=== PATIENT | female | born 1955 | race Caucasian/White ===

== ENCOUNTER 2019-06-27 06:43 | Outpatient (CLI) | payer MEDICARE, SELFPAY ==
--- NOTE | 2019-06-27 06:55 | USCV_ITS ---
Susie Villavicencio Age: 63 Gender: F : 1955 Exam Date: 06/27/2019 07:25 Ordering Phys: Maggi Garnett SENIOR RISK MANAGER Technologist: Miranda Paige Exam Location: [facility] – [place] Indication: MURMUR BP: / HR: 73 Rhythm: Sinus Technical Quality: Very poor MEASUREMENTS (Male / Female) Normal Values 2D ECHO LV Diastolic Diameter PLAX 4.8 cm 4.2 - 5.9 / 3.9 - 5.3 cm LV Systolic Diameter PLAX 2.7 cm LV Chamber Size 3.1 cm IVS Diastolic Thickness 1.5 cm 0.6 - 1.0 / 0.6 - 0.9 cm IVS Systolic Thickness 1.8 cm LVPW Diastolic Thickness 1.3 cm 0.6 - 1.0 / 0.6 - 0.9 cm LVPW Systolic Thickness 1.9 cm RV Chamber Size 2.2 cm LVOT Diameter 2.0 cm LV Ejection Fraction 2D Teich 74.2 % LA Diameter 4.5 cm LA Width 3.6 cm LA Height 4.9 cm RA Width 2.3 cm RA Height 4.2 cm M-MODE LV Diastolic Diameter MM 4.8 cm 4.2 - 5.9 / 3.9 - 5.3 cm LV Systolic Diameter MM 3.3 cm LV Ejection Fraction MM Teich 60.1 % IVS Diastolic Thickness MM 1.6 cm 0.6 - 1.0 / 0.6 - 0.9 cm IVS Systolic Thickness MM 1.1 cm LVPW Diastolic Thickness MM 1.3 cm 0.6 - 1.0 / 0.6 - 0.9 cm LVPW Systolic Thickness MM 1.4 cm RV Diastolic Diameter MM 2.6 cm Aortic Annulus Diameter 2.8 cm LA Ao Ratio MM 1.6 MV E Point Septal Separation 0.8 cm DOPPLER AV Peak Velocity 223.0 cm/s LVOT Peak Velocity 91.0 cm/s AV Area Cont Eq vti 1.0 cm squared AV Area Cont Eq pk 1.3 cm squared MV Area PHT 2.2 cm squared Mitral E to A Ratio 1.2 MV E' Velocity 6.0 cm/s Mitral E to MV E' Ratio 24.1 Mitral E to LV E' Lateral Ratio 23.2 Mitral E to LV E' Septal Ratio 25.5 TR Peak Velocity 194.3 cm/s TR Peak Gradient 15.1 mmHg TR Mean Velocity 164.1 cm/s TR Mean Gradient 11.0 mmHg TR Velocity Time Integral 48.5 cm TV Peak E Velocity 73.0 cm/s Right Atrial Pressure 3.0 mmHg Pulmonary Artery Systolic Pressu 18.1 mmHg PV Peak Velocity 80.0 cm/s FINDINGS Left Ventricle Left ventricular cavity not well visualized. Normal left ventricular size, systolic function and wall thickness, with no regional wall motion abnormalities. Normal diastolic function. Left ventricular ejection fraction is estimated at 65%. Right Ventricle Right ventricle not well visualized. Normal right ventricular size and systolic function. Right Atrium The right atrium is normal in size. Left Atrium Mildly increased left atrial size. Left atrium not well visualized. Mitral Valve Mitral valve not well visualized. Aortic Valve Aortic valve not well visualized. Tricuspid Valve Tricuspid valve not well visualized. Pulmonic Valve Pulmonic valve not well visualized. Pericardium Normal pericardium without effusion. Aorta Normal ascending aorta dimension. CONCLUSIONS Left ventricular cavity not well visualized. Normal left ventricular size, systolic function and wall thickness, with no regional wall motion abnormalities. Normal diastolic function. Left ventricular ejection fraction is estimated at 65%. Mildly increased left atrial size. Left atrium not well visualized. There are no prior echocardiogram studies to compare. Dr. Sharan Bailey MD (Electronically Signed) Final Date: 27 June 2019 10:26 S
--- NOTE | 2019-06-27 06:55 | US_ITS ---
WS: [id number] ABDOMINAL ULTRASOUND LIMITED REASON FOR VISIT: ABNORMAL RESULTS OF LIVER FUNCTION STUDIES TECHNIQUE: Grayscale and Doppler ultrasound examination of the abdomen. FINDINGS: Pancreas: Appears normal Abdominal aorta and IVC: Appears normal. Liver: Liver measures 17.1 cm in length. Steatosis changes throughout the liver. Normal hepatopedal c irculation Gallbladder: The gallbladder is not demonstrated. Common bile duct measured 0.49 cm. Right kidney: Right kidney measures 12.5 cm x 5.1 cm x 5.6 cm. Right kidney cortex measures 1.54 cm. No hydronephrosis no stones. US/US abdomen limited [id number] IMPRESSION: Fatty infiltration of the liver. The gallbladder is not demonstrated.
== END 2019-06-27 06:44 | disposition home or self-care (01) ==
LOC: US 06:46
PROVIDERS: Family Provider Family Medicine; Visit Provider Nurse Practitioner Family
DX: I51.7 Cardiomegaly (principal); K76.0 Fatty (change of) liver, not elsewhere classified; R01.1 Cardiac murmur, unspecified; R94.4 Abnormal results of kidney function studies
CPT/HCPCS: 76705; 93306

== ENCOUNTER 2019-11-30 13:33 | Outpatient (CLI) | payer MEDICARE, SELFPAY ==
--- NOTE | 2019-11-30 13:50 | XR_ITS ---
WS: [id number] EXAM: Chest: PA and lateral DATE OF EXAMINATION: 11/30/2019, 1359 hours COMPARISON: Chest x-ray from 04/06/2018. HISTORY: Patient is 64 years old with atraumatic chest pain chest wall pain.. FINDINGS: The heart size is slightly enlarged. Has increased in size in the interval. The mediastinal contours are normal. Pulmonary vascularity is congested. Not convinced of definite pulmonary edema however. No area of consolidation. No effusion, or pneumothorax. Bone density is normal in appearance. XR/XR chest 2V* [id number] IMPRESSION: Interval enlargement of the cardiac silhouette. Pulmonary vascular congestion without definite pulmonary edema. No consolidating infiltrate.
== END 2019-11-30 13:34 | disposition home or self-care (01) ==
LOC: RADWPI 13:38
PROVIDERS: PCP Nurse Practitioner Family; Visit Provider Nurse Practitioner Family
DX: R07.89 Other chest pain (principal); R09.89 Other specified symptoms and signs involving the circulatory and respiratory systems
CPT/HCPCS: 71046

== ENCOUNTER 2019-12-27 13:42 | Outpatient (CLI) | payer MEDICARE, SELFPAY ==
--- NOTE | 2019-12-27 14:00 | USCV_ITS ---
Susie Villavicencio Age: 64 Gender: F : 1955 Exam Date: 12/27/2019 14:17 Ordering Phys: Maggi GarnettP Technologist: Miranda Paige Exam Location: [facility] – [place] Indication: SOB BP: 150 / 77 HR: 75 Rhythm: Other Technical Quality: Technically difficult study MEASUREMENTS (Male / Female) Normal Values 2D ECHO LV Diastolic Diameter PLAX 4.5 cm 4.2 - 5.9 / 3.9 - 5.3 cm LV Systolic Diameter PLAX 3.0 cm LV Chamber Size 4.9 cm IVS Diastolic Thickness 1.4 cm 0.6 - 1.0 / 0.6 - 0.9 cm IVS Systolic Thickness 1.7 cm LVPW Diastolic Thickness 1.0 cm 0.6 - 1.0 / 0.6 - 0.9 cm LVPW Systolic Thickness 1.5 cm RV Chamber Size 3.9 cm LVOT Diameter 2.0 cm LV Ejection Fraction 2D Teich 62.2 % LA Diameter 4.1 cm LA Width 4.3 cm LA Height 4.4 cm RA Width 3.5 cm RA Height 3.9 cm Aorta at Sinotubular Diameter 2.5 cm M-MODE LV Diastolic Diameter MM 7.1 cm 4.2 - 5.9 / 3.9 - 5.3 cm LV Systolic Diameter MM 3.2 cm LV Ejection Fraction MM Teich 84.7 % IVS Diastolic Thickness MM 1.8 cm 0.6 - 1.0 / 0.6 - 0.9 cm IVS Systolic Thickness MM 1.7 cm LVPW Diastolic Thickness MM 1.3 cm 0.6 - 1.0 / 0.6 - 0.9 cm LVPW Systolic Thickness MM 1.4 cm Aortic Annulus Diameter 3.0 cm LA Ao Ratio MM 1.4 MV E Point Septal Separation 0.5 cm DOPPLER AV Peak Velocity 270.0 cm/s LVOT Peak Velocity 140.0 cm/s AV Area Cont Eq vti 1.6 cm squared AV Area Cont Eq pk 1.6 cm squared MV Area PHT 3.0 cm squared Mitral E to A Ratio 1.1 MV E' Velocity 10.0 cm/s Mitral E to MV E' Ratio 18.1 Mitral E to LV E' Lateral Ratio 16.0 Mitral E to LV E' Septal Ratio 21.1 TV Peak E Velocity 64.0 cm/s PV Peak Velocity 89.0 cm/s FINDINGS Left Ventricle Normal left ventricular size and systolic function, EF 55%. No gross wall motion normalities noted. Mild concentric left ankle hypertrophy.Grade III/IV diastolic dysfunction (restrictive filling pattern), severely elevated filling pressures. Right Ventricle The right ventricle is normal in size and function. Right Atrium The right atrium is normal in size. Left Atrium Mildly increased left atrial size. Mitral Valve Thickened mitral valve. Moderate mitral annular calcification. Aortic Valve Mild aortic valve stenosis, mean gradient 15.9 mmHg, RYAN 1.6 cm squared. Tricuspid Valve No gross abnormalities noted Pulmonic Valve Pulmonic valve not well visualized. Pericardium Normal pericardium without effusion. Aorta Normal ascending aorta dimension. CONCLUSIONS Normal left ventricular size and systolic function, EF 55%. No gross wall motion normalities noted. Mild concentric left ankle hypertrophy. Grade III/IV diastolic dysfunction (restrictive filling pattern), severely elevated filling pressures. Mildly increased left atrial size. Mild aortic valve stenosis, mean gradient 15.9 mmHg, RYAN 1.6 cm squared. Thickened mitral valve. Moderate mitral annular calcification. There is no pericardial effusion. There are no intracardiac masses. Comparison with the previous study is difficult because of the difference in the technical quality. Dr Saul Cai MD [facility] (Electronically Signed) Final Date: 27 December 2019 19:34 S
== END 2019-12-27 13:43 | disposition home or self-care (01) ==
PROVIDERS: PCP Nurse Practitioner Family; Visit Provider Nurse Practitioner Family
DX: R06.02 Shortness of breath (principal); I08.0 Rheumatic disorders of both mitral and aortic valves
CPT/HCPCS: 93306

== ENCOUNTER 2020-08-27 11:09 | Inpatient (IN) | payer MEDICARE, SELFPAY ==
[2020-08-27] VITALS (34 sets, daily range): BP systolic 87–139; BP diastolic 48–90; PULSE 49–145; RESP 11–32; TEMP 36.2–36.8; O2SAT 93–100
--- NOTE | 2020-08-27 11:28 | CT_ITS ---
WS: [id number] CT HEAD TECHNIQUE: Noncontrast CT of the head obtained from the skullbase to the vertex. CLINICAL INFORMATION: altered mental status COMPARISON: None. DLP: 1754.[address] scans at [facility] use at least one of these dose optimization techniques: automat ed exposure control; mA and/or kV adjustment per patient size (includes targeted exams where dose is matched to clinical indication); or iterative reconstruction. FINDINGS: No evidence of intracranial hemorrhage or mass effect. Ventricular system and basal cisterns are gates nt. Mild small vessel changes with moderate parenchymal volume loss. No extra-axial fluid collections . No evidence of mass or mass effect. Intracranial vascular calcification. Paranasal sinuses and mastoid air cells are well aerated. .Normal visualized soft tissues. CT/CT head wo con* [id number] IMPRESSION: 1. No evidence of intracranial hemorrhage or mass effect. 2. Mild small vessel changes. Moderate parenchymal volume loss. 3. No acute intracranial findings.
--- NOTE | 2020-08-27 11:28 | XRR_ITS ---
PROCEDURE INFORMATION: Exam: XR Chest Exam date and time: 08/27/2020 12:52 PM Age: 64 years old Clinical indication: Cough and dyspnea; Patient HX: PT was uncooperative; Additional info: Dyspnea/cough TECHNIQUE: Imaging protocol: XR of the chest. Views: 1 view. COMPARISON: CR XR chest 2V* [id number] 11/30/2019 1:57 PM FINDINGS: Lungs: Unremarkable. No consolidation. Pleural spaces: Unremarkable. No pleural effusion. No pneumothorax. Heart/Mediastinum: The cardiac silhouette is mildly enlarged but unchanged. Bones/joints: Unremarkable. XR/XR chest 1V portable [id number] IMPRESSION: No acute findings.
--- NOTE | 2020-08-27 11:31 | ED_ITS ---
HPI - Altered Mental Status General: Chief Complaint: Altered Mental Status Stated Complaint: CONFUSED/ BLOOD IN URINE Time Seen by Provider: 08/27/20 11:13 History of Present Illness: HPI narrative: 64-year-old female brought in by EMS with altered mental status. She lives with a friend evidently last known time she was known well was last evening. She is delirious now unable to really answer any questions she has a known history of diabetes mellitus. Her brother is in the room with her he said he seen her several days ago she was unable to get out of bed and was soiling herself in bed he thought she looked jaundiced at that time she has known known history of cirrhosis. No reported fever there is report of hematuria for the last several days. She pulled out her IV in route with EMS and has blood smeared on her hands and forearms. MD complaint: altered mental status and confusion Onset (ago): hour(s) Timing confirmed by: family member Severity: severe Consistency of symptoms: Getting Worse Associated symptoms: Reports delusions Review of Systems General: Reports: ROS unobtainable due to mental status [facility] ED PFSH: Medical History Grade III diastolic dysfunction Hyperlipidemia Hypertension Type 2 diabetes mellitus Social History Smoking and tobacco status: former smoker Alcohol intake: unknown Substance/Drug Use: unknown Caregiver/support person: Yes Lives independently: Yes Household members: friend(s) Housing: House Physical Exam Const: ORIENTATION/CONSCIOUSNESS: Yes awake HENMT: COMMON NORMALS: normocephalic and atraumatic HEAD & SCALP: normocephalic and atraumatic Neck/C-Spine: COMMON NORMALS: no JVD Resp: COMMON NORMALS: normal respiratory effort, No retractions, No use of accessory muscles and clear to auscultation bilaterally AUSCULTATION: clear to auscultation bilaterally Cardio: COMMON NORMALS: no JVD, regular rhythm and No murmurs present (Cardio) RATE: tachycardic RHYTHM: regular rhythm GI: COMMON NORMALS: Soft to palpation and No hepatosplenomegaly present AUSCULTATION: Yes normoactive bowel sounds PALPATION: Yes Soft to palpation, No Tenderness to palpation present (GI), No Guarding due to palpation present (GI) and Yes No hepatosplenomegaly present Extremity: COMMON NORMALS: normal to inspection, capillary refill normal and no calf tenderness GENERAL: Yes edema (Trace lower extremity edema) Psych: THOUGHT CONTENT: Yes delusions Skin: COMMON NORMALS: no rashes or lesions noted GENERAL SKIN EXAM: no rashes or lesions noted Course Vital Signs: Vital signs: Vital Signs Temperature 96.6 F L 08/30/20 04:00 Pulse Rate 66 08/30/20 06:00 Respiratory Rate 24 H 08/30/20 04:00 Blood Pressure 113/65 08/30/20 04:00 Pulse Oximetry 95 08/30/20 04:00 MDM - Altered Mental Status MDM Narrative: Medical decision making narrative: Patient septic with altered mental status. According to family members at the bedside patient had diarrhea for several days prior was found covered in feces suspect her metabolic alkalosis from hydration and loss from diarrhea. She is septic no definitive cause is found discussed with hospitalist she may need further evaluation including lumbar tap. Discussed antibiotics with hospitalist. Orders written. Lab Data: Labs: Lab Results 08/27/20 08/27/20 08/27/20 Range/Units 11:46 11:57 12:06 WBC 8.4 (4.0-10.0) 10^3/ uL RBC 3.58 L (4.1-5.3) 10^6/u L Hgb 12.2 (11.5-15.3) g/dL Hct 36.2 L (37.0-47.0) % MCV 101.1 H (81-99) fL MCH 34.1 H (28.0-34.0) pg MCHC 33.7 (30.0-36.0) g/dL RDW 17.5 H (12.1-15.1) % Plt Count 159 (130-400) 10^3/c mm MPV 11.8 H (7.4-10.4) fL Neut % (Auto) 67.9 % Lymph % (Auto) 18.2 % [place] % (Auto) 10.7 % Eos % (Auto) 2.0 % Baso % (Auto) 0.6 % Neut # (Auto) 5.73 (1.8-7.7) 10^3/u L Lymph # (Auto) 1.5 (0.8-4.8) 10^3/u L [place] # (Auto) 0.9 (0.2-0.9) 10^3/u L Eos # (Auto) 0.2 (0.0-0.8) 10^3/u L Baso # (Auto) 0.1 (0.0-0.1) 10^3/u L Nucleated RBC % (a uto) 0 % Nucleated RBCs # 0.0 /100WBC Specimen Type Arterial Sample Site Radial, left ABG pH 7.55 H (7.35-7.45) ABG pCO2 35.4 (35-45) mmHg ABG pO2 67.4 L (80.0-100.0) mmH g ABG HCO3 30.9 H (22-26) mmol/L ABG O2 Saturation 96.1 ABG Base Excess 8.2 H (-2.0-2.0) mmol/ L Caio Test Pos A-a O2 Gradient 4.9 L (5-10) mmHg Hematocrit 39.5 (37-47) % Hgb O2 Saturation 94.1 L (95-100) % Carboxyhemoglobin 1.9 (0.4-20.1) %THgb Methemoglobin 0.1 L (0.4-1.5) % Total Hemoglobin 12.9 (12-16) g/dL Sodium 133.0 (131-143) mmol/L Potassium 3.4 L (3.5-5.0) mmol/L Glucose 250.0 H (70-115) mg/dL Ionized Calcium 1.1 (1.1-1.4) mmol/L O2 Delivery Device Room air FiO2 21.0 % Pipe Inspector ID Ed Chloride (98-107) mmol/L Carbon Dioxide (22-29) mmol/L Anion Gap (5-19) BUN (8-23) mg/dL Creatinine (0.5-0.9) mg/dL GFR Calculation (90-130) mL/min POC Glucose 265 H (70-110) mg/dL Calculated Osmolal ity (285-295) mOsm/k g Lactic Acid (0.5-2.2) mmol/L Lactic Acid (Sepsi s) (0.5-2.2) mmol/L Calcium (8.5-10.5) mg/dL Magnesium (1.7-2.3) mg/dL Iron (37-145) ug/dL TIBC mcg/dl % Saturation (20-50) % Unsat Iron Binding (112-347) ug/dL Total Bilirubin (0.15-1.2) mg/dL AST (0-32) U/L ALT (0-33) U/L Alkaline Phosphata se (35-105) IU/L Ammonia (11-51) umol/L Creatine Kinase (26-192) U/L C-Reactive Protein (0.0-4.9) mg/L NT-Pro-B Natriuret Pep (0-125) pg/mL Total Protein (6.6-8.7) g/dL Albumin (3.5-5.2) g/dL Globulin (1.3-4.6) g/dL Lipase (13-60) U/L Procalcitonin (0-0.5) ng/mL TSH (0.27-4.20) uIU/ mL Urine Color (Yellow) Urine Appearance (CLEAR) Urine pH (5-7) Ur Specific Gravit y (1.005-1.030) Urine Protein (Negative) Urine Glucose (UA) (Normal) Urine Ketones (Negative) Urine Blood (Negative) Urine Nitrate (Negative) Urine Bilirubin (Negative) Urine Urobilinogen (Negative) mg/dL Ur Leukocyte Kinjal ase (Negative) Urine RBC (0-2) /hpf Urine WBC (0-5) /hpf Ur Squamous Epith Cells (0-5) /hpf Amorphous Sediment Urine Bacteria (NONE) /hpf Urine Mucus /hpf Ur Random Sodium mmol/L Ur Random Potassiu m mmol/L Ur Random Chloride mmol/L Urine Opiates Scre en (Negative) ng/mL Ur Barbiturates Sc reen (Negative) ng/mL Ur Phencyclidine S crn (Negative) ng/mL Ur Amphetamines Sc reen (Negative) ng/mL U Benzodiazepines Scrn (Negative) ng/mL Urine Cocaine Scre en (Negative) ng/mL U Marijuana (THC) Screen (Negative) ng/mL Ethyl Alcohol (0-10) mg/dL Serum Ketones (Negative) 08/27/20 08/27/20 08/27/20 Range/Units 12:32 12:32 12:32 WBC (4.0-10.0) 10^3/ uL RBC (4.1-5.3) 10^6/u L Hgb (11.5-15.3) g/dL Hct (37.0-47.0) % MCV (81-99) fL MCH (28.0-34.0) pg MCHC (30.0-36.0) g/dL RDW (12.1-15.1) % Plt Count (130-400) 10^3/c mm MPV (7.4-10.4) fL Neut % (Auto) % Lymph % (Auto) % [place] % (Auto) % Eos % (Auto) % Baso % (Auto) % Neut # (Auto) (1.8-7.7) 10^3/u L Lymph # (Auto) (0.8-4.8) 10^3/u L [place] # (Auto) (0.2-0.9) 10^3/u L Eos # (Auto) (0.0-0.8) 10^3/u L Baso # (Auto) (0.0-0.1) 10^3/u L Nucleated RBC % (a uto) % Nucleated RBCs # /100WBC Specimen Type Sample Site ABG pH (7.35-7.45) ABG pCO2 (35-45) mmHg ABG pO2 (80.0-100.0) mmH g ABG HCO3 (22-26) mmol/L ABG O2 Saturation ABG Base Excess (-2.0-2.0) mmol/ L Caio Test A-a O2 Gradient (5-10) mmHg Hematocrit (37-47) % Hgb O2 Saturation (95-100) % Carboxyhemoglobin (0.4-20.1) %THgb Methemoglobin (0.4-1.5) % Total Hemoglobin (12-16) g/dL Sodium (131-143) mmol/L Potassium (3.5-5.0) mmol/L Glucose (70-115) mg/dL Ionized Calcium (1.1-1.4) mmol/L O2 Delivery Device FiO2 % Pipe Inspector ID Chloride (98-107) mmol/L Carbon Dioxide (22-29) mmol/L Anion Gap (5-19) BUN (8-23) mg/dL Creatinine (0.5-0.9) mg/dL GFR Calculation (90-130) mL/min POC Glucose (70-110) mg/dL Calculated Osmolal ity (285-295) mOsm/k g Lactic Acid (0.5-2.2) mmol/L Lactic Acid (Sepsi s) (0.5-2.2) mmol/L Calcium (8.5-10.5) mg/dL Magnesium (1.7-2.3) mg/dL Iron (37-145) ug/dL TIBC mcg/dl % Saturation (20-50) % Unsat Iron Binding (112-347) ug/dL Total Bilirubin (0.15-1.2) mg/dL AST (0-32) U/L ALT (0-33) U/L Alkaline Phosphata se (35-105) IU/L Ammonia (11-51) umol/L Creatine Kinase (26-192) U/L C-Reactive Protein (0.0-4.9) mg/L NT-Pro-B Natriuret Pep (0-125) pg/mL Total Protein (6.6-8.7) g/dL Albumin (3.5-5.2) g/dL Globulin (1.3-4.6) g/dL Lipase (13-60) U/L Procalcitonin (0-0.5) ng/mL TSH (0.27-4.20) uIU/ mL Urine Color Dark yellow (Yellow) Urine Appearance Hazy A (CLEAR) Urine pH 5 (5-7) Ur Specific Gravit y 1.020 (1.005-1.030) Urine Protein Neg (Negative) Urine Glucose (UA) Trace H (Normal) Urine Ketones Negative (Negative) Urine Blood Neg (Negative) Urine Nitrate Negative (Negative) Urine Bilirubin 1+ H (Negative) Urine Urobilinogen 12 H (Negative) mg/dL Ur Leukocyte Kinjal ase Negative (Negative) Urine RBC 0-4 H (0-2) /hpf Urine WBC None (0-5) /hpf Ur Squamous Epith Cells 10-15 H (0-5) /hpf Amorphous Sediment Not Reportable Urine Bacteria 1+ H (NONE) /hpf Urine Mucus 3+ /hpf Ur Random Sodium 45 mmol/L Ur Random Potassiu m 26 mmol/L Ur Random Chloride 44 mmol/L Urine Opiates Scre en Negative (Negative) ng/mL Ur Barbiturates Sc reen Negative (Negative) ng/mL Ur Phencyclidine S crn Negative (Negative) ng/mL Ur Amphetamines Sc reen Negative (Negative) ng/mL U Benzodiazepines Scrn Negative (Negative) ng/mL Urine Cocaine Scre en Negative (Negative) ng/mL U Marijuana (THC) Screen Negative (Negative) ng/mL Ethyl Alcohol (0-10) mg/dL Serum Ketones (Negative) 08/27/20 08/27/20 08/27/20 Range/Units 12:40 12:40 12:40 WBC (4.0-10.0) 10^3/ uL RBC (4.1-5.3) 10^6/u L Hgb (11.5-15.3) g/dL Hct (37.0-47.0) % MCV (81-99) fL MCH (28.0-34.0) pg MCHC (30.0-36.0) g/dL RDW (12.1-15.1) % Plt Count (130-400) 10^3/c mm MPV (7.4-10.4) fL Neut % (Auto) % Lymph % (Auto) % [place] % (Auto) % Eos % (Auto) % Baso % (Auto) % Neut # (Auto) (1.8-7.7) 10^3/u L Lymph # (Auto) (0.8-4.8) 10^3/u L [place] # (Auto) (0.2-0.9) 10^3/u L Eos # (Auto) (0.0-0.8) 10^3/u L Baso # (Auto) (0.0-0.1) 10^3/u L Nucleated RBC % (a uto) % Nucleated RBCs # /100WBC Specimen Type Sample Site ABG pH (7.35-7.45) ABG pCO2 (35-45) mmHg ABG pO2 (80.0-100.0) mmH g ABG HCO3 (22-26) mmol/L ABG O2 Saturation ABG Base Excess (-2.0-2.0) mmol/ L Caio Test A-a O2 Gradient (5-10) mmHg Hematocrit (37-47) % Hgb O2 Saturation (95-100) % Carboxyhemoglobin (0.4-20.1) %THgb Methemoglobin (0.4-1.5) % Total Hemoglobin (12-16) g/dL Sodium 133 L (131-143) mmol/L Potassium 3.5 (3.5-5.0) mmol/L Glucose 243 H (70-115) mg/dL Ionized Calcium (1.1-1.4) mmol/L O2 Delivery Device FiO2 % Pipe Inspector ID Chloride 95 L (98-107) mmol/L Carbon Dioxide 29 (22-29) mmol/L Anion Gap 12.5 (5-19) BUN 7 L (8-23) mg/dL Creatinine 0.3 L (0.5-0.9) mg/dL GFR Calculation 224.7 H (90-130) mL/min POC Glucose (70-110) mg/dL Calculated Osmolal ity 282 L (285-295) mOsm/k g Lactic Acid 2.8 H (0.5-2.2) mmol/L Lactic Acid (Sepsi s) (0.5-2.2) mmol/L Calcium 8.0 L (8.5-10.5) mg/dL Magnesium 1.5 L (1.7-2.3) mg/dL Iron (37-145) ug/dL TIBC mcg/dl % Saturation (20-50) % Unsat Iron Binding (112-347) ug/dL Total Bilirubin 4.8 H (0.15-1.2) mg/dL AST 42 H (0-32) U/L ALT 22 (0-33) U/L Alkaline Phosphata se 98 (35-105) IU/L Ammonia (11-51) umol/L Creatine Kinase 89 (26-192) U/L C-Reactive Protein (0.0-4.9) mg/L NT-Pro-B Natriuret Pep (0-125) pg/mL Total Protein 7.0 (6.6-8.7) g/dL Albumin 2.3 L (3.5-5.2) g/dL Globulin 4.7 H (1.3-4.6) g/dL Lipase 23 (13-60) U/L Procalcitonin (0-0.5) ng/mL TSH (0.27-4.20) uIU/ mL Urine Color (Yellow) Urine Appearance (CLEAR) Urine pH (5-7) Ur Specific Gravit y (1.005-1.030) Urine Protein (Negative) Urine Glucose (UA) (Normal) Urine Ketones (Negative) Urine Blood (Negative) Urine Nitrate (Negative) Urine Bilirubin (Negative) Urine Urobilinogen (Negative) mg/dL Ur Leukocyte Kinjal ase (Negative) Urine RBC (0-2) /hpf Urine WBC (0-5) /hpf Ur Squamous Epith Cells (0-5) /hpf Amorphous Sediment Urine Bacteria (NONE) /hpf Urine Mucus /hpf Ur Random Sodium mmol/L Ur Random Potassiu m mmol/L Ur Random Chloride mmol/L Urine Opiates Scre en (Negative) ng/mL Ur Barbiturates Sc reen (Negative) ng/mL Ur Phencyclidine S crn (Negative) ng/mL Ur Amphetamines Sc reen (Negative) ng/mL U Benzodiazepines Scrn (Negative) ng/mL Urine Cocaine Scre en (Negative) ng/mL U Marijuana (THC) Screen (Negative) ng/mL Ethyl Alcohol < 10 (0-10) mg/dL Serum Ketones Negative (Negative) 08/27/20 08/27/20 08/27/20 Range/Units 12:40 12:40 12:40 WBC (4.0-10.0) 10^3/ uL RBC (4.1-5.3) 10^6/u L Hgb (11.5-15.3) g/dL Hct (37.0-47.0) % MCV (81-99) fL MCH (28.0-34.0) pg MCHC (30.0-36.0) g/dL RDW (12.1-15.1) % Plt Count (130-400) 10^3/c mm MPV (7.4-10.4) fL Neut % (Auto) % Lymph % (Auto) % [place] % (Auto) % Eos % (Auto) % Baso % (Auto) % Neut # (Auto) (1.8-7.7) 10^3/u L Lymph # (Auto) (0.8-4.8) 10^3/u L [place] # (Auto) (0.2-0.9) 10^3/u L Eos # (Auto) (0.0-0.8) 10^3/u L Baso # (Auto) (0.0-0.1) 10^3/u L Nucleated RBC % (a uto) % Nucleated RBCs # /100WBC Specimen Type Sample Site ABG pH (7.35-7.45) ABG pCO2 (35-45) mmHg ABG pO2 (80.0-100.0) mmH g ABG HCO3 (22-26) mmol/L ABG O2 Saturation ABG Base Excess (-2.0-2.0) mmol/ L Caio Test A-a O2 Gradient (5-10) mmHg Hematocrit (37-47) % Hgb O2 Saturation (95-100) % Carboxyhemoglobin (0.4-20.1) %THgb Methemoglobin (0.4-1.5) % Total Hemoglobin (12-16) g/dL Sodium (131-143) mmol/L Potassium (3.5-5.0) mmol/L Glucose (70-115) mg/dL Ionized Calcium (1.1-1.4) mmol/L O2 Delivery Device FiO2 % Pipe Inspector ID Chloride (98-107) mmol/L Carbon Dioxide (22-29) mmol/L Anion Gap (5-19) BUN (8-23) mg/dL Creatinine (0.5-0.9) mg/dL GFR Calculation (90-130) mL/min POC Glucose (70-110) mg/dL Calculated Osmolal ity (285-295) mOsm/k g Lactic Acid (0.5-2.2) mmol/L Lactic Acid (Sepsi s) (0.5-2.2) mmol/L Calcium (8.5-10.5) mg/dL Magnesium (1.7-2.3) mg/dL Iron 107 (37-145) ug/dL TIBC 123.50764 mcg/dl % Saturation 86.0 H (20-50) % Unsat Iron Binding < 17 L (112-347) ug/dL Total Bilirubin (0.15-1.2) mg/dL AST (0-32) U/L ALT (0-33) U/L Alkaline Phosphata se (35-105) IU/L Ammonia 38 (11-51) umol/L Creatine Kinase (26-192) U/L C-Reactive Protein 55.7 H (0.0-4.9) mg/L NT-Pro-B Natriuret Pep 516 H (0-125) pg/mL Total Protein (6.6-8.7) g/dL Albumin (3.5-5.2) g/dL Globulin (1.3-4.6) g/dL Lipase (13-60) U/L Procalcitonin 0.75 H (0-0.5) ng/mL TSH 2.21 (0.27-4.20) uIU/ mL Urine Color (Yellow) Urine Appearance (CLEAR) Urine pH (5-7) Ur Specific Gravit y (1.005-1.030) Urine Protein (Negative) Urine Glucose (UA) (Normal) Urine Ketones (Negative) Urine Blood (Negative) Urine Nitrate (Negative) Urine Bilirubin (Negative) Urine Urobilinogen (Negative) mg/dL Ur Leukocyte Kinjal ase (Negative) Urine RBC (0-2) /hpf Urine WBC (0-5) /hpf Ur Squamous Epith Cells (0-5) /hpf Amorphous Sediment Urine Bacteria (NONE) /hpf Urine Mucus /hpf Ur Random Sodium mmol/L Ur Random Potassiu m mmol/L Ur Random Chloride mmol/L Urine Opiates Scre en (Negative) ng/mL Ur Barbiturates Sc reen (Negative) ng/mL Ur Phencyclidine S crn (Negative) ng/mL Ur Amphetamines Sc reen (Negative) ng/mL U Benzodiazepines Scrn (Negative) ng/mL Urine Cocaine Scre en (Negative) ng/mL U Marijuana (THC) Screen (Negative) ng/mL Ethyl Alcohol (0-10) mg/dL Serum Ketones (Negative) 08/27/20 08/27/20 Range/Units 15:15 15:15 WBC (4.0-10.0) 10^3/ uL RBC (4.1-5.3) 10^6/u L Hgb (11.5-15.3) g/dL Hct (37.0-47.0) % MCV (81-99) fL MCH (28.0-34.0) pg MCHC (30.0-36.0) g/dL RDW (12.1-15.1) % Plt Count (130-400) 10^3/c mm MPV (7.4-10.4) fL Neut % (Auto) % Lymph % (Auto) % [place] % (Auto) % Eos % (Auto) % Baso % (Auto) % Neut # (Auto) (1.8-7.7) 10^3/u L Lymph # (Auto) (0.8-4.8) 10^3/u L [place] # (Auto) (0.2-0.9) 10^3/u L Eos # (Auto) (0.0-0.8) 10^3/u L Baso # (Auto) (0.0-0.1) 10^3/u L Nucleated RBC % (a uto) % Nucleated RBCs # /100WBC Specimen Type Sample Site ABG pH (7.35-7.45) ABG pCO2 (35-45) mmHg ABG pO2 (80.0-100.0) mmH g ABG HCO3 (22-26) mmol/L ABG O2 Saturation ABG Base Excess (-2.0-2.0) mmol/ L Caio Test A-a O2 Gradient (5-10) mmHg Hematocrit (37-47) % Hgb O2 Saturation (95-100) % Carboxyhemoglobin (0.4-20.1) %THgb Methemoglobin (0.4-1.5) % Total Hemoglobin (12-16) g/dL Sodium 132 L (131-143) mmol/L Potassium 4.5 (3.5-5.0) mmol/L Glucose 215 H (70-115) mg/dL Ionized Calcium (1.1-1.4) mmol/L O2 Delivery Device FiO2 % Pipe Inspector ID Chloride 95 L (98-107) mmol/L Carbon Dioxide 23 (22-29) mmol/L Anion Gap 18.5 (5-19) BUN 8 (8-23) mg/dL Creatinine 0.2 L (0.5-0.9) mg/dL GFR Calculation 358.7 H (90-130) mL/min POC Glucose (70-110) mg/dL Calculated Osmolal ity 279 L (285-295) mOsm/k g Lactic Acid (0.5-2.2) mmol/L Lactic Acid (Sepsi s) 6.2 H* (0.5-2.2) mmol/L Calcium 8.1 L (8.5-10.5) mg/dL Magnesium (1.7-2.3) mg/dL Iron (37-145) ug/dL TIBC mcg/dl % Saturation (20-50) % Unsat Iron Binding (112-347) ug/dL Total Bilirubin (0.15-1.2) mg/dL AST (0-32) U/L ALT (0-33) U/L Alkaline Phosphata se (35-105) IU/L Ammonia (11-51) umol/L Creatine Kinase (26-192) U/L C-Reactive Protein (0.0-4.9) mg/L NT-Pro-B Natriuret Pep (0-125) pg/mL Total Protein (6.6-8.7) g/dL Albumin (3.5-5.2) g/dL Globulin (1.3-4.6) g/dL Lipase (13-60) U/L Procalcitonin (0-0.5) ng/mL TSH (0.27-4.20) uIU/ mL Urine Color (Yellow) Urine Appearance (CLEAR) Urine pH (5-7) Ur Specific Gravit y (1.005-1.030) Urine Protein (Negative) Urine Glucose (UA) (Normal) Urine Ketones (Negative) Urine Blood (Negative) Urine Nitrate (Negative) Urine Bilirubin (Negative) Urine Urobilinogen (Negative) mg/dL Ur Leukocyte Kinjal ase (Negative) Urine RBC (0-2) /hpf Urine WBC (0-5) /hpf Ur Squamous Epith Cells (0-5) /hpf Amorphous Sediment Urine Bacteria (NONE) /hpf Urine Mucus /hpf Ur Random Sodium mmol/L Ur Random Potassiu m mmol/L Ur Random Chloride mmol/L Urine Opiates Scre en (Negative) ng/mL Ur Barbiturates Sc reen (Negative) ng/mL Ur Phencyclidine S crn (Negative) ng/mL Ur Amphetamines Sc reen (Negative) ng/mL U Benzodiazepines Scrn (Negative) ng/mL Urine Cocaine Scre en (Negative) ng/mL U Marijuana (THC) Screen (Negative) ng/mL Ethyl Alcohol (0-10) mg/dL Serum Ketones (Negative) Discharge Plan Discharge Patient Disposition: Admitted As Inpatient Admit Provider: Carlos Valiente Clinical Impression: Metabolic alkalosis, Type 2 diabetes mellitus, Altered mental status, Sepsis Condition: Stable Coding Level of Care Code ED Gear Shaver Set Up Operator for Chg Fwd Exam Comprehensive
[2020-08-27 11:55] LABS: ABG PCO2 35.4 mmHg (35-45); ABG PH Result 7.55 (7.35-7.45); Alveolar-Arterial Oxygen Gradi 4.9 mmHg (5-10); Arterial Blood Gas Hematocrit 39.5 % (37-47); Base Excess ABG 8.2 mmol/L (-2.0-2.0); Blood Gas Allen Test Pos; Blood Gas Sample Type Arterial; Carboxyhemoglobin 1.9 %THgb (0.4-20.1); HCO3 ABG 30.9 mmol/L (22-26); HGB O2 Sat 94.1 % (95-100); Ionized Calcium Level - ABG 1.1 mmol/L (1.1-1.4); Methemoglobin 0.1 % (0.4-1.5); Oxygen Saturation ABG 96.1; PO2 ABG 67.4 mmHg (80.0-100.0); Potassium Level - ABG 3.4 mmol/L (3.5-5.0); Total Hemoglobin 12.9 g/dL (12-16)
[2020-08-27 11:56] LABS: Blood Gas Operator Identificat ED; Blood Gas Sample Site Radial, left; Oxygen Device ROOM AIR
[2020-08-27 12:07] LABS: Glucose Point of Care 265 mg/dL (70-110)
[2020-08-27] MEDS: ondansetron 2 mg/ML SDV 2 mL 4 MG IVP (12:08)
[2020-08-27 12:47] LABS: Basophils # 0.1 10^3/uL (0.0-0.1); Basophils % 0.6 %; Eosinophils # 0.2 10^3/uL (0.0-0.8); Hematocrit 36.2 % (37.0-47.0); Hemoglobin 12.2 g/dL (11.5-15.3); Lymphocytes # 1.5 10^3/uL (0.8-4.8); Lymphocytes % 18.2 %; Mean Corpuscular HGB Conc 33.7 g/dL (30.0-36.0); Mean Corpuscular Hemoglobin 34.1 pg (28.0-34.0); Mean Corpuscular Volume 101.1 fL (81-99); Mean Platelet Volume 11.8 fL (7.4-10.4); Monocytes # 0.9 10^3/uL (0.2-0.9); Monocytes % 10.7 %; Neutrophils # 5.73 10^3/uL (1.8-7.7); Neutrophils % 67.9 %; Nucleated Red Blood Cells % 0 %; Platelet Count 159 10^3/cmm (130-400); Red Blood Count 3.58 10^6/uL (4.1-5.3); Red Cell Distribution Width 17.5 % (12.1-15.1); White Blood Count 8.4 10^3/uL (4.0-10.0)
[2020-08-27 13:05] LABS: Ammonia 38 umol/L (11-51)
[2020-08-27 13:09] LABS: Lactic Sepsis W/Reflex 2.8 mmol/L (0.5-2.2)
[2020-08-27 13:10] LABS: Alanine Aminotransferase 22 U/L (0-33); Albumin Level 2.3 g/dL (3.5-5.2); Alkaline Phosphatase 98 IU/L (35-105); Anion Gap 12.5 (5-19); Aspartate Amino Transferase 42 U/L (0-32); Blood Urea Nitrogen 7 mg/dL (8-23); Carbon Dioxide 29 mmol/L (22-29); Chloride 95 mmol/L (98-107); Creatine Phosphokinase 89 U/L (26-192); Globulin 4.7 g/dL (1.3-4.6); Glomerular Filtration Rate 224.7 mL/min (90-130); Glucose 243 mg/dL (65-115); Lipase 23 U/L (13-60); Magnesium 1.5 mg/dL (1.7-2.3); Osmolality Calculated 282 mOsm/kg (285-295); Potassium 3.5 mmol/L (3.5-5.1); Sodium 133 mmol/L (136-145); Total Bilirubin 4.8 mg/dL (0.15-1.2)
[2020-08-27 13:16] LABS: Ketone (Acetest) Serum Negative (Negative)
[2020-08-27 13:17] LABS: Amphetamines Screen Urine Negative (Negative); Barbiturates Screen Urine Negative (Negative); Benzodiazepines Screen Urine Negative (Negative); Bilirubin Urine 1+ (Negative); Blood Urine Neg (Negative); Cocaine Screen Urine Negative (Negative); Glucose Urine UA Trace (Normal); Ketones Urine Negative (Negative); Nitrate Urine Negative (Negative); Opiate Screen Urine Negative (Negative); PCP Screen Urine Negative (Negative); Protein Urine Neg (Negative); THC Screen Urine Negative (Negative); Urine Appearance Hazy (CLEAR); Urine Color Dark Yellow (Yellow); pH Urine 5 (5-7)
[2020-08-27 13:18] LABS: Add Urine Microscopic? YES; Leukocyte Esterase Urine Negative (Negative); Urobilinogen Urine 12 mg/dL (Negative)
[2020-08-27 13:20] LABS: Alcohol Level < 10 mg/dL (0-10)
[2020-08-27 13:24] LABS: Add Urine Culture? No; Bacteria Urine 1+ /hpf; Mucus Urine 3+ /hpf; RBC Urine 0-4 /hpf (0-2)
[2020-08-27] MEDS: LORazepam 2 mg/mL INJ 1 mL IVP ×2 (14:08→15:31)
--- NOTE | 2020-08-27 14:08 | CT_ITS ---
WS: [id number] CT ABDOMEN PELVIS TECHNIQUE: Contrast-enhanced CT of the abdomen and pelvis with coronal and sagittal reformatted image s. CLINICAL INFORMATION: abd pain DLP: 1414.[address] scans at [facility] use at least one of these dose optimization techniques: automat ed exposure control; mA and/or kV adjustment per patient size (includes targeted exams where dose is matched to clinical indication); or iterative reconstruction. FINDINGS: Slightly cirrhotic contour to the liver. Small amount of perihepatic ascites. Splenomegaly. Adrenal g lands are normal. Normal renal parenchymal enhancement. No hydronephrosis. Normal caliber abdominal a eddi. Mild aortic calcification. Fat-containing umbilical hernia. Diffuse body wall anasarca. Simeon catheter. Mild pelvic ascites. Sigmoid diverticulosis. No evidence of acute diverticulitis. No evidence of small or large bowel obstruction. Colon is decompressed. Mild inflammatory stranding and induration involving the right colon extending into the proximal transverse colon suspicious for infe ctious or inflammatory colitis. Diffuse endometrial thickening measuring 12 mm abnormal in a postmenopausal patient. Recommend follow -up with hysteroscopy to evaluate for neoplasia versus hyperplasia. Cardiomegaly. Lung bases are well aerated. CT/CT abdomen pelvis w con* [id number] IMPRESSION: 1. Right ascending colon colonic thickening with induration and inflammatory s tranding extending into the proximal transverse colon consistent with infectiou s or inflammatory colitis. 2. Cirrhotic liver with small amount of perihepatic ascites. Splenomegaly. 3. Diffuse endometrial thickening measuring 12 mm abnormal in a postmenopausal patient and suspicious for hyperplasia versus neoplasia. Recommend follow-up w ith hysteroscopy. 4. Simeon catheter. 5. Mild abdominal and pelvic ascites 6. Sigmoid diverticulosis. No evidence of acute diverticulitis. 7. Fat-containing umbilical hernia.
[2020-08-27] MEDS: haloperidol inj 5 mg/mL INJ 1 mL IVP ×2 (14:30→15:01)
[2020-08-27 14:31] LABS: Reflex Lactate Order REFLEX LACTIC ORDERD
[2020-08-27] MEDS: ziprasidone 20 mg/mL SDV 10 MG IM (15:06)
[2020-08-27] MEDS: diphenhydrAMINE 50 mg/mL SDV 1mL IVP (15:30)
[2020-08-27] MEDS: ziprasidone 20 mg/mL SDV (15:31)
[2020-08-27] MEDS: water for injection-sterile 10 ML (15:31)
[2020-08-27] MEDS: iodixanol 320 mg/mL 100mL Btl IV (15:46)
[2020-08-27 15:50] LABS: Blood Urea Nitrogen 8 mg/dL (8-23); Calcium 8.1 mg/dL (8.5-10.5); Carbon Dioxide 23 mmol/L (22-29); Chloride 95 mmol/L (98-107); Glomerular Filtration Rate 358.7 mL/min (90-130); Glucose 215 mg/dL (65-115); Osmolality Calculated 279 mOsm/kg (285-295); Sodium 132 mmol/L (136-145)
[2020-08-27 15:56] LABS: Lactic Acid level (Lactate) 6.2 mmol/L (0.5-2.2)
[2020-08-27 15:57] LABS: Anion Gap 18.5 (5-19); Potassium 4.5 mmol/L (3.5-5.1)
--- NOTE | 2020-08-27 16:00 | P.HP_ITS ---
Providers/Chief Complaint Admitting Physician: Carlos Valiente MD Primary Care Provider: JOSEFINA Fisher Chief Complaint: CONFUSED/ BLOOD IN URINE History of Present Illness Most detailed history reviewed from the chart or through the brother who is bedside. Susie Villavicencio is a 64 year old female with past medical history type 2 diabetes mellitus, hypertension, hyperlipidemia, grade 3 diastolic dysfunction lives at home with a friend. As per the brother patient was okay 2 days ago when he spoke with her on the phone though when he went to visit her in the evening he saw her laying in quadrant in bed covered with feces after which he called [facility]. Today because patient was confused and was acting agitated at home friends called the patient to the ER through EMS. The brother there was a concern for diarrhea and possible red-colored urine during the day but not really sure if she is having any bleeding in the bowel movements or through urine. In the ER patient was found to fairly agitated for which she required up to 10 mg of IV Ativan and multiple doses of Haldol. Patient's blood work showed hemoglobin 12.2, white count of 8.8, MCV of 101, ABG showing a pH of 7.55, PO2 of 67, CO2 35, chemistry showing sodium of 132, chloride of 95, creatinine of 0.2, anion gap of 18, lactic acid of 6.2, AST/ALT of 42/22, UA negative for nitrite or leukoesterase. Review of Systems General: Reports: ROS unobtainable due to medical condition Medications/Allergies Home Medications Medication Instructions Recorded Confirmed Last Taken Type albuterol sulfate 2 puff INHALATION Q6H PRN 08/27/20 08/27/20 Unknown History amlodipine 10 mg PO DAILY 08/27/20 08/27/20 Unknown History dulaglutide [Trulicity] 0.75 mg SUBCUT Q7D 08/27/20 08/27/20 Unknown History gabapentin 100 mg PO TID 08/27/20 08/27/20 Unknown History glipizide 5 mg PO DAILY 08/27/20 08/27/20 Unknown History hydrochlorothiazide 25 mg PO DAILY 08/27/20 08/27/20 Unknown History lovastatin 20 mg PO DAILY 08/27/20 08/27/20 Unknown History metformin 1,000 mg PO BID 08/27/20 08/27/20 Unknown History omeprazole 20 mg PO DAILY 08/27/20 08/27/20 Unknown History sertraline 100 mg PO DAILY 08/27/20 08/27/20 Unknown History tizanidine 4 mg PO TID PRN 08/27/20 08/27/20 Unknown History tramadol 50 mg PO BID PRN 08/27/20 08/27/20 Unknown History Allergies Allergy/AdvReac Type Severity Reaction Status Date / Time No Known Allergies Allergy Verified 08/27/20 11:52 PFSH Acute PFSH: Medical History (Updated 08/27/20 @ 16:19 by Carlos Valiente MD) Grade III diastolic dysfunction Hyperlipidemia Hypertension Type 2 diabetes mellitus Social History (Updated 08/27/20 @ 16:06 by Carlos Valiente MD) Smoking and tobacco status: former smoker Alcohol intake: unknown Substance/Drug Use: unknown Caregiver/support person: Yes Lives independently: Yes Household members: friend(s) Housing: House Vitals/I&O/Wt Last Vital Signs Temp 98.3 F 08/27/20 11:48 Pulse 115 H 08/27/20 11:53 Resp 18 08/27/20 11:53 BP 139/66 08/27/20 11:53 Pulse Ox 93 08/27/20 11:53 Physical Exam Narrative: EXAM NARRATIVE: General: Agitated, follows command on reorientation, alert but not oriented, morbidly obese HEENT: PERRLA, pupils bilaterally equal and reactive Chest: Normal vesicular breath sounds, no added sounds, equal good air entry bilaterally CVS: S1-S2 regular, no murmurs, tachycardia, no gallops, no rubs Abdomen: Soft, nontender, no organomegaly, bowel sounds present Neuro: No focal deficits, no facial deformity, AO x3, moving all 4 limbs appropriately Data : 08/28/20 01:19 08/28/20 01:19 A&P Assessment and plan (1) Altered mental status: Status: Acute (2) Diarrhea: Status: Acute (3) Metabolic alkalosis: Status: Acute (4) Elevated lactic acid level: Status: Acute (5) Grade III diastolic dysfunction: Status: Acute (6) Type 2 diabetes mellitus: Status: Acute (7) Hypertension: Status: Acute (8) Sepsis: Status: Acute Additional A&P Information Altered mental status of unknown cause: Can be secondary to polypharmacy. Patient has multiple bottles of medication in her room. Not sure how many medication she has been getting at home. She is supposed to be on sertraline 100 mg, tizanidine as needed, gabapentin 100 3 times daily. Sepsis ruled in as patient is tachycardic, altered, metabolic encephalopathy with elevated lactate. Start patient on vancomycin and Zosyn for now. Check blood cultures, urine culture, MRSA swab, procalcitonin, urine drug screen, alcohol level, acetaminophen level. Will DC antibiotics as per the culture results. Low probability of meningitis for now as patient is moving her neck without any difficulty and she has not been having any nausea or vomiting as per the history. If patient does not improve in the next 48 hours will plan for lumbar puncture once patient is less agitated. Check ESR, CRP, lactate, TSH, urine lites, stool studies, flu swab, urine Legionella, MRSA swab, proBNP, procalcitonin, TIBC, ferritin, acetaminophen level, salicylate level, ketone levels, methanol levels, ammonia level. Patient's urine negative for any sediments. CT abdomen pelvis with contrast to rule out GI source. Patient has been having diarrhea. Stool studies. Check for C. difficile. CT head with and without contrast. Low probability of stroke as patient is moving all her limbs appropriately and has no facial abnormality. Normal saline at 75 cc/h. Precedex for agitation. If needed can use Haldol 0.5 every 4 hours as needed. Will uptitrate medications as needed. We will try to avoid oversedation to avoid respiratory arrest. Simeon catheterization for urine monitoring. For now hold off on sertraline and tizanidine. Continuing gabapentin 100 mg 3 times daily for now. Metabolic alkalosis: Most likely secondary to diarrhea. Stool studies as above. Fluid resuscitation as above. We will continue to monitor. Patient does not have any respiratory acidosis for now. Lactic acidosis. Treatment as above. We will continue to monitor. Hypertension: Goal blood pressure less than 140/90 of Hg. For now continue to hold off on medications and will start as needed. Type 2 diabetes mellitus: Check HbA1c. Insulin sliding scale for now. N.p.o. for now. History of grade 3 diastolic dysfunction: No signs of CHF for now. Will monitor for fluid overload. Last echocardiogram done December 2019 shows an EF 55% with grade 3 diastolic dysfunction, mild aortic stenosis, moderate mitral annular calcification, mildly increased left atrial size. For now hold off on home oral medications. Admit to ICU. NPO. Full code as per brother at bedside. He states he and his sister will be making medical decisions if needed. Lovenox for DVT prophylaxis. We will change medications as per clinical picture going forward. Attestations Medical Necessity Statement*: Patient requires admission for more than 2 m idnights for altered mental status of unknown cause, metabolic alkalosis, lactic acidosis, agitation Critical Care Time: Critical Care Time (min): 80 Coding Level of Care Code Acute Gear Hobber Operator for [facility] Fwd Diagnoses Altered mental status R41.82 Diarrhea R19.7 Metabolic alkalosis E87.3 Elevated lactic acid level R79.89 Grade III diastolic dysfunction I51.9 Type 2 diabetes mellitus E11.9 Hypertension I10 Sepsis A41.9
[2020-08-27 16:41] LABS: C Reactive Protein 55.7 mg/L (0.0-4.9); Thyroid Stimulating Hormone 2.21 uIU/mL (0.27-4.20)
[2020-08-27 16:43] LABS: NT Pro B Type Natriuretic Pept 516 pg/mL (0-125); Procalcitonin 0.75 ng/mL (0-0.5)
[2020-08-27 16:54] LABS: Iron 107 ug/dL (37-145)
[2020-08-27] MEDS: dexmedetomidine 400 MCG in sodium chloride 0.9% (100 ml) 100 ML IV (17:55)
[2020-08-27 18:05] LABS: Glucose Point of Care 188 mg/dL (70-110)
[2020-08-27] MEDS: sodium chloride 0.9% 1,000 ML 999 ML IV (18:17)
[2020-08-27] MEDS: famotidine 20 mg/2 mL INJ IVP (18:17)
[2020-08-27] MEDS: enoxaparin 40 mg/0.4 mL Syringe SUBCUT (18:17)
[2020-08-27] MEDS: piperacillin-tazobactam 3.375 GM in sodium chloride 0.9% (plus) 50 ML IV (18:17)
[2020-08-27] MEDS: sodium chloride 0.9% 1,000 ML 100 ML IV (19:50)
[2020-08-27 20:08] LABS: Ketone (Acetest) Serum Negative (Negative)
[2020-08-27] MEDS: budesonide 0.5 mg/2 mL Neb INHALATION (20:19)
[2020-08-27] MEDS: ipratropium-albuterol 3 mL Neb INHALATION (20:19)
[2020-08-27 20:20] LABS: Lactic Sepsis W/Reflex 2.3 mmol/L (0.5-2.2)
[2020-08-27 20:24] LABS: Ferritin 619 ng/mL (15-150)
[2020-08-27] MEDS: magnesium sulfate premix 2 GM/50 ML PIGGYBACK IV (20:26)
[2020-08-27] MEDS: nystatin powder 15 gm Btl 1 APPLIC TOPICAL (20:26)
[2020-08-27 20:28] LABS: Acetaminophen < 5.0 ug/mL (10-30); Alcohol Level < 10 mg/dL (0-10); Salicylate < 0.3 mg/dL (3-10)
[2020-08-27 20:28] LABS: Potassium, Radom Urine 26 mmol/L; Urine Random Chloride 44 mmol/L; Urine Random Sodium 45 mmol/L
[2020-08-27 20:41] LABS: Unsaturated Iron Binding < 17 ug/dL (112-347)
[2020-08-27 21:25] LABS: Reflex Lactate Order REFLEX LACTIC ORDERD
[2020-08-27 21:26] LABS: Glucose Point of Care 192 mg/dL (70-110)
[2020-08-27 21:26] LABS: Glucose Point of Care 269 mg/dL (70-110)
[2020-08-27] MEDS: vancomycin 1,500 MG/300 ML PIGGYBACK 200 MG IV (21:32)
[2020-08-27 23:48] LABS: Influenza A by IFA Negative (Negative); Influenza B by IFA Negative (Negative)
[2020-08-28] VITALS (79 sets, daily range): BP systolic 76–147; BP diastolic 42–106; PULSE 46–85; RESP 11–35; TEMP 34.4–37.2; O2SAT 91–100
[2020-08-28] MEDS: piperacillin-tazobactam 3.375 GM in sodium chloride 0.9% (plus) 50 ML IV ×2 (00:03→10:27)
[2020-08-28 01:32] LABS: Basophils # 0.1 10^3/uL (0.0-0.1); Basophils % 0.8 %; Eosinophils # 0.1 10^3/uL (0.0-0.8); Eosinophils % 1.8 %; Hematocrit 32.4 % (37.0-47.0); Hemoglobin 10.5 g/dL (11.5-15.3); Lymphocytes # 1.6 10^3/uL (0.8-4.8); Lymphocytes % 25.7 %; Mean Corpuscular HGB Conc 32.4 g/dL (30.0-36.0); Mean Corpuscular Hemoglobin 34.5 pg (28.0-34.0); Mean Corpuscular Volume 106.6 fL (81-99); Mean Platelet Volume 10.6 fL (7.4-10.4); Monocytes # 0.5 10^3/uL (0.2-0.9); Monocytes % 8.1 %; Neutrophils # 3.87 10^3/uL (1.8-7.7); Neutrophils % 62.9 %; Nucleated Red Blood Cells % 0 %; Platelet Count 95 10^3/cmm (130-400); Red Blood Count 3.04 10^6/uL (4.1-5.3); Red Cell Distribution Width 17.6 % (12.1-15.1); White Blood Count 6.2 10^3/uL (4.0-10.0)
[2020-08-28 01:48] LABS: Alanine Aminotransferase 15 U/L (0-33); Albumin Level 1.6 g/dL (3.5-5.2); Alkaline Phosphatase 66 IU/L (35-105); Aspartate Amino Transferase 33 U/L (0-32); Blood Urea Nitrogen 9 mg/dL (8-23); Calcium 7.2 mg/dL (8.5-10.5); Carbon Dioxide 32 mmol/L (22-29); Chloride 101 mmol/L (98-107); Globulin 3.8 g/dL (1.3-4.6); Glomerular Filtration Rate 358.7 mL/min (90-130); Glucose 138 mg/dL (65-115); Osmolality Calculated 281 mOsm/kg (285-295); Sodium 135 mmol/L (136-145); Total Bilirubin 3.7 mg/dL (0.15-1.2); Total Protein 5.4 g/dL (6.6-8.7)
[2020-08-28 01:49] LABS: Creatine Phosphokinase 198 U/L (26-192); Ferritin 608 ng/mL (15-150); Lactic Acid level (Lactate) 1.2 mmol/L (0.5-2.2)
[2020-08-28 01:50] LABS: Anion Gap 5.8 (5-19); Potassium 3.8 mmol/L (3.5-5.1)
[2020-08-28 02:04] LABS: Phosphorus 3.8 mg/dL (2.5-4.5)
[2020-08-28 02:07] LABS: Estmated Average Glucose 146; Hemoglobin A1C 6.7 % (4.0-6.0)
[2020-08-28] MEDS: ipratropium-albuterol 3 mL Neb INHALATION ×4 (02:35→20:31)
[2020-08-28] MEDS: famotidine 20 mg/2 mL INJ IVP ×2 (03:29→16:04)
[2020-08-28] MEDS: sodium chloride 0.9% 1,000 ML 100 ML IV ×3 (03:29→23:42)
[2020-08-28 07:44] LABS: Glucose Point of Care 139 mg/dL (70-110)
[2020-08-28] MEDS: budesonide 0.5 mg/2 mL Neb INHALATION ×2 (08:34→20:30)
--- NOTE | 2020-08-28 09:06 | PM.PN ---
Subjective Subjective: Interval history: Patient seen multiple times during the day. On examination today morning she was a lot calmer than yesterday though completely incoherent. Moving around in bed not responding to commands. She has been on Precedex drip going up to 0.3 which had to be turned off overnight because of bradycardia but restarted today morning. During the day her meals were maintained over 60 but because urine output was dropping she was started on Levophed drip. She did not have any bowel movements and has remained afebrile. Patient's sister has been at bedside. She states she will be meeting with her production recovery operator later in the week today to see if she can get guardianship of the patient. Lumbar puncture was tried by Dr. Soto in the morning today which was failed because of body habitus. Lab work appreciated. Vitals/I&O/Wt Last Vital Signs Temp 97.5 F L 08/28/20 09:00 Pulse 66 08/28/20 09:00 Resp 26 H 08/28/20 09:00 BP 132/93 08/28/20 08:30 Pulse Ox 95 08/28/20 09:00 08/27/20 08/28/20 08/28/20 22:59 06:59 14:59 Intake Total 1145.577 / 1385.792 3445.85 / 2278.427 0 / 0 Output Total 525 / 525 Balance 1145.577 / 1145.577 607.85 / 1753.427 0 / 0 Weight last 48 hrs Weight 113.534 kg Weight 115.666 kg Physical Exam Narrative: EXAM NARRATIVE: General: Agitated, follows command on reorientation, alert but not oriented, morbidly obese HEENT: PERRLA, pupils bilaterally equal and reactive Chest: Normal vesicular breath sounds, no added sounds, equal good air entry bilaterally CVS: S1-S2 regular, no murmurs, tachycardia, no gallops, no rubs Abdomen: Soft, nontender, no organomegaly, bowel sounds present Neuro: No focal deficits, no facial deformity, AO x3, moving all 4 limbs appropriately Urinary Catheter Management^: Simeon: Cath Placed During This Visit: yes Reason for Continuing Indwelling Catheter: Accurate Measurement of Urinary Output in Critically Ill Patients Urinary Catheter Date of Insertion: 08/27/20 Urinary Catheter Time of Insertion: 16:04 Data : 08/28/20 01:19 08/28/20 01:19 Micro: Microbiology 08/27/20 23:18 Bacterial Antigens - Final Urine Kidney 08/27/20 01:19 Blood Culture - Preliminary Blood SPECIMEN COLLECTED 08/27/20 01:00 Blood Culture - Preliminary Blood SPECIMEN COLLECTED 08/27/20 23:18 Legionella Urinary Antigen - Final Urine Catheterized A&P Assessment and plan (1) Sepsis: Status: Acute (2) Altered mental status: Status: Acute (3) HIV (human immunodeficiency virus infection): Status: Acute (4) Diarrhea: Status: Acute (5) Metabolic alkalosis: Status: Acute (6) Elevated lactic acid level: Status: Acute (7) Bilirubinemia: Status: Acute (8) Liver cirrhosis: Status: Acute (9) Type 2 diabetes mellitus: Status: Acute (10) Grade III diastolic dysfunction: Status: Acute (11) Hypertension: Status: Acute Additional A&P Information Sepsis: Ruled in from tachycardia, and mental status, metabolic instability, elevated lactate, low blood pressures. Start patient on Levophed. Keep mining arterial pressure over 65. Altered mental status of unknown cause: Can be secondary to metabolic encephalopathy from sepsis versus polypharmacy versus acute HIV syndrome. Given the new diagnosis of HIV and severe colitis cannot rule out meningitis at this time. Failed lumbar puncture today. Fluoroscopy guided lumbar puncture tomorrow. For now start patient on ceftriaxone stop Zosyn for better POWER SHOVEL MECHANIC penetration. Continue vancomycin. Start patient on ampicillin 2 g every 4 hours, acyclovir 1 g every 8 hours. Monitor blood cultures, urine culture. Check procalcitonin, MRSA swab. Patient have deranged AST, bilirubin and low platelet count. Check HIV, hepatitis panel, tick panel. As patient's HIV is positive we will check for Cryptosporidium, cytomegalovirus, chlamydia/gonorrhea, toxoplasmosis, leptospirosis. Continue with normal saline at 75 cc/h. Albumin every 8 hourly. Keep saturation over 92%. Patient is DNR/DNI. Precedex as needed for agitation will monitor for bradycardia. Can use Haldol 0.5 every 4 hours. Continue with Simeon catheterization for strict input output charting. Stool studies awaited. HIV: CD4 count, genotype, infectious work-up for superadded opportunistic infections. Diarrhea: No bowel movement since admission. Stool studies awaited. For now continue to monitor. Hypertension: Goal blood pressure less than 140/90 emergency with mean over 65. Hold off on antihypertensives for now. Type 2 diabetes mellitus: Insulin sliding scale every 6 hours. N.p.o. for now. Lactic acidosis: Secondary to sepsis, colitis. Continue to monitor. Repeat lactate tomorrow morning. Grade 3 diastolic dysfunction: Monitor for fluid overload. Severely guarded prognosis. CODE STATUS: Discussed CODE STATUS with patient's twin sister who is at bedside Ms. Mehta. She states patient would never wanted to be on mechanical support or any heroic measures. CODE STATUS changed to DNR/DNI. Hold off on Lovenox for possible lumbar puncture tomorrow and low platelet counts today. NPO. Discussed with patient's sister at bedside regarding new diagnosis of HIV. All the questions were answered. Also discussed that given the new diagnosis of HIV, persistent altered mental status is difficult to state how the patient will do going forward. Did also mention that the chances of opportunistic infection including meningitis are very high for which she is being covered with multiple antimicrobials for now. Continue with ICU care. Attestations Medical Necessity Statement*: Patient requires further hospitalization for management of acute metabolic encephalopathy, sepsis, colitis, altered mental status, new diagnosis of HIV, lactic acidosis Critical Care Time: Critical Care Time (min): 80 Coding Level of Care Code Acute Hot Tar Roofer Helper for [facility] Fwd Diagnoses Sepsis A41.9 Altered mental status R41.82 HIV (human immunodeficiency virus infection) B20 Diarrhea R19.7 Metabolic alkalosis E87.3 Elevated lactic acid level R79.89 Bilirubinemia E80.6 Liver cirrhosis K74.60 Type 2 diabetes mellitus E11.9 Grade III diastolic dysfunction I51.9 Hypertension I10
[2020-08-28 09:47] LABS: Folate Level 7.2 ng/mL (4.8-37.3)
[2020-08-28 09:48] LABS: Procalcitonin 0.61 ng/mL (0-0.5); Vitamin B12 479 pg/mL (232-1245)
[2020-08-28] MEDS: lactulose oral liq 20 gm/30 mL UDC PO (10:33)
[2020-08-28] MEDS: nystatin powder 15 gm Btl 1 APPLIC TOPICAL ×2 (10:34→19:11)
[2020-08-28] MEDS: vancomycin 1,500 MG/300 ML PIGGYBACK 200 MG IV ×2 (10:35→21:09)
--- NOTE | 2020-08-28 10:36 | PC.CHAP ---
Pastoral Care Encounter/Spiritual Assessment Type of Contact [] Declined tape cutter visit [] Patient/Family/Request visit [] Outpatient visit [] Follow-up visit [] Physician referral [] Code/Alert [x Routine visit [] Staff referral [] Actively dying [] Patient sleeping [] Family support [] [] Out of room [] Palliative care [] [] Receiving care in room [] Pre-surgical visit [] Trauma [] Long length of stay [x ICU visit [] Other: Relational/Emotional Strength [] Patient feels connected with others/family/visitors/staff [] Distress [] Loneliness/isolation [] Abandonment Spirituality of Patient [] Person of [place] [] Attends Hoahaoism of their [place] [] Believes in Prayer [] Reads Bible or Protestant materials [] There are Spiritual issues to be addressed Electro Optical Engineer Interventions [x Prayer [] Active listening [] Non-anxious presence [] Spiritual/emotional support [] Crisis/trauma care [] Spiritual counseling [] Bereavement support [] Provided bereavement packet [] Provided Bible/devotional materials [] Provided toy/stuffed animal, coloring book to patient or family member [] Provided Communion [] Anointing/[place] [] Salvation [x] Completed spiritual assessment [] Other: Impact on Illness or Injury [] Angry [] Fearful [] Anxious [] Often cries [] Exhaustion [] Unable to work [] Unable to attend bahai [] Unable to walk/stand [] Unable to read [] Unable to drive [] Unable to eat/drink [] Unable to sleep [] Unable to be with family [] Patient intubated [] Other: Summary Time spent with patient
[2020-08-28] MEDS: lanolin oint 7 gm 1 APPLIC TOPICAL (11:09)
[2020-08-28 11:22] LABS: HIV 1 & 2 Antibody Non-Reactive (Non-Reactiv); HIV 1 & 2 Antigen Reactive (Non-Reactiv)
--- NOTE | 2020-08-28 14:13 | PC.NURSE ---
QT interval .044. Got up to 0.56 last night. No additional Haldol given since she was in ER. Precedex is running at 0.1, Resting comfortably
[2020-08-28 14:47] LABS: Hepatitis A Antibody IgM Non-Reactive (Nonreactive); Hepatitis B Core AB, Total Non-Reactive (Nonreactive); Hepatitis B Surface AB 26.9 (11.5-1000); Hepatitis B Surface Antigen Non-Reactive (Nonreactive); Hepatitis C Virus Antibody Non-Reactive (Nonreactive)
--- NOTE | 2020-08-28 15:00 | PM.CONSULT ---
Providers/Reason For Consult Consulting Physican/Specialty*: Анна Barnett MD, Infectious disease Reason for Consult*: newly diagnosed HIV Attending Physician: Carlos Valiente MD Primary Care Provider: JOSEFINA Fisher History of Present Illness History of Present Illness Susie Villavicencio is a 64 year old female with a past medical history as outlined below with a past medical history as outlined below who was brought to the ER yesterday with complaints of altered mental status.. Patient is currently obtunded and cannot participate in history taking. History is obtained by reviewing the primary's note For her half brother and twin sister who do not live with her, patient was in her usual state of health until 1 day prior to presentation. When he went into see her today he saw her laying in a pool of feces and was concerned about her living conditions after which he called [facility]. Patient was confused agitated and eventually EMS was called to bring her to the ER. Patient was extremely agitated upon presentation, she received Ativan and multiple doses of Haldol and eventually needed to be placed on a Precedex drip. She was not alert or oriented. Labs were notable for hemoglobin of 12.2, sodium 132, anion gap of 18, lactate of 6.2, mild transaminitis. Part of her work-up included HIV testing of which HIV antigen has resulted positive. I confirmed with the microbiology lab that this testing was performed twice with the same results. CT of her abdomen showed right descending colonic thickening with induration and inflammatory stranding suspicious for infectious versus inflammatory colitis. Cirrhotic liver with small amount of perihepatic ascites. This is a new diagnosis for the patient, Review of Systems General: Reports: ROS unobtainable due to mental status Meds/Allergies Home Medications and Allergies Home Medications Medication Instructions Recorded Confirmed Last Taken Type albuterol sulfate 2 puff INHALATION Q6H PRN 08/27/20 08/27/20 Unknown History amlodipine 10 mg PO DAILY 08/27/20 08/27/20 Unknown History dulaglutide [Trulicity] 0.75 mg SUBCUT Q7D 08/27/20 08/27/20 Unknown History gabapentin 100 mg PO TID 08/27/20 08/27/20 Unknown History glipizide 5 mg PO DAILY 08/27/20 08/27/20 Unknown History hydrochlorothiazide 25 mg PO DAILY 08/27/20 08/27/20 Unknown History lovastatin 20 mg PO DAILY 08/27/20 08/27/20 Unknown History metformin 1,000 mg PO BID 08/27/20 08/27/20 Unknown History omeprazole 20 mg PO DAILY 08/27/20 08/27/20 Unknown History sertraline 100 mg PO DAILY 08/27/20 08/27/20 Unknown History tizanidine 4 mg PO TID PRN 08/27/20 08/27/20 Unknown History tramadol 50 mg PO BID PRN 08/27/20 08/27/20 Unknown History Allergies Allergy/AdvReac Type Severity Reaction Status Date / Time No Known Allergies Allergy Verified 08/27/20 11:52 Current Medications Current Medications Generic Name Dose Route Start Last Admin Trade Name Freq PRN Reason Stop Dose Admin Albuterol/Ipratropium 3 ml 08/27/20 21:00 08/29/20 02:43 Ipratropium-Albuterol 3 Ml Neb INHALATION 3 ml Q6H.RESPIRATORY SKY Administration Budesonide 0.5 mg 08/27/20 20:00 08/28/20 20:30 Budesonide 0.5 Mg/2 Ml Neb INHALATION 0.5 mg BID.RESPIRATORY SYK Administration Enoxaparin Sodium 40 mg 08/27/20 19:00 08/27/20 18:17 Enoxaparin 40 Mg/0.4 Ml Syringe SUBCUT 40 mg Q24H SKY Administration Famotidine 20 mg 08/27/20 16:00 08/29/20 03:07 Famotidine 20 Mg/2 Ml Inj IVP 20 mg Q12H SKY Administration Gabapentin 100 mg 08/27/20 18:00 08/28/20 16:58 Gabapentin 100 Mg Capsule PO Not Given BID SKY Dexmedetomidine HCl 400 mcg/ 104 mls @ 0 mls/hr 08/27/20 16:00 08/29/20 07:52 Sodium Chloride IV 0.5 mcg/kg/hr .Q0M SKY 17.1 mls/hr Administration Protocol Per Protocol Sodium Chloride 1,000 mls @ 100 mls/hr 08/27/20 17:36 08/28/20 23:42 Sodium Chloride 0.9% IV 100 mls/hr .Q10H SKY Administration Vancomycin/PEG/NADA/Lysine/Water 1,500 mg in 300 mls @ 200 mls/hr 08/27/20 22:00 08/28/20 22:40 Vancocin IV Infused Q12H SKY Infusion Ceftriaxone Sodium 2,000 mg/ 50 mls @ 100 mls/hr 08/28/20 16:30 08/29/20 04:10 Sodium Chloride IV Infused Q12H SKY Infusion Protocol Ampicillin Sodium 2,000 mg/ 50 mls @ 100 mls/hr 08/28/20 17:00 08/29/20 05:06 Sodium Chloride IV Infused Q4H SKY Infusion Protocol Acyclovir 1,000 mg/ Sodium 120 mls @ 120 mls/hr 08/28/20 17:00 08/29/20 02:05 Chloride IV Infused Q8H SKY Infusion Norepinephrine Bitartrate 4 mg 254 mls @ 0 mls/hr 08/28/20 18:15 08/29/20 05:07 / Dextrose IV 2 mcg/min .Q0M SKY 7.6 mls/hr Titration Protocol Per Protocol Insulin Aspart 0 unit 08/28/20 09:15 08/29/20 03:03 Insulin Aspart 100 Unit/1 Ml SUBCUT 4 unit Q6H SKY Administration Protocol Lactulose 20 gm 08/28/20 09:00 08/29/20 03:00 Lactulose Oral Liq 20 Gm/30 Ml Udc PO Not Given Q6H SKY Lanolin 1 applic 08/28/20 10:36 08/28/20 11:09 Lanolin Oint 7 Gm TOPICAL 1 applic PRN PRN Administration DRYNESS Nystatin 1 applic 08/27/20 19:00 08/28/20 19:11 Nystatin Powder 15 Gm Btl TOPICAL 1 applic BID SKY Administration PFSH Acute PFSH: Medical History Grade III diastolic dysfunction Hyperlipidemia Hypertension Type 2 diabetes mellitus Social History Smoking and tobacco status: former smoker Alcohol intake: unknown Substance/Drug Use: unknown Caregiver/support person: Yes Lives independently: Yes Household members: friend(s) Housing: House Vitals/I&O/Wt Last Vital Signs Temp 94.5 F L 08/29/20 03:45 Pulse 73 08/29/20 06:00 Resp 25 H 08/29/20 04:30 BP 84/49 08/29/20 04:30 Pulse Ox 97 08/29/20 04:30 08/28/20 08/29/20 08/29/20 22:59 06:59 14:59 Intake Total 720.573 / 2170.573 1296.545 / 3467.118 54.435 / 54.435 Output Total 300 / 300 425 / 725 Balance 420.573 / 1870.573 871.545 / 2742.118 54.435 / 54.435 Weight last 48 hrs Weight 118.841 kg Weight 113.534 kg Weight 115.666 kg Physical Exam Narrative: EXAM NARRATIVE: GEN: Lethargic, somnolent, disoriented HEENT: NC/ AT, PERRLA CVS: S1S2 N, no added sounds RS: CTA B/L Abd: Soft, nt/nd , bs+ DIRECTOR OF OUTREACH: no focal motor deficits, moves all extremities in bed EXT: obese, no cyanosis, clubbing or edema Urinary Catheter Management^: Simeon: Cath Placed During This Visit: yes Reason for Continuing Indwelling Catheter: Accurate Measurement of Urinary Output in Critically Ill Patients Urinary Catheter Date of Insertion: 08/27/20 Urinary Catheter Time of Insertion: 16:04 Data Micro: Micro: Microbiology 08/27/20 01:19 Blood Culture - Pr eliminary Blood NEGATIVE TO YRIS E 08/27/20 01:00 Blood Culture - Pr eliminary Blood NEGATIVE TO YRIS E 08/27/20 19:30 MRSA Culture - Fin al Nose 08/27/20 23:18 Bacterial Antigens - Final Urine Kidney HIV 1 & 2 Ant Reactive H Non-Reactiv Reactive results need confirmatory testing to verify. TESTING REPEATED BY [facility] FOR CONFIRMATION. HIV 1 & 2 Antib Non-Reactive Non-Reactiv HEPAIGM Non-Reactive Nonreactive Hep B Jose Ag Non-Reactive Nonreactive HEPB Surf AB 26.9 11.5-1000 STATUS of IMMUINITY Inconsistent with Immunity 0.0 - 8.4 mIU/mL Consistent with Indeterminate Immunity 8.5 - 11.4 mIU/mL Consistent with Immunity >= 11.5 mIU/mL Hep BC Total Non-Reactive Nonreactive Hep C AB Non-Reactive Other Data: Attestation for Other Data: I personally reviewed and interpreted the following: Other data: Ct abdomen/pelvis IMPRESSION: 1. Right ascending colon colonic thickening with induration and inflammatory stranding extending into the proximal transverse colon consistent with infectious or inflammatory colitis. 2. Cirrhotic liver with small amount of perihepatic ascites. Splenomegaly. 3. Diffuse endometrial thickening measuring 12 mm abnormal in a postmenopausal patient and suspicious for hyperplasia versus neoplasia. Recommend follow-up with hysteroscopy. 4. Simeon catheter. 5. Mild abdominal and pelvic ascites 6. Sigmoid diverticulosis. No evidence of acute diverticulitis. 7. Fat-containing umbilical hernia. Ct head IMPRESSION: 1. No evidence of intracranial hemorrhage or mass effect. 2. Mild small vessel changes. Moderate parenchymal volume loss. 3. No acute intracranial findings. CXR IMPRESSION: No acute findings. A&P Assessment and plan (1) HIV (human immunodeficiency virus infection): newly diagnosed HIV infection Unable to get furthere history from patient or family at this time to establish possible timeline and exposure Currently with acute encephalopathy, need to exclude acute meningoencephalitis per discussion with micro lab, HIV AG+ however antibody testing negative , which may be indicative of acute HIV infection check HIV VL, Cd4 count, HIV genotype, toxoplasma serology, g6PD testig, HLA [id number] testing , Quantiferon screening , serum RPR, urine GC and Chlamydia testing. Status: Acute Qualifiers: HIV symptom status: symptomatic Qualified Code(s): B20 - Human immunodeficiency virus [HIV] disease (2) Liver cirrhosis: NEgative hepatitis serology check tick panel, leptospirosis serology, reportedly patient's home was found to have severe mice infestation Status: Acute Qualifiers: Hepatic cirrhosis type: unspecified hepatic cirrhosis Ascites presence: without ascites Qualified Code(s): K74.60 - Unspecified cirrhosis of liver (3) Colitis: check eneteric parasite PCR panell, C diff antigen, serum CMV PCR (hepatitis,colitis,encephalitis) Status: Acute (4) Altered mental status: Agree with lumbar puncture , measure CSF opeening pressure May be related to acute HIV encephalopathy WHile awiting LP, start empiric meningitis coverage with CTX 2g iv q12h, vancomycin, ampicillin 2 g iv q4h and Acycclovir 100mg/kg q8h iv ; hold off on steroids for now CSF analysis, cell count, protein and glucose , gram stain and cx Serum and CSF crytptococcal antigens HSV DNA from CSF viral encephalitis panel, toxoplasma PCR, CMV DNA from CSF, VDRL on CSF , lyme antibodies on CSF , AFB smear and cx awaiting blood culture Status: Acute Qualifiers: Altered mental status type: delirium Qualified Code(s): R41.0 - Disorientation, unspecified Consult Attestations Medical Necessity Statement: AMS in patient with HIV,need to evaluate for opportunistic meningoencephalitis Critical Care Time: The high probability of a clinically significant, sudden or life threatening deterioration of the patient's [nervous, immune] system(s) required my full and direct attention, intervention and personal management. The critical care time is as shown. This time is in addition to time spent performing any reported procedures but includes the following: [x] Data and vital sign review and interpretation [x] Patient assessment, examination and intervention [x] Documentation [x] Medication orders and management Critical Care Time (min): 45 Coding Level of Care Code Acute [place] Machine Operator for [facility] Fwd Diagnoses HIV (human immunodeficiency virus infection) B20 HIV symptom status: symptomatic Liver cirrhosis K74.60 Hepatic cirrhosis type: unspecified hepatic cirrhosis Ascites presence: without ascites Colitis K52.9 Altered mental status R41.0 Altered mental status type: delirium
--- NOTE | 2020-08-28 15:51 | PC.NURSE ---
Tavo from [facility] called and states that he received a call from [facility]. He would like to come in and speak with family or pt. Currently there is no family here and pt is not alert enough to answer questions. He states that he will call back in a day or two.
[2020-08-28 17:15] LABS: Glucose Point of Care 184 mg/dL (70-110)
[2020-08-28] MEDS: acyclovir 1,000 MG in sodium chloride 0.9% (100 ml) 100 ML 120 MG IV (17:16)
[2020-08-28] MEDS: cefTRIAXone 2,000 MG in sodium chloride 0.9% (plus) 50 ML 100 MG IV (17:16)
[2020-08-28] MEDS: ampicillin 2,000 MG in sodium chloride 0.9% (plus) 50 ML 100 MG IV ×2 (19:07→21:11)
[2020-08-28] MEDS: dexmedetomidine 400 MCG in sodium chloride 0.9% (100 ml) 100 ML 6.8 MCG IV (19:36)
[2020-08-28 20:45] LABS: Glucose Point of Care 179 mg/dL (70-110)
[2020-08-28 23:26] LABS: INR 1.58 (0.8-1.2); Partial Thromboplastin Time 40.1 SECONDS (23.9-36.7)
[2020-08-28 23:27] LABS: Fibrinogen 204 mg/dL (174-498)
[2020-08-28 23:30] LABS: D Dimer 3.57 ug/mIFEU (0-0.59)
[2020-08-29] VITALS (62 sets, daily range): BP systolic 84–153; BP diastolic 49–100; PULSE 53–77; RESP 14–33; TEMP 34.4–36.7; O2SAT 93–100
[2020-08-29] MEDS: dexmedetomidine 400 MCG in sodium chloride 0.9% (100 ml) 100 ML 23.9 MCG IV (00:17)
[2020-08-29] MEDS: ampicillin 2,000 MG in sodium chloride 0.9% (plus) 50 ML 100 MG IV ×2 (01:04→04:33)
[2020-08-29] MEDS: acyclovir 1,000 MG in sodium chloride 0.9% (100 ml) 100 ML 120 MG IV (01:04)
[2020-08-29] MEDS: ipratropium-albuterol 3 mL Neb INHALATION ×4 (02:43→20:17)
[2020-08-29] MEDS: dexmedetomidine 400 MCG in sodium chloride 0.9% (100 ml) 100 ML 34.2 MCG IV (02:59)
[2020-08-29 03:05] LABS: Glucose Point of Care 189 mg/dL (70-110)
[2020-08-29] MEDS: famotidine 20 mg/2 mL INJ IVP ×2 (03:07→16:55)
[2020-08-29] MEDS: cefTRIAXone 2,000 MG in sodium chloride 0.9% (plus) 50 ML 100 MG IV ×2 (03:37→16:55)
[2020-08-29] MEDS: dexmedetomidine 400 MCG in sodium chloride 0.9% (100 ml) 100 ML 17.1 MCG IV ×5 (04:41→18:13)
--- NOTE | 2020-08-29 05:43 | PC.NURSE ---
Shift Summary Patient was very lethargic/sedated early on in the shift, around midnight patient started waking up, steadily had to increase her precidex to keep her from pulling out her lines and clothes, was not successful, patient managed to pull out one of her ivs and I was not able to replace it even with ultrasound, plan is for patient to get a picc line today. Patient is also supposed to go to radiology department for a Lumbar puncture since they were unable to do it at bedside. Patient had soft pressures so started her on levo, was able to wean her off the levo when she was awake but now she is back on it again. Patient has been very confused, agitated, and restless when she is awake, hallucinates and has no comprehension as to what is going on. Patient has a Simeon catheter and is getting iv fluids.
[2020-08-29 08:15] LABS: Glucose Point of Care 222 mg/dL (70-110)
[2020-08-29] MEDS: budesonide 0.5 mg/2 mL Neb INHALATION ×2 (08:37→20:17)
[2020-08-29] MEDS: lactulose oral liq 20 gm/30 mL UDC PO (08:44)
[2020-08-29] MEDS: gabapentin 100 mg Capsule PO (08:44)
--- NOTE | 2020-08-29 08:58 | PC.CHAP ---
Pastoral Care Encounter/Spiritual Assessment Type of Contact [] Declined bulk cooler installer visit [] Patient/Family/Request visit [] Outpatient visit [] Follow-up visit [] Physician referral [] Code/Alert [x] Routine visit [] Staff referral [] Actively dying [] Patient sleeping [] Family support [] [] Out of room [] Palliative care [] [] Receiving care in room [] Pre-surgical visit [] Trauma [] Long length of stay [x] ICU visit [] Other: Relational/Emotional Strength [] Patient feels connected with others/family/visitors/staff [] Distress [] Loneliness/isolation [] Abandonment Spirituality of Patient [] Person of [place] [] Attends Mu-Ism of their [place] [] Believes in Prayer [] Reads Bible or Episcopal materials [] There are Spiritual issues to be addressed Wire Stitcher Machine Interventions [x] Prayer [] Active listening [] Non-anxious presence [] Spiritual/emotional support [] Crisis/trauma care [] Spiritual counseling [] Bereavement support [] Provided bereavement packet [] Provided Bible/devotional materials [] Provided toy/stuffed animal, coloring book to patient or family member [] Provided Communion [] Anointing/[place] [] Salvation [x] Completed spiritual assessment [] Other: Impact on Illness or Injury [] Angry [] Fearful [] Anxious [] Often cries [] Exhaustion [] Unable to work [] Unable to attend holiness [] Unable to walk/stand [] Unable to read [] Unable to drive [] Unable to eat/drink [] Unable to sleep [] Unable to be with family [] Patient intubated [] Other: Summary Time spent with patient
[2020-08-29] MEDS: nystatin powder 15 gm Btl 1 APPLIC TOPICAL ×2 (09:08→18:24)
[2020-08-29 09:41] LABS: Basophils # 0.1 10^3/uL (0.0-0.1); Basophils % 0.7 %; Eosinophils # 0.2 10^3/uL (0.0-0.8); Eosinophils % 1.4 %; Hematocrit 35.1 % (37.0-47.0); Hemoglobin 11.6 g/dL (11.5-15.3); Lymphocytes # 1.5 10^3/uL (0.8-4.8); Lymphocytes % 14.3 %; Mean Corpuscular Hemoglobin 34.8 pg (28.0-34.0); Mean Corpuscular Volume 105.4 fL (81-99); Mean Platelet Volume 10.1 fL (7.4-10.4); Monocytes # 0.8 10^3/uL (0.2-0.9); Monocytes % 7.2 %; Neutrophils # 7.99 10^3/uL (1.8-7.7); Neutrophils % 75.9 %; Nucleated Red Blood Cells % 0 %; Platelet Count 136 10^3/cmm (130-400); Red Blood Count 3.33 10^6/uL (4.1-5.3); Red Cell Distribution Width 17.2 % (12.1-15.1); White Blood Count 10.5 10^3/uL (4.0-10.0)
[2020-08-29] MEDS: sodium chloride 0.9% 1,000 ML 100 ML IV ×2 (09:50→22:18)
[2020-08-29 10:02] LABS: Alanine Aminotransferase 15 U/L (0-33); Albumin Level 2.8 g/dL (3.5-5.2); Alkaline Phosphatase 55 IU/L (35-105); Aspartate Amino Transferase 29 U/L (0-32); Blood Urea Nitrogen 13 mg/dL (8-23); Calcium 7.6 mg/dL (8.5-10.5); Carbon Dioxide 25 mmol/L (22-29); Chloride 104 mmol/L (98-107); Globulin 3.2 g/dL (1.3-4.6); Glomerular Filtration Rate 358.7 mL/min (90-130); Glucose 210 mg/dL (65-115); Osmolality Calculated 290 mOsm/kg (285-295); Sodium 137 mmol/L (136-145)
[2020-08-29 10:08] LABS: Procalcitonin 0.47 ng/mL (0-0.5)
[2020-08-29 10:16] LABS: Vancomycin Trough 17.2 ug/mL (10-15)
[2020-08-29 10:17] LABS: Lactate (Lactic Acid level) 1.7 mmol/L (0.5-2.2)
[2020-08-29] MEDS: vancomycin 1,500 MG/300 ML PIGGYBACK 200 MG IV ×2 (11:44→21:41)
--- NOTE | 2020-08-29 11:58 | PM.PN ---
Subjective Subjective: Interval history: Patient seen multiple times during the day today. Has started on Levophed at 2 overnight. Has remained hemodynamically stable. Mean arterial pressures more than 70. Levophed was weaned off. She has remained on Precedex. Once turned off Precedex she became agitated again. Patient had lumbar puncture done today. Has remained afebrile. On 1 L nasal cannula supplementation saturating 97%. Sister at bedside. Vitals/I&O/Wt Last Vital Signs Temp 94.5 F L 08/29/20 03:45 Pulse 71 08/29/20 09:00 Resp 29 H 08/29/20 09:00 BP 103/64 08/29/20 09:00 Pulse Ox 94 08/29/20 09:00 08/28/20 08/29/20 08/29/20 22:59 06:59 14:59 Intake Total 720.573 / 2170.573 1296.545 / 3467.118 1217.135 / 1217.135 Output Total 300 / 300 425 / 725 200 / 200 Balance 420.573 / 1870.573 871.545 / 2742.118 1017.135 / 1017.135 Weight last 48 hrs Weight 118.841 kg Weight 113.534 kg Weight 115.666 kg Physical Exam Narrative: EXAM NARRATIVE: General: Sedated, arousable, incoherent on waking up. On stopping Precedex confused and agitated HEENT: PERRLA, pupils bilaterally equal and reactive Chest: Normal vesicular breath sounds, no added sounds, equal good air entry bilaterally CVS: S1-S2 regular, no murmurs, tachycardia, no gallops, no rubs Abdomen: Soft, nontender, no organomegaly, bowel sounds present Neuro: No focal deficits, no facial deformity, Urinary Catheter Management^: Simeon: Cath Placed During This Visit: yes Reason for Continuing Indwelling Catheter: Accurate Measurement of Urinary Output in Critically Ill Patients Urinary Catheter Date of Insertion: 08/27/20 Urinary Catheter Time of Insertion: 16:04 Data : 08/29/20 09:16 08/29/20 09:16 Micro: Microbiology 08/27/20 01:19 Blood Culture - Preliminary Blood NEGATIVE TO DATE 08/27/20 01:00 Blood Culture - Preliminary Blood NEGATIVE TO DATE 08/27/20 19:30 MRSA Culture - Final Nose 08/27/20 23:18 Bacterial Antigens - Final Urine Kidney Microbiology 08/29/20 09:16 Blood Cryptococcal Antigen - Final 08/28/20 16:00 Urine Random Chlamydia trachomatis (JESSICA) - Final 08/28/20 16:00 Urine Random Neisseria gonorrhoeae (JESSICA) - Final 08/29/20 11:00 Cerebrospinal Fluid Gram Stain - Final 08/29/20 11:00 Cerebrospinal Fluid Bacterial Antigens - Final 08/29/20 11:00 Cerebrospinal Fluid Cryptococcal Antigen - Final 08/27/20 01:19 Blood Blood Culture - Preliminary NEGATIVE TO DATE 08/27/20 01:00 Blood Blood Culture - Preliminary NEGATIVE TO DATE 08/27/20 19:30 Nose MRSA Culture - Final 08/27/20 23:18 Urine Kidney Bacterial Antigens - Final 08/27/20 23:18 Urine Catheterized Legionella Urinary Antigen - Final A&P Assessment and plan (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 Wean off Levophed keeping mean arterial pressure over 65. Altered mental status of unknown cause: Secondary to cryptococcal meningitis. Cryptococcal antigen in blood and CSF positive. Consistent with disseminated cryptococcal infection: Stop ampicillin and acyclovir. For now continue with vancomycin and ceftriaxone. Start patient on AmBisome 2 to 4 mg/kg body weight, fluconazole 800 mg IV. Appreciate ID recommendations. CSF studies appreciated. Other CSF and serum studies pending. We will continue to follow. Continue with normal saline at 75 cc/h. Albumin every 8 hourly. Keep saturation over 92%. Patient is DNR/DNI. Precedex as needed for agitation will monitor for bradycardia. Can use Haldol 0.5 every 4 hours. Continue with Simeon catheterization for strict input output charting. Stool studies awaited. HIV: Given disseminated cryptococcal antigen cannot rule out full-blown AIDS. Will await PCR before starting treatment. CD4 count, genotype, infectious work-up for superadded opportunistic infections. Diarrhea: No bowel movement since admission. Stool studies awaited. For now continue to monitor. Hypertension: Goal blood pressure less than 140/90 emergency with mean over 65. Hold off on antihypertensives for now. Type 2 diabetes mellitus: Insulin sliding scale every 6 hours. N.p.o. for now. Lactic acidosis: Secondary to sepsis, colitis. Continue to monitor. Repeat lactate tomorrow morning. Grade 3 diastolic dysfunction: Monitor for fluid overload. Severely guarded prognosis. CODE STATUS: Discussed CODE STATUS with patient's twin sister who is at bedside Ms. Mehta. She states patient would never wanted to be on mechanical support or any heroic measures. CODE STATUS changed to DNR/DNI. Hold off on Lovenox for possible lumbar puncture tomorrow and low platelet counts today. NPO. Discussed with patient's sister at bedside regarding new diagnosis of HIV. All the questions were answered. Also discussed that given the new diagnosis of HIV, new diagnosis of cryptococcal meningitis patient is severely sick. Also discussed the high mortality rate with cryptococcal infection. Also discussed that patient would need AmBisome and will confirm with pharmacy regarding further doses. We also discussed that if you are not able to get AmBisome for patient we might have to get patient transferred to higher center. Patient sister is agreeable to same and verbalized understanding. All the questions were answered. Continue with ICU care. Attestations Medical Necessity Statement*: Requires further hospitalization for management of altered mental status because of disseminated cryptococcal infection in setting of HIV positive. 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
[2020-08-29 12:03] LABS: CSF Mononuclear # 0.477 10^3/uL (50-90); Mononuclear WBC CSF % 40 % (50-90); Polynuclear Cells ,CSF # 0.716 10^3/uL (0-10); Polynuclear WBC CSF % 60 % (0-10); Red Blood Cell CSF 0 10^3/uL (0-0); White Blood Cell CSF 1193 /uL (0-5)
[2020-08-29 12:14] LABS: Appearance CSF CLEAR (CLEAR); Color CSF XANTHOCROMIC (COLORLESS)
[2020-08-29 12:16] LABS: Glucose CSF 10 mg/dL (40-70)
--- NOTE | 2020-08-29 13:42 | XR_ITS ---
WS: [id number] Portable AP upright chest, 08/29/2020 Clinical Data: PICC Comparison: Portable chest, 08/27/2020. Findings: The right PICC line enters the subclavian vein and ends in the superior vena cava. No pneum othorax is seen. The patient has developed bilateral pulmonary opacities which may represent pneumoni a, pulmonary vascular congestion or atelectasis. The heart is enlarged. There are monitor leads on th e chest wall. XR/XR chest 1V portable [id number] Impression: 1. Satisfactory position of right PICC line. 2. Development of bilateral pulmonary opacities.
[2020-08-29 13:45] LABS: Total Protein CSF > 700 mg/dL (15-45)
--- NOTE | 2020-08-29 15:38 | FL_ITS ---
WS: [id number] LUMBAR PUNCTURE CLINICAL INFORMATION: AMS, HIV positive COMPARISON: None. TECHNIQUE: Informed consent: The procedure and its potential risk and complications were discussed with the lexie ent. Verbal and written consent was obtained. Timeout: A timeout was performed to confirm correct patient, procedure, and site. Patient was prepped and draped in the usual sterile fashion. Lidocaine 1% was used for local anesthes ia. Utilizing fluoroscopic guidance, a 5 inch 22-gauge spinal needle was advanced into the subarachno id space at L4-5 via left oblique sublaminar approach. Free flow of cloudy yellow CSF was obtained. 1 0 cc of CSF was collected and sent the lab for further analysis. FLUOROSCOPIC TIME: 0.3 minutes. FL/FL guided lumbarpunc dx* [id number] IMPRESSION: 1. Fluoroscopically guided lumbar puncture. No immediate complications 2. 10 cc of CLOUDY YELLOW CSF was obtained.
--- NOTE | 2020-08-29 18:23 | P.PN_ITS ---
Subjective Subjective: Interval history: Underwent fluoroscopic LP today, CSF and serum cryptococcal antigens returned positive today. CSF gram stain with budding yeast. CSF glu 10, protein >700, OP from LP N/A. no significant change in mental status today Medications: Reviewed: Yes Vitals/I&O/Wt Last Vital Signs Temp 97.4 F L 08/29/20 16:00 Pulse 62 08/29/20 17:00 Resp 23 H 08/29/20 17:00 BP 112/75 08/29/20 17:00 Pulse Ox 98 08/29/20 17:00 08/29/20 08/29/20 08/29/20 06:59 14:59 22:59 Intake Total 1296.545 / 3467.118 1578.948 / 1578.948 414.285 / 1993.233 Output Total 425 / 725 500 / 500 350 / 850 Balance 871.545 / 2742.118 1078.948 / 1078.948 64.285 / 1143.233 Weight last 48 hrs Weight 118.841 kg Weight 113.534 kg Physical Exam Narrative: EXAM NARRATIVE: GEN: disoriented, lethargic, no gross change management facilitator yesterday's exam CVS: S1S2 N RS: CTA B/L Abd: Soft, nt/nd , bs+ MACHINE TECHNICIAN: no focal motor neuro deficits Urinary Catheter Management^: Simeon: Cath Placed During This Visit: yes Reason for Continuing Indwelling Catheter: Accurate Measurement of Urinary Output in Critically Ill Patients Urinary Catheter Date of Insertion: 08/27/20 Urinary Catheter Time of Insertion: 16:04 Data : 08/29/20 09:16 08/29/20 09:16 Micro: Microbiology 08/29/20 09:16 Cryptococcal Antigen - positive Blood 08/28/20 16:00 Chlamydia trachomatis (JESSICA) - negative Urine Random Neisseria gonorrhoeae (JESSICA) - negative 08/29/20 11:00 Gram Stain - budding yeast Cerebrospinal Fluid 08/29/20 11:00 Bacterial Antigens - negative Cerebrospinal Fluid 08/29/20 11:00 Cryptococcal Antigen - positive Cerebrospinal Fluid 08/27/20 01:19 Blood Culture - Preliminary Blood NEGATIVE TO DATE 08/27/20 01:00 Blood Culture - Preliminary Blood NEGATIVE TO DATE Attestation for Other Data: I personally reviewed and interpreted the following: Other data: CSF analysis CSF Jv CLEAR CLEAR CSF Col XANTHOCROMIC COLORLESS CSF WBC 1193 H 0-5 /uL CSF RBC 0 0-0 10^3/uL CSF [place] WBC % 40 L 50-90 % CSF Poly WBC % 60 H 0-10 % CSF Glu 10 L 40-70 mg/dL CSF TP > 700 H 15-45 mg/d L CSF [place] # 0.477 L 50-90 10^3/uL CSF Poly # 0.716 0-10 10^3/uL Pertinent HIV labs : HIV AG + 08/28 HIV AB: NR 08/28 HIV VL: pending HIV genotype: pending CD4 count: PEnding toxoplasma serology : pending HLA B 5701: pending Quantiferon : pending RPR: negative GC/Chlamydia urine: negative 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 Status: Acute (2) HIV (human immunodeficiency virus infection): Newly diagnosed HIV AG testing +, AB negative on card test, however this is less likely to be acute HIV given presence of an AIDS defining illness Additional history obtained from patients; sister: lifetime one to two partners, no known partner with HIV, not sexually active for many years per her knowledge. 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 No h/o blood transfusion. Patient is never , no children. Currently lives with a female friend who recently moved in to take care of patient and her young child. Patient had been reporting generalized weakness, diarrhea, feeling unwell for about 1-2 months, no recent weight losss, no fever, no cough, no headache or visual disturbances. 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 No hydrocephaluss or mass lesions noted on CT currently. Start patient an ambisome 4mg/kg iv q24h + fluconazole 800mg iv qd (Flucytosine N/A) for induction therapy for at least the next two weeks which will be followed by consolidation and maintainenece. rpt LP at 2 weeks, sooner if signs of intracranial HTN monitor kidney function and qtc interval closely while on above regimen d/c ceftraixone, vancomycin, ampicillin and acyclovir Status: Acute (5) Colitis: currently no diarrhea Status: Acute (6) Liver cirrhosis: hepatitis screen negative Status: Acute Qualifiers: Hepatic cirrhosis type: unspecified hepatic cirrhosis Ascites presence: without ascites Qualified Code(s): K74.60 - Unspecified cirrhosis of liver Attestations Medical Necessity Statement*: disseminated cryptococcal infection, needs iv antifungal treatment, close neurological monitoring Critical Care Time: The high probability of a clinically significant, sudden or life threatening deterioration of the patient's [neurologicall l,immune,infected] system(s) required my full and direct attention, intervention and personal management. The critical care time is as shown. 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
[2020-08-29 18:42] LABS: Glucose Point of Care 241 mg/dL (70-110)
[2020-08-29] MEDS: lactulose oral liq 20 gm/30 mL UDC PR (21:41)
[2020-08-29 21:50] LABS: Glucose Point of Care 210 mg/dL (70-110)
[2020-08-30] VITALS (57 sets, daily range): BP systolic 81–121; BP diastolic 43–73; PULSE 59–73; RESP 16–36; TEMP 35.5–36.8; O2SAT 91–100
[2020-08-30] MEDS: ipratropium-albuterol 3 mL Neb INHALATION ×4 (02:55→20:28)
[2020-08-30 02:56] LABS: Glucose Point of Care 215 mg/dL (70-110)
[2020-08-30] MEDS: lactulose oral liq 20 gm/30 mL UDC PR ×2 (02:58→08:12)
--- NOTE | 2020-08-30 03:45 | PC.NURSE ---
During bath, pt more awake. Nurse assessing orientation. Pt was able to verbalize her [birth year] was in [birth year] . Pt has spoke very little this evening and is starting to moan and yell out more. The little speech she does say is confused .
[2020-08-30] MEDS: famotidine 20 mg/2 mL INJ IVP ×2 (03:53→15:39)
[2020-08-30] MEDS: dexmedetomidine 400 MCG in sodium chloride 0.9% (100 ml) 100 ML 10.3 MCG IV (03:53)
[2020-08-30 04:59] LABS: Basophils % 0.7 %; Eosinophils # 0.1 10^3/uL (0.0-0.8); Eosinophils % 0.9 %; Hematocrit 32.1 % (37.0-47.0); Hemoglobin 10.3 g/dL (11.5-15.3); Lymphocytes # 0.6 10^3/uL (0.8-4.8); Lymphocytes % 10.2 %; Mean Corpuscular HGB Conc 32.1 g/dL (30.0-36.0); Mean Corpuscular Hemoglobin 34.8 pg (28.0-34.0); Mean Corpuscular Volume 108.4 fL (81-99); Mean Platelet Volume 10.5 fL (7.4-10.4); Monocytes # 0.5 10^3/uL (0.2-0.9); Monocytes % 9.3 %; Neutrophils # 4.46 10^3/uL (1.8-7.7); Neutrophils % 78.4 %; Nucleated Red Blood Cells % 0 %; Platelet Count 92 10^3/cmm (130-400); Red Blood Count 2.96 10^6/uL (4.1-5.3); Red Cell Distribution Width 17.6 % (12.1-15.1); White Blood Count 5.7 10^3/uL (4.0-10.0)
[2020-08-30 06:16] LABS: Glucose Point of Care 184 mg/dL (70-110)
[2020-08-30 06:28] LABS: Alanine Aminotransferase 13 U/L (0-33); Albumin Level 2.1 g/dL (3.5-5.2); Alkaline Phosphatase 51 IU/L (35-105); Blood Urea Nitrogen 16 mg/dL (8-23); Calcium 6.8 mg/dL (8.5-10.5); Carbon Dioxide 22 mmol/L (22-29); Chloride 111 mmol/L (98-107); Globulin 2.9 g/dL (1.3-4.6); Glomerular Filtration Rate 161.2 mL/min (90-130); Glucose 181 mg/dL (65-115); Osmolality Calculated 298 mOsm/kg (285-295); Sodium 141 mmol/L (136-145); Total Bilirubin 2.3 mg/dL (0.15-1.2)
[2020-08-30 06:29] LABS: Anion Gap 12.4 (5-19); Aspartate Amino Transferase 30 U/L (0-32); Potassium 4.4 mmol/L (3.5-5.1)
--- NOTE | 2020-08-30 08:00 | PC.SOCIAL ---
*IMM NOT GIVEN* Patient not expected to discharge in the next 48 hrs. Burglar Alarm Operator did not give IMM update.
[2020-08-30 08:02] LABS: Glucose Point of Care 175 mg/dL (70-110)
[2020-08-30] MEDS: nystatin powder 15 gm Btl 1 APPLIC TOPICAL ×2 (08:12→17:27)
[2020-08-30] MEDS: gabapentin 100 mg Capsule PO (08:12)
[2020-08-30] MEDS: sodium chloride 0.9% 1,000 ML 100 ML IV ×2 (08:21→18:36)
[2020-08-30] MEDS: budesonide 0.5 mg/2 mL Neb INHALATION ×2 (08:24→20:28)
--- NOTE | 2020-08-30 08:52 | PM.PN ---
Subjective Subjective: Interval history: No acute events overnight. Patient was weaned off from Precedex early in the morning. Patient is mostly drowsy and sleepy during examination but wakes up in between 2 has some coherent talks as reported by the RN and sister at bedside. As per the RN patient was able to tell him her name today. Patient has been off pressors for more than 24 hours now. Hypothermic overnight for which she required Karen hugger. Patient has remained hemodynamically stable and afebrile overnight. Lab work and hemodynamics appreciated. Medications: Reviewed: Yes Vitals/I&O/Wt Last Vital Signs Temp 97.3 F L 08/30/20 08:00 Pulse 69 08/30/20 08:40 Resp 24 H 08/30/20 08:30 BP 114/66 08/30/20 08:30 Pulse Ox 99 08/30/20 08:30 08/29/20 08/30/20 08/30/20 22:59 06:59 14:59 Intake Total 1841.380 / 3420.328 376.905 / 3797.233 1046.178 / 1046.178 Output Total 350 / 850 425 / 1275 Balance 1491.380 / 2570.328 -48.095 / 2522.233 1046.178 / 1046.178 Weight last 48 hrs Weight 120.973 kg Weight 118.841 kg Physical Exam Narrative: EXAM NARRATIVE: General: Sedated, arousable, incoherent on waking up. On stopping Precedex confused and agitated HEENT: PERRLA, pupils bilaterally equal and reactive Chest: Normal vesicular breath sounds, no added sounds, equal good air entry bilaterally CVS: S1-S2 regular, no murmurs, tachycardia, no gallops, no rubs Abdomen: Soft, nontender, no organomegaly, bowel sounds present Neuro: No focal deficits, no facial deformity, Urinary Catheter Management^: Simeon: Cath Placed During This Visit: yes Reason for Continuing Indwelling Catheter: Accurate Measurement of Urinary Output in Critically Ill Patients Urinary Catheter Date of Insertion: 08/27/20 Urinary Catheter Time of Insertion: 16:04 Data : 08/30/20 04:15 08/30/20 05:55 Micro: Microbiology 08/29/20 09:16 Cryptococcal Antigen - Final Blood 08/28/20 16:00 Chlamydia trachomatis (JESSICA) - Final Urine Random Neisseria gonorrhoeae (JESSICA) - Final 08/29/20 11:00 Gram Stain - Final Cerebrospinal Fluid 08/29/20 11:00 Bacterial Antigens - Final Cerebrospinal Fluid 08/29/20 11:00 Cryptococcal Antigen - Final Cerebrospinal Fluid Laboratory Results WBC 5.7 10^3/uL (4.0-10.0) 08/30/20 04:15 RBC 2.96 10^6/uL (4.1-5.3) L 08/30/20 04:15 Hgb 10.3 g/dL (11.5-15.3) L 08/30/20 04:15 Hct 32.1 % (37.0-47.0) L 08/30/20 04:15 MCV 108.4 fL (81-99) H 08/30/20 04:15 MCH 34.8 pg (28.0-34.0) H 08/30/20 04:15 MCHC 32.1 g/dL (30.0-36.0) 08/30/20 04:15 RDW 17.6 % (12.1-15.1) H 08/30/20 04:15 Plt Count 92 10^3/cmm (130-400) L 08/30/20 04:15 MPV 10.5 fL (7.4-10.4) H 08/30/20 04:15 Neut % (Auto) 78.4 % 08/30/20 04:15 Lymph % (Auto) 10.2 % 08/30/20 04:15 [place] % (Auto) 9.3 % 08/30/20 04:15 Eos % (Auto) 0.9 % 08/30/20 04:15 Baso % (Auto) 0.7 % 08/30/20 04:15 Neut # (Auto) 4.46 10^3/uL (1.8-7.7) 08/30/20 04:15 Lymph # (Auto) 0.6 10^3/uL (0.8-4.8) L 08/30/20 04:15 [place] # (Auto) 0.5 10^3/uL (0.2-0.9) 08/30/20 04:15 Eos # (Auto) 0.1 10^3/uL (0.0-0.8) 08/30/20 04:15 Baso # (Auto) 0.0 10^3/uL (0.0-0.1) 08/30/20 04:15 Nucleated RBC % (auto) 0 % 08/30/20 04:15 Nucleated RBCs # 0.0 /100WBC 08/30/20 04:15 PT 19.20 SECONDS (12.1-14.9) H 08/28/20 22:25 INR 1.58 (0.8-1.2) H 08/28/20 22:25 APTT 40.1 SECONDS (23.9-36.7) H 08/28/20 22:25 Fibrinogen 204 mg/dL (174-498) 08/28/20 22:25 Fibrin Degrad Products Pos, 10-40 ug/mL (NEG) H 08/28/20 22:25 D-Dimer 3.57 ug/mIFEU (0-0.59) H 08/28/20 22:25 Specimen Type Arterial 08/27/20 11:46 Sample Site Radial, left 08/27/20 11:46 ABG pH 7.55 (7.35-7.45) H 08/27/20 11:46 ABG pCO2 35.4 mmHg (35-45) 08/27/20 11:46 ABG pO2 67.4 mmHg (80.0-100.0) L 08/27/20 11:46 ABG HCO3 30.9 mmol/L (22-26) H 08/27/20 11:46 ABG O2 Saturation 96.1 08/27/20 11:46 ABG Base Excess 8.2 mmol/L (-2.0-2.0) H 08/27/20 11:46 Caio Test Pos 08/27/20 11:46 A-a O2 Gradient 4.9 mmHg (5-10) L 08/27/20 11:46 Hematocrit 39.5 % (37-47) 08/27/20 11:46 Hgb O2 Saturation 94.1 % (95-100) L 08/27/20 11:46 Carboxyhemoglobin 1.9 %THgb (0.4-20.1) 08/27/20 11:46 Methemoglobin 0.1 % (0.4-1.5) L 08/27/20 11:46 Total Hemoglobin 12.9 g/dL (12-16) 08/27/20 11:46 Sodium 133.0 mmol/L (131-143) 08/27/20 11:46 Potassium 3.4 mmol/L (3.5-5.0) L 08/27/20 11:46 Glucose 250.0 mg/dL (70-115) H 08/27/20 11:46 Ionized Calcium 1.1 mmol/L (1.1-1.4) 08/27/20 11:46 O2 Delivery Device Room air 08/27/20 11:46 FiO2 21.0 % 08/27/20 11:46 [employer] Impregnating Range Tender ID Ed 08/27/20 11:46 Sodium 141 mmol/L (136-145) 08/30/20 05:55 Potassium 4.4 mmol/L (3.5-5.1) 08/30/20 05:55 Chloride 111 mmol/L (98-107) H 08/30/20 05:55 Carbon Dioxide 22 mmol/L (22-29) 08/30/20 05:55 Anion Gap 12.4 (5-19) 08/30/20 05:55 BUN 16 mg/dL (8-23) 08/30/20 05:55 Creatinine 0.4 mg/dL (0.5-0.9) L 08/30/20 05:55 GFR Calculation 161.2 mL/min (90-130) H 08/30/20 05:55 Glucose 181 mg/dL (65-115) H 08/30/20 05:55 POC Glucose 159 mg/dL (70-110) H 08/30/20 14:28 Estimat Average Glucose 146 08/28/20 01:19 Hemoglobin A1c 6.7 % (4.0-6.0) H 08/28/20 01:19 Calculated Osmolality 298 mOsm/kg (285-295) H 08/30/20 05:55 Lactic Acid 2.3 mmol/L (0.5-2.2) H 08/27/20 19:02 Lactic Acid (Sepsis) 1.2 mmol/L (0.5-2.2) 08/28/20 01:19 Lactate 1.7 mmol/L (0.5-2.2) 08/29/20 09:16 Calcium 6.8 mg/dL (8.5-10.5) L 08/30/20 05:55 Phosphorus 3.8 mg/dL (2.5-4.5) 08/28/20 01:19 Magnesium 2.0 mg/dL (1.7-2.3) 08/28/20 01:19 Iron 107 ug/dL (37-145) 08/27/20 12:40 TIBC 123.04773 mcg/dl 08/27/20 12:40 % Saturation 86.0 % (20-50) H 08/27/20 12:40 Unsat Iron Binding < 17 ug/dL (112-347) L 08/27/20 12:40 Ferritin 608 ng/mL (15-150) H 08/28/20 01:19 Total Bilirubin 2.3 mg/dL (0.15-1.2) H 08/30/20 05:55 Direct Bilirubin 1.40 mg/dL (0.00-0.30) H 08/28/20 01:19 Indirect Bilirubin Cancelled 08/28/20 01:19 AST 30 U/L (0-32) 08/30/20 05:55 ALT 13 U/L (0-33) 08/30/20 05:55 Alkaline Phosphatase 51 IU/L (35-105) 08/30/20 05:55 Ammonia 38 umol/L (11-51) 08/27/20 12:40 Creatine Kinase 198 U/L (26-192) H 08/28/20 01:19 C-Reactive Protein 55.7 mg/L (0.0-4.9) H 08/27/20 12:40 NT-Pro-B Natriuret Pep 516 pg/mL (0-125) H 08/27/20 12:40 Total Protein 5.0 g/dL (6.6-8.7) L 08/30/20 05:55 Albumin 2.1 g/dL (3.5-5.2) L 08/30/20 05:55 Globulin 2.9 g/dL (1.3-4.6) 08/30/20 05:55 Lipase 23 U/L (13-60) 08/27/20 12:40 Vitamin B12 479 pg/mL (232-1245) 08/28/20 01:19 Folate 7.2 ng/mL (4.8-37.3) 08/28/20 01:19 Procalcitonin 0.47 ng/mL (0-0.5) 08/29/20 09:16 TSH 2.21 uIU/mL (0.27-4.20) 08/27/20 12:40 Urine Color Dark yellow (Yellow) 08/27/20 12:32 Urine Appearance Hazy (CLEAR) A 08/27/20 12:32 Urine pH 5 (5-7) 08/27/20 12:32 Ur Specific [place] 1.020 (1.005-1.030) 08/27/20 12:32 Urine Protein Neg (Negative) 08/27/20 12:32 Urine Glucose (UA) Trace (Normal) H 08/27/20 12:32 Urine Ketones Negative (Negative) 08/27/20 12:32 Urine Blood Neg (Negative) 08/27/20 12:32 Urine Nitrate Negative (Negative) 08/27/20 12:32 Urine Bilirubin 1+ (Negative) H 08/27/20 12:32 Urine Urobilinogen 12 mg/dL (Negative) H 08/27/20 12:32 Ur Leukocyte Esterase Negative (Negative) 08/27/20 12:32 Urine RBC 0-4 /hpf (0-2) H 08/27/20 12:32 Urine WBC None /hpf (0-5) 08/27/20 12:32 Ur Squamous Epith Cells 10-15 /hpf (0-5) H 08/27/20 12:32 Amorphous Sediment Not Reportable 08/27/20 12:32 Urine Bacteria 1+ /hpf (NONE) H 08/27/20 12:32 Urine Mucus 3+ /hpf 08/27/20 12:32 Ur Random Sodium 45 mmol/L 08/27/20 12:32 Ur Random Potassium 26 mmol/L 08/27/20 12:32 Ur Random Chloride 44 mmol/L 08/27/20 12:32 CSF Appearance Clear (CLEAR) 08/29/20 11:00 CSF Color Xanthocromic (COLORLESS) 08/29/20 11:00 CSF WBC 1193 /uL (0-5) H 08/29/20 11:00 CSF RBC 0 10^3/uL (0-0) 08/29/20 11:00 CSF Mononuclear # Auto 0.477 10^3/uL (50-90) L 08/29/20 11:00 CSF Mononuclear WBCs % 40 % (50-90) L 08/29/20 11:00 CSF Polynuclear WBCs # 0.716 10^3/uL (0-10) 08/29/20 11:00 CSF Polynuclear WBCs % 60 % (0-10) H 08/29/20 11:00 CSF Glucose 10 mg/dL (40-70) L 08/29/20 11:00 CSF Total Protein > 700 mg/dL (15-45) H 08/29/20 11:00 Vancomycin Trough 17.2 ug/mL (10-15) H 08/29/20 09:16 Salicylates < 0.3 mg/dL (3-10) L 08/27/20 19:02 Urine Opiates Screen Negative ng/mL (Negative) 08/27/20 12:32 Acetaminophen < 5.0 ug/mL (10-30) L 08/27/20 19:02 Ur Barbiturates Screen Negative ng/mL (Negative) 08/27/20 12:32 Ur Phencyclidine Scrn Negative ng/mL (Negative) 08/27/20 12:32 Ur Amphetamines Screen Negative ng/mL (Negative) 08/27/20 12:32 U Benzodiazepines Scrn Negative ng/mL (Negative) 08/27/20 12:32 Urine Cocaine Screen Negative ng/mL (Negative) 08/27/20 12:32 U Marijuana (THC) Screen Negative ng/mL (Negative) 08/27/20 12:32 Ethyl Alcohol < 10 mg/dL (0-10) 08/27/20 19:02 Serum Ketones Negative (Negative) 08/27/20 19:02 RPR Cancelled 08/29/20 10:59 Lyme Ab (Western Blot) <0.90 index 08/28/20 01:19 Hepatitis A IgM Ab Non-reactive (Nonreactive) 08/28/20 01:19 Hep Bs Antigen Non-reactive (Nonreactive) 08/28/20 01:19 Hep Bs Antibody 26.9 (11.5-1000) 08/28/20 01:19 Hep B Core Total Ab Non-reactive (Nonreactive) 08/28/20 01:19 Hepatitis C Antibody Non-reactive (Nonreactive) 08/28/20 01:19 HIV-1 RNA copies/mL <1.30 not detected (NOT DETECTED) 08/29/20 09:16 HIV-1 RNA (PCR) log10 <20 not detected copies/mL (NOT DETECTED) 08/29/20 09:16 HIV 1&2 Ab & HIV 1 Ag Reactive (Non-Reactiv) H 08/28/20 01:19 HIV 1&2 Antibody Non-reactive (Non-Reactiv) 08/28/20 01:19 Influenza Type A Ag Negative (Negative) 08/27/20 23:18 Influenza Type B Ag Negative (Negative) 08/27/20 23:18 TB (QFT) Gold In Tube Cancelled 08/30/20 04:00 TB Test (QFT) Nil Cancelled 08/30/20 04:00 TB Test (QFT) Mitogen Cancelled 08/30/20 04:00 TB Test Mitogen - Nil Cancelled 08/30/20 04:00 TB Test TB - Nil Cancelled 08/30/20 04:00 Misc Test Reference Cancelled 08/29/20 09:[address] 08/27/20 11:28 IMPRESSION: 1. No evidence of intracranial hemorrhage or mass effect. 2. Mild small vessel changes. Moderate parenchymal volume loss. 3. No acute intracranial findings. Abdomen/Pelvis CT 08/27/20 14:08 IMPRESSION: 1. Right ascending colon colonic thickening with induration and inflammatory stranding extending into the proximal transverse colon consistent with infectious or inflammatory colitis. 2. Cirrhotic liver with small amount of perihepatic ascites. Splenomegaly. 3. Diffuse endometrial thickening measuring 12 mm abnormal in a postmenopausal patient and suspicious for hyperplasia versus neoplasia. Recommend follow-up with hysteroscopy. 4. Simeon catheter. 5. Mild abdominal and pelvic ascites 6. Sigmoid diverticulosis. No evidence of acute diverticulitis. 7. Fat-containing umbilical hernia. Chest X-Ray 08/29/20 13:42 Impression: 1. Satisfactory position of right PICC line. 2. Development of bilateral pulmonary opacities. Lumbar Puncture Fluoroscopy 08/29/20 15:38 IMPRESSION: 1. Fluoroscopically guided lumbar puncture. No immediate complications 2. 10 cc of CLOUDY YELLOW CSF was obtained. 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 Status: Acute (2) HIV (human immunodeficiency virus infection): Pertinent HIV labs : HIV AG + 08/28 HIV AB: NR 08/28 HIV VL: pending HIV genotype: pending CD4 count: PEnding toxoplasma serology : pending HLA B 5701: pending Quantiferon : pending RPR: negative GC/Chlamydia urine: negative Will defer starting ART for at least the next 8-10 weeks to minimize risk of IRIS and clinical worsening Based on CD4 count, will likely need bactrim and azithromycin ppx Status: Acute Qualifiers: HIV symptom status: symptomatic Qualified Code(s): B20 - Human immunodeficiency virus [HIV] disease (3) 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 Wean off Levophed keeping mean arterial pressure over 65. Altered mental status of unknown cause: Secondary to cryptococcal meningitis. Cryptococcal antigen in blood and CSF positive. Consistent with disseminated cryptococcal infection: Continue with AmBisome and fluconazole at current dose. Patient has received vancomycin and ceftriaxone for 4 days. Chances of bacterial infection very low. We will stop antibiotics as per ID recommendations. CSF studies appreciated. Other CSF and serum studies pending. We will continue to follow. Continue with normal saline at 75 cc/h. Albumin every 8 hourly. Patient's hemodynamics better. IV Lasix 20 mg stat. Continue to monitor intake and output strictly. Keep saturation over 92%. Patient is DNR/DNI. Precedex as needed for agitation. Continue with Simeon catheterization for strict input output charting. Stool studie appreciated. HIV: HIV antigen positive but PCR negative. ? False positive antigen. Given disseminated cryptococcus patient is definitely immunosuppressed. CD4 count, genotype, infectious work-up still pending. For further evaluation we will follow ID recommendations. Hypertension: Goal blood pressure less than 140/90 emergency with mean over 65. Hold off on antihypertensives for now. Type 2 diabetes mellitus: Insulin sliding scale every 6 hours. N.p.o. for now. Lactic acidosis: Secondary to sepsis, colitis. Continue to monitor. Repeat lactate tomorrow morning. Grade 3 diastolic dysfunction: Monitor for fluid overload. Severely guarded prognosis. CODE STATUS: Discussed CODE STATUS with patient's twin sister who is at bedside Ms. Mehta. She states patient would never wanted to be on mechanical support or any heroic measures. CODE STATUS changed to DNR/DNI. We will start patient on heparin 5000 q. 8. Patient platelet count still low but more than 40,000. We will continue to monitor for bleeding. NPO. If patient continues to remain unresponsive most likely will do an NG tube and start on NG tube feeds within next 24 hours. Discussed with patient's sister at bedside regarding new developments with negative HIV PCR. We did discuss that given the disseminated cryptococcus patient is definitely immunocompromised but at this stage is not really sure if patient has HIV or not though given the immunocompromise status we will treat her as HIV. We also stated that patient requires further testing which will be sent out including HIV RNA type II. Patient sister is understandable. We also discussed even if she is HIV negative patient is critically sick because of Venkata cryptococcus and a severely guarded prognosis for now. We also discussed that for now we have AmBisome till the weekend and we are trying to arrange for more medications but if not possible then we will have to transfer patient to a higher center. Patient sister verbalized understanding. Continue with ICU care. Attestations Medical Necessity Statement*: Requires further hospitalization for management of sepsis, altered mental status, disseminated cryptococcus. 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
[2020-08-30] MEDS: vancomycin 1,500 MG/300 ML PIGGYBACK 200 MG IV (09:07)
[2020-08-30] MEDS: FUROsemide 10 mg/mL SDV 2mL 20 MG IVP (09:07)
[2020-08-30 13:08] LABS: Lyme AB Screen <0.90 index
[2020-08-30 13:38] LABS: HIV RNA (CPY/ML) <1.30 NOT DETECTED (NOT DETECTED); HIV RNA LOG <20 NOT DETECTED copies/mL (NOT DETECTED)
[2020-08-30 14:32] LABS: Glucose Point of Care 159 mg/dL (70-110)
[2020-08-30] MEDS: cefTRIAXone 2,000 MG in sodium chloride 0.9% (plus) 50 ML 100 MG IV (16:34)
[2020-08-30] MEDS: heparin 5,000 unit/mL INJ 1 mL 5000 UNIT SUBCUT (19:25)
--- NOTE | 2020-08-30 19:45 | PM.PN ---
Subjective Subjective: Interval history: Infectious disease progress note. Patient continues to be confused, lethargic. However per sister, she called her by the correct name today. Said I love you. When her half brother was at bedside earlier she commented to the sister get the boys out of the room . Medications: Reviewed: Yes Vitals/I&O/Wt Last Vital Signs Temp 97.3 F L 08/30/20 12:08 Pulse 71 08/30/20 18:31 Resp 32 H 08/30/20 18:31 BP 111/64 08/30/20 18:31 Pulse Ox 97 08/30/20 18:00 08/30/20 08/30/20 08/30/20 06:59 14:59 22:59 Intake Total 376.905 / 3797.233 1446.178 / 5882.146 9058.753 / 3295.931 Output Total 425 / 1275 400 / 400 Balance -48.095 / 2522.233 1446.178 / 6178.477 1905.753 / 2895.931 Weight last 48 hrs Weight 120.973 kg Weight 118.841 kg Physical Exam Narrative: EXAM NARRATIVE: GEN: disoriented, lethargic, speaks few legible words today CVS: S1S2 N RS: CTA B/L Abd: Soft, nt/nd , bs+ MISSILE CONTROL PILOT: no focal motor neuro deficits PICC line inserted 08/29 Urinary Catheter Management^: Simeon: Cath Placed During This Visit: yes Reason for Continuing Indwelling Catheter: Accurate Measurement of Urinary Output in Critically Ill Patients Urinary Catheter Date of Insertion: 08/27/20 Urinary Catheter Time of Insertion: 16:04 Data : 08/30/20 04:15 08/30/20 05:55 Micro: Microbiology 08/29/20 11:00 Mycobacterial Smear - Preliminary Cerebrospinal Fluid 08/30/20 11:57 Stool Lactoferrin - Final Stool Enteric Pathogens (PCR) - Final Parasite Antigen Panel - Final Occult Blood (FIT) - Final 08/30/20 11:57 C.difficile Toxin B Gene (PCR) - Final Stool 08/29/20 09:16 Cryptococcal Antigen - Final Blood 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 HIV antigen testing was repeated and once again resulted with a positive antigen test and negative Ab. This test appear quite discordant. A positive antigen test with negative antibody testing would be more indicative of acute HIV infection. However the presence of disseminated cryptococcus infection is against the diagnosis of acute HIV and more likely commercial representative of AIDS/late stages. Patient has no other underlying immunocompromising condition. Moreover, HIV-1 RNA additionally would expected to be positive even in an acute HIV infection even if at low numbers. Possible explanation for this discordant test results could be: 1. False positive Alere HIV test. Will send out repeat on instrumented platform. 2.Acute HIV 3.False negative PCR test... will obtain repeat testing on different assay and/or test for pro viral DNA. 4. 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 No hydrocephaluss or mass lesions noted on CT currently. Started patient an ambisome 4mg/kg iv q24h + fluconazole 800mg iv qd (Flucytosine N/A) for induction therapy for at least the next two weeks which will be followed by consolidation and maintainenece. rpt LP at 2 weeks, sooner if signs of intracranial HTN monitor kidney function and qtc interval closely while on above regimen d/c ceftraixone, vancomycin as findings c/w cryptococcal meningitis Status: Acute (5) Colitis: currently no diarrhea Status: Acute (6) Liver cirrhosis: hepatitis screen negative Status: Acute Qualifiers: Hepatic cirrhosis type: unspecified hepatic cirrhosis Ascites presence: without ascites Qualified Code(s): K74.60 - Unspecified cirrhosis of liver Attestations Medical Necessity Statement*: disseminated cryptococcal disease, needs iv antifungal treatment , await CSF sterilization Critical Care Time: The high probability of a clinically significant, sudden or life threatening deterioration of the patient's [neuro,immune ] system(s) required my full and direct attention, intervention and personal management. The critical care time is as shown. 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
[2020-08-30 20:46] LABS: Glucose Point of Care 150 mg/dL (70-110)
[2020-08-31] VITALS (52 sets, daily range): BP systolic 86–152; BP diastolic 42–96; PULSE 64–97; RESP 16–45; TEMP 36.1–36.6; O2SAT 79–96
[2020-08-31] MEDS: ipratropium-albuterol 3 mL Neb INHALATION ×4 (02:15→20:10)
[2020-08-31] MEDS: famotidine 20 mg/2 mL INJ IVP ×2 (03:43→16:40)
[2020-08-31 03:45] LABS: Glucose Point of Care 133 mg/dL (70-110)
[2020-08-31 05:50] LABS: Basophils % 0.7 %; Eosinophils # 0.1 10^3/uL (0.0-0.8); Eosinophils % 1.6 %; Hemoglobin 9.4 g/dL (11.5-15.3); Lymphocytes % 18.8 %; Mean Corpuscular HGB Conc 32.4 g/dL (30.0-36.0); Mean Corpuscular Hemoglobin 35.1 pg (28.0-34.0); Mean Corpuscular Volume 108.2 fL (81-99); Mean Platelet Volume 10.5 fL (7.4-10.4); Monocytes # 0.6 10^3/uL (0.2-0.9); Monocytes % 10.8 %; Neutrophils # 3.72 10^3/uL (1.8-7.7); Neutrophils % 67.2 %; Nucleated Red Blood Cells % 0 %; Platelet Count 103 10^3/cmm (130-400); Red Blood Count 2.68 10^6/uL (4.1-5.3); Red Cell Distribution Width 18.9 % (12.1-15.1); White Blood Count 5.5 10^3/uL (4.0-10.0)
[2020-08-31] MEDS: sodium chloride 0.9% 1,000 ML 100 ML IV (06:53)
[2020-08-31 06:56] LABS: Alanine Aminotransferase 16 U/L (0-33); Albumin Level 2.9 g/dL (3.5-5.2); Alkaline Phosphatase 44 IU/L (35-105); Blood Urea Nitrogen 23 mg/dL (8-23); Calcium 7.9 mg/dL (8.5-10.5); Carbon Dioxide 20 mmol/L (22-29); Chloride 108 mmol/L (98-107); Globulin 2.6 g/dL (1.3-4.6); Glomerular Filtration Rate 63.2 mL/min (90-130); Glucose 153 mg/dL (65-115); Osmolality Calculated 301 mOsm/kg (285-295); Sodium 142 mmol/L (136-145); Total Bilirubin 2.3 mg/dL (0.15-1.2); Total Protein 5.5 g/dL (6.6-8.7)
[2020-08-31 06:57] LABS: Aspartate Amino Transferase 38 U/L (0-32)
[2020-08-31 06:58] LABS: Anion Gap 18.6 (5-19); Potassium 4.6 mmol/L (3.5-5.1)
[2020-08-31] MEDS: budesonide 0.5 mg/2 mL Neb INHALATION ×2 (07:50→20:10)
[2020-08-31 08:16] LABS: Glucose Point of Care 144 mg/dL (70-110)
[2020-08-31] MEDS: heparin 5,000 unit/mL INJ 1 mL 5000 UNIT SUBCUT ×2 (08:39→16:40)
[2020-08-31] MEDS: nystatin powder 15 gm Btl 1 APPLIC TOPICAL ×2 (08:39→17:34)
--- NOTE | 2020-08-31 12:29 | ECG_ITS ---
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 Measurements Intervals [place] Rate: 96 P: 74 GA: 177 QRS: 73 QRSD: 94 T: 68 QT: 383 QTc: 485 Interpretive Statements SINUS RHYTHM NONSPECIFIC T-WAVE ABNORMALITY Compared to ECG 08/05/2017 07:32:50 T-wave abnormality now present Electronically Signed On 08-31-2020 16:49:57 CDT by Kilo Little M.D. [id number]
--- NOTE | 2020-08-31 13:15 | PM.PN ---
Subjective Subjective: Interval history: No acute events overnight. Patient is a lot more awake today on examination she was able to tell me the date and her name. Both she not really sure why she is in the hospital. On asking if she is hungry she states she does not think so and thinks she ate food yesterday. Denies any nausea or vomiting. Has remained hemodynamically stable and afebrile overnight. Did have episodes of hypothermia once of bear hugger. Documented urine output in last 24 hours 900 cc. Medications: Reviewed: Yes Vitals/I&O/Wt Last Vital Signs Temp 97 F L 08/31/20 08:00 Pulse 84 08/31/20 12:00 Resp 35 H 08/31/20 12:00 BP 107/63 08/31/20 12:00 Pulse Ox 92 08/31/20 12:00 08/30/20 08/31/20 08/31/20 22:59 06:59 14:59 Intake Total 1849.753 / 3295.931 1100 / 4395.931 500 / 500 Output Total 500 / 500 150 / 650 250 / 250 Balance 1349.753 / 2795.931 950 / 3745.931 250 / 250 Weight last 48 hrs Weight 121.971 kg Weight 120.973 kg Physical Exam Narrative: EXAM NARRATIVE: General: Awake, alert to self and date. Moving all 4 limbs., Parched oral cavity HEENT: PERRLA, pupils bilaterally equal and reactive Chest: Normal vesicular breath sounds, no added sounds, equal good air entry bilaterally CVS: S1-S2 regular, no murmurs, tachycardia, no gallops, no rubs Abdomen: Soft, nontender, no organomegaly, bowel sounds present Neuro: No focal deficits, no facial deformity, Urinary Catheter Management^: Simeon: Cath Placed During This Visit: yes Reason for Continuing Indwelling Catheter: Accurate Measurement of Urinary Output in Critically Ill Patients Urinary Catheter Date of Insertion: 08/27/20 Urinary Catheter Time of Insertion: 16:04 Data : 08/31/20 05:15 08/31/20 05:15 Micro: Microbiology 08/27/20 01:19 Blood Culture - Preliminary Blood 08/29/20 11:00 Mycobacterial Smear - Preliminary Cerebrospinal Fluid 08/30/20 11:57 Stool Lactoferrin - Final Stool Enteric Pathogens (PCR) - Final Parasite Antigen Panel - Final Occult Blood (FIT) - Final 08/30/20 11:57 C.difficile Toxin B Gene (PCR) - Final Stool Microbiology 08/27/20 01:19 Blood Blood Culture - Preliminary 08/29/20 11:00 Cerebrospinal Fluid Mycobacterial Smear - Preliminary 08/30/20 11:57 Stool Stool Lactoferrin - Final 08/30/20 11:57 Stool Enteric Pathogens (PCR) - Final 08/30/20 11:57 Stool Parasite Antigen Panel - Final 08/30/20 11:57 Stool Occult Blood (FIT) - Final 08/30/20 11:57 Stool C.difficile Toxin B Gene (PCR) - Final 08/29/20 09:16 Blood Cryptococcal Antigen - Final?positive 08/28/20 16:00 Urine Random Chlamydia trachomatis (JESSICA) - Final 08/28/20 16:00 Urine Random Neisseria gonorrhoeae (JESSICA) - Final 08/29/20 11:00 Cerebrospinal Fluid Gram Stain - Final 08/29/20 11:00 Cerebrospinal Fluid Bacterial Antigens - Final 08/29/20 11:00 Cerebrospinal Fluid Cryptococcal Antigen - Final?positive. 08/27/20 01:00 Blood Blood Culture - Preliminary NEGATIVE TO DATE 08/27/20 19:30 Nose MRSA Culture - Final 08/27/20 23:18 Urine Kidney Bacterial Antigens - Final 08/27/20 23:18 Urine Catheterized Legionella Urinary Antigen - Final 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 HIV antigen testing was repeated and once again on 08/30 resulted with a positive antigen test and negative Ab. This test appear quite discordant. A positive antigen test with negative antibody testing would be more indicative of acute HIV infection. However the presence of disseminated cryptococcus infection is against the diagnosis of acute HIV and more likely promotional representative of AIDS/late stages. Patient has no other underlying immunocompromising condition. Moreover, HIV-1 RNA additionally would expected to be positive even in an acute HIV infection even if at low numbers. Possible explanation for this discordant test results could be: 1. False positive Alere HIV test. Will send out repeat on instrumented platform. 2.Acute HIV 3.False negative PCR test... will obtain repeat testing on different assay and/or test for pro viral DNA. 4. 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 Will defer starting ART until HIV infection can be proven conclusively Status: Acute Qualifiers: HIV symptom status: symptomatic Qualified Code(s): B20 - Human immunodeficiency virus [HIV] disease (3) Disseminated cryptococcosis: + blood cryptococcal antigen at 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 Wean off Levophed keeping mean arterial pressure over 65. Altered mental status of unknown cause: A lot more alert. Secondary to cryptococcal meningitis. Cryptococcal antigen in blood and CSF positive. Consistent with disseminated cryptococcal infection: Continue with AmBisome and fluconazole at current dose. Day 3 of treatment today. Check EKG. Overnight of 1 out of 4 bottles positive for gram-positive rods. Most likely contaminant. Repeat blood cultures sent. For now continue patient on vancomycin. Ceftriaxone discontinued yesterday. Appreciate ID recommendations. CSF studies appreciated. Other CSF and serum studies pending. We will continue to follow. Stop IV fluids. Albumin every 8 hourly. Patient's hemodynamics better. Lasix 40 mg once. Echocardiogram done in December 2019 shows an EF 55% with grade 3 diastolic dysfunction, mild aortic valve stenosis. Continue to monitor intake and output strictly. Keep saturation over 92%. Patient is DNR/DNI. Precedex as needed for agitation. Continue with Simeon catheterization for strict input output charting. Stool studies appreciated. Speech and swallow eval today to advance diet. If not able to will do NG tube feeds. HIV: HIV antigen positive but PCR negative. ? False positive antigen. Given disseminated cryptococcus patient is definitely immunosuppressed. CD4 count, genotype, infectious work-up still pending. For further evaluation we will follow ID recommendations. Hypertension: Goal blood pressure less than 140/90 mmHg with mean over 65. Hold off on antihypertensives for now. Type 2 diabetes mellitus: Once able to eat we will put sliding scale before meals and at bedtime. Grade 3 diastolic dysfunction: Monitor for fluid overload. Severely guarded prognosis. CODE STATUS: Discussed CODE STATUS with patient's twin sister who is at bedside Ms. Mehta. She states patient would never wanted to be on mechanical support or any heroic measures. CODE STATUS changed to DNR/DNI. We will start patient on heparin 5000 q. 8. Patient platelet count still low but more than 40,000. We will continue to monitor for bleeding. NPO. If patient continues to remain unresponsive most likely will do an NG tube and start on NG tube feeds within next 24 hours. Discussed with patient's sister at bedside regarding new developments with negative HIV PCR. We did discuss that given the disseminated cryptococcus patient is definitely immunocompromised but at this stage is not really sure if patient has HIV or not though given the immunocompromise status we will treat her as HIV. We also stated that patient requires further testing which will be sent out including HIV RNA type II. Patient sister is understandable. We also discussed even if she is HIV negative patient is critically sick because of Venkata cryptococcus and a severely guarded prognosis for now. We also discussed that for now we have AmBisome till the weekend and we are trying to arrange for more medications but if not possible then we will have to transfer patient to a higher center. Patient sister verbalized understanding. Continue with ICU care. 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
[2020-08-31] MEDS: FUROsemide 10 mg/mL SDV 4mL 40 MG IVP (14:02)
[2020-08-31 14:48] LABS: Reticulocyte % 4.1 % (0.5-2.0)
[2020-08-31 14:50] LABS: Glucose Point of Care 164 mg/dL (70-110)
--- NOTE | 2020-08-31 15:27 | PM.PN ---
Subjective Subjective: Interval history: Infectious disease progress note: Mental status is improving today. Patient correctly tells me her name, that she is 66 years old, earlier today she recognized her sister at bedside, correctly tells me that she has a twin sister whose name is Janine. Still disoriented to place and time. Her conversations do remain confused. Blood culture 04/15 reported as positive for GPR Medications: Reviewed: Yes Vitals/I&O/Wt Last Vital Signs Temp 97 F L 08/31/20 08:00 Pulse 87 08/31/20 14:09 Resp 16 08/31/20 14:06 BP 121/71 08/31/20 13:30 Pulse Ox 94 08/31/20 14:06 08/31/20 08/31/20 08/31/20 06:59 14:59 22:59 Intake Total 1100 / 4395.931 1205 / 1205 Output Total 150 / 650 600 / 600 Balance 950 / 3745.931 605 / 605 Weight last 48 hrs Weight 121.971 kg Weight 120.973 kg Physical Exam Narrative: EXAM NARRATIVE: GEN: significantly more awake compared to previous exams, converses in few short sentences however bulk of conversation is irrelevant. Correctly tells me her name and her sister's name. 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, follows simple commands Urinary Catheter Management^: Simeon: Cath Placed During This Visit: yes Reason for Continuing Indwelling Catheter: Accurate Measurement of Urinary Output in Critically Ill Patients Urinary Catheter Date of Insertion: 08/27/20 Urinary Catheter Time of Insertion: 16:04 Data : 08/31/20 05:15 08/31/20 05:15 Micro: Microbiology 08/31/20 14:53 Blood Culture - pending Blood 08/31/20 14:47 Blood Culture - pending Blood 08/27/20 01:19 Blood Culture - Preliminary Blood Gram positive toro /08/29/20 11:00 Gram Stain - Final Cerebrospinal Fluid CSF Culture - Preliminary Yeast, budding yeast on gram stain 08/29/20 11:00 Mycobacterial Smear - smear negative, culture pending Cerebrospinal Fluid bacterial ag panel: negative strep, Hib, meningitidis ag. Crytptococcal Ag: positive 08/30/20 11:57 Stool Lactoferrin - Final Stool Enteric Pathogens (PCR) -negative Parasite Antigen Panel - negative Occult Blood (FIT) - positive 08/30/20 11:57 C.difficile Toxin B Gene (PCR) - negative Stool Pertinent HIV labs : HIV AG + 08/28, + 08/30 HIV AB: NR 08/28, NR 08/30 HIV1 RNA VL: not detected HIV genotype: pending CD4 count: Pending toxoplasma serology : pending HLA B 5701: pending Quantiferon : pending RPR: negative GC/Chlamydia urine: negative A&P Assessment and plan (1) AIDS (acquired immune deficiency syndrome): THIS IS A PRESUMPTIVE DIAGNOSIS CURRENTLY. CONFIRMATORY TESTING IS STILL UNDERWAY HIV + antigen screening with disseminated cryptocococcosis as AIDS defining illness Status: Acute (2) HIV (human immunodeficiency virus infection): Newly diagnosed , this is currently a POSSIBLE diagnosis HIV AG testing +, AB negative on 4th gen combo Ag/AB test, however this is less likely to be acute HIV given presence of an AIDS defining illness. Above testing was repeated x 3 on the Alere Determine ag/ab combo test with same results. Surprisingly patient's HIV 1 RNA PCR returned negative. These test results appear quite discordant. A positive antigen test with negative antibody testing would be more indicative of acute HIV infection. However the presence of disseminated cryptococcus infection is against the diagnosis of acute HIV and more likely pharmacy services representative of AIDS/late stages, in which case would expect Ab and PCR test to be positive. Patient has no other underlying immunocompromising condition. HBa1c is 6.7 c/w well controlled DM. HIV-1 RNA additionally would expected to be positive even in an acute HIV infection even if at low numbers. If the patient is truly HIV negative, then in the absence of HIV or other immunocompromise, it would be unusual to have disseminated cryptococcal disease Possible explanation for this discordant test results could be: 1. False positive Alere HIV test. Will send out repeat on instrumented platform. 2.Acute HIV 3.False negative PCR test... will obtain repeat testing on different assay and/or test for pro viral DNA. 4. 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 Left message to discuss the above test results with [employer] director, further testing will be ordered based on available testing platforms and discussion with lab Will defer starting ART until HIV infection can be proven conclusively. If confirmed HIV positive, will defer starting ART until at least 2 months to minimize risk of IRIS. 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 No hydrocephaluss or mass lesions noted on CT currently. Started patient an ambisome 4mg/kg iv q24h + fluconazole 800mg iv qd (Flucytosine N/A) for induction therapy for at least 2 weeks on 08/29. this will be followed by consolidation and maintainenece. Rpt LP at 2 weeks, sooner if signs of intracranial HTN Monitor kidney function and qtc interval closely while on above regimen Status: Acute (5) Colitis: currently no diarrhea Status: Acute (6) Liver cirrhosis: hepatitis screen negative Status: Acute Qualifiers: Hepatic cirrhosis type: unspecified hepatic cirrhosis Ascites presence: without ascites Qualified Code(s): K74.60 - Unspecified cirrhosis of liver Attestations Medical Necessity Statement*: needs ongoing iv antifungal treatment for cryptococcal meningitis Coding Level of Care Code Acute Brand Advocate for [facility] Fwd Diagnoses AIDS (acquired immune deficiency syndrome) B20 HIV (human immunodeficiency virus infection) B20 HIV symptom status: symptomatic 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
[2020-08-31] MEDS: ferrous gluconate 324 mg Tablet PO (17:34)
[2020-08-31 18:53] LABS: VDRL on CSF NON-REACTIVE
--- NOTE | 2020-08-31 19:15 | PC.NURSE ---
Emesis During rounds and turning pt began belching and retching. Pt sat up in bed, nurse at bedside. Suction available. O2 at time of event was 86% on room, otherwise no sign of aspiration. 4mg zofran given IVP. HOB remains at 45degrees.
[2020-08-31] MEDS: ondansetron 2 mg/ML SDV 2 mL 4 MG IVP (19:25)
[2020-08-31 20:02] LABS: CMV DNA By PCR <200 IU/mL; CMV DNA, QN PCR <2.30 Log IU/mL; SOURCE WHOLE BLOOD
[2020-08-31 20:39] LABS: Glucose Point of Care 170 mg/dL (70-110)
[2020-09-01] VITALS (46 sets, daily range): BP systolic 71–193; BP diastolic 54–106; PULSE 64–115; RESP 15–42; TEMP 36.1–36.8; O2SAT 86–95
[2020-09-01] MEDS: heparin 5,000 unit/mL INJ 1 mL 5000 UNIT SUBCUT ×3 (00:40→17:07)
[2020-09-01 01:28] LABS: HSV 1 DNA NOT DETECTED; HSV 2 DNA NOT DETECTED; HSV Source PLASMA
[2020-09-01] MEDS: ondansetron 2 mg/ML SDV 2 mL 4 MG IVP (02:19)
--- NOTE | 2020-09-01 03:09 | PC.NURSE ---
Emesis Pt vomiting green bile, HOB in fowlers. 4mg zofran given IVP. Suction available at bedside.
[2020-09-01 03:10] LABS: Glucose Point of Care 167 mg/dL (70-110)
--- NOTE | 2020-09-01 03:10 | PC.NURSE ---
Hallucinations/Mental Status Pt grabbing for things in the air with hands. Remains confused. Will follow some commands. Has not slept, continuously taking off monitor cords, oxygen, wrist bands, rewarming blanket etc. Multiple attempts for distraction and redirection and orientation, which have been ineffective.
[2020-09-01] MEDS: famotidine 20 mg/2 mL INJ IVP ×2 (04:18→17:07)
[2020-09-01 04:50] LABS: Vancomycin Trough 44.9 ug/mL (10-15)
--- NOTE | 2020-09-01 05:32 | PC.NURSE ---
Nausea/Retching Pt nauseated with dry heaves. Dr. Sommers notified by phone and received telephone order for reglan 5mg IVP X 1.
[2020-09-01] MEDS: metoclopramide 5 mg/mL SDV 2 mL IVP (05:43)
[2020-09-01 06:09] LABS: Basophils # 0.1 10^3/uL (0.0-0.1); Basophils % 0.9 %; Eosinophils # 0.1 10^3/uL (0.0-0.8); Eosinophils % 1.5 %; Hematocrit 29.7 % (37.0-47.0); Hemoglobin 9.6 g/dL (11.5-15.3); Lymphocytes # 1.2 10^3/uL (0.8-4.8); Lymphocytes % 16.7 %; Mean Corpuscular HGB Conc 32.3 g/dL (30.0-36.0); Mean Corpuscular Hemoglobin 35.3 pg (28.0-34.0); Mean Corpuscular Volume 109.2 fL (81-99); Mean Platelet Volume 10.4 fL (7.4-10.4); Monocytes # 0.9 10^3/uL (0.2-0.9); Monocytes % 11.5 %; Neutrophils # 5.02 10^3/uL (1.8-7.7); Neutrophils % 67.8 %; Nucleated Red Blood Cells % 0 %; Platelet Count 126 10^3/cmm (130-400); Red Blood Count 2.72 10^6/uL (4.1-5.3); Red Cell Distribution Width 19.6 % (12.1-15.1); White Blood Count 7.4 10^3/uL (4.0-10.0)
[2020-09-01 06:23] LABS: Alanine Aminotransferase 16 U/L (0-33); Albumin Level 3.3 g/dL (3.5-5.2); Alkaline Phosphatase 54 IU/L (35-105); Aspartate Amino Transferase 39 U/L (0-32); Blood Urea Nitrogen 29 mg/dL (8-23); Calcium 8.6 mg/dL (8.5-10.5); Carbon Dioxide 22 mmol/L (22-29); Chloride 107 mmol/L (98-107); Globulin 3.2 g/dL (1.3-4.6); Glomerular Filtration Rate 50.2 mL/min (90-130); Glucose 156 mg/dL (65-115); Osmolality Calculated 303 mOsm/kg (285-295); Sodium 142 mmol/L (136-145); Total Bilirubin 2.7 mg/dL (0.15-1.2); Total Protein 6.5 g/dL (6.6-8.7)
[2020-09-01 06:25] LABS: Anion Gap 16.6 (5-19)
[2020-09-01 06:26] LABS: Potassium 3.6 mmol/L (3.5-5.1)
[2020-09-01] MEDS: ferrous gluconate 324 mg Tablet PO ×2 (08:15→17:07)
[2020-09-01] MEDS: nystatin powder 15 gm Btl 1 APPLIC TOPICAL ×2 (08:35→17:07)
[2020-09-01 08:36] LABS: Glucose Point of Care 166 mg/dL (70-110)
[2020-09-01] MEDS: ipratropium-albuterol 3 mL Neb INHALATION ×3 (09:13→20:19)
[2020-09-01] MEDS: budesonide 0.5 mg/2 mL Neb INHALATION ×2 (09:13→20:19)
--- NOTE | 2020-09-01 10:24 | ECG_ITS ---
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 Measurements Intervals [place] Rate: 93 P: 86 AL: 142 QRS: 18 QRSD: 97 T: 14 QT: 340 QTc: 424 Interpretive Statements SINUS RHYTHM WITH FREQUENT VENTRICULAR PREMATURE COMPLEXES LOW QRS VOLTAGE IN PRECORDIAL LEADS [QRS DEFLECTION < 1.0 mV IN CHEST LEADS] MINIMAL ST DEPRESSION [0.025+ mV ST DEPRESSION] Compared to ECG 08/31/2020 12:57:29 Ventricular premature complex(es) now present Low QRS voltage now present ST (T wave) deviation now present T-wave abnormality no longer present Electronically Signed On 09-01-2020 15:32:46 CDT by Kilo Little M.D. [id number]
[2020-09-01 10:59] LABS: Phosphorus 3.8 mg/dL (2.5-4.5)
--- NOTE | 2020-09-01 11:02 | P.PN_ITS ---
Subjective Subjective: Interval history: No acute events overnight. Seen multiple times during the day. Denies any nausea vomiting vomiting headache. Patient is a lot more awake today. Having complete conversation with me. She states that she has been feeling sick for more than a week prior to coming in. Has remained hemodynamically stable and afebrile overnight. Patient having occasional VPC during examination today. Did have mild hypothermia overnight but a lot better than before. Medications: Reviewed: Yes Vitals/I&O/Wt Last Vital Signs Temp 97.0 F L 09/01/20 04:00 Pulse 106 H 09/01/20 09:28 Resp 18 09/01/20 09:12 BP 144/91 09/01/20 08:00 Pulse Ox 94 09/01/20 09:12 08/31/20 09/01/20 09/01/20 22:59 06:59 14:59 Intake Total 1830 / 3035 100 / 3135 240 / 240 Output Total 400 / 1000 450 / 1450 250 / 250 Balance 1430 / 2035 -350 / 1685 -10 / -10 Weight last 48 hrs Weight 122.969 kg Weight 121.971 kg Physical Exam Narrative: EXAM NARRATIVE: General: AOx3, no acute distress HEENT: PERRLA, pupils bilaterally equal and reactive Chest: Normal vesicular breath sounds, no added sounds, equal good air entry bilaterally CVS: S1-S2 regular, no murmurs, tachycardia, no gallops, no rubs Abdomen: Soft, nontender, no organomegaly, bowel sounds present Neuro: No focal deficits, no facial deformity, Urinary Catheter Management^: Simeon: Cath Placed During This Visit: yes Reason for Continuing Indwelling Catheter: Accurate Measurement of Urinary Output in Critically Ill Patients Urinary Catheter Date of Insertion: 08/27/20 Urinary Catheter Time of Insertion: 16:04 Data : 09/01/20 04:15 09/01/20 04:15 Micro: Microbiology 08/27/20 01:19 Blood Culture - Preliminary Blood Corynebacterium species 08/31/20 14:53 Blood Culture - Preliminary Blood SPECIMEN COLLECTED 08/31/20 14:47 Blood Culture - Preliminary Blood SPECIMEN COLLECTED 08/29/20 11:00 Gram Stain - Final Cerebrospinal Fluid CSF Culture - Preliminary Yeast 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 HIV antigen testing was repeated and once again resulted with a positive antigen test and negative Ab. This test appear quite discordant. A positive antigen test with negative antibody testing would be more indicative of acute HIV infection. However the presence of disseminated cryptococcus infection is against the diagnosis of acute HIV and more likely lifeline representatives of AIDS/late stages. Patient has no other underlying immunocompromising condition. Moreover, HIV-1 RNA additionally would expected to be positive even in an acute HIV infection even if at low numbers. Possible explanation for this discordant test results could be: 1. False positive Alere HIV test. Will send out repeat on instrumented platform. 2.Acute HIV 3.False negative PCR test... will obtain repeat testing on different assay and/or test for pro viral DNA. 4. 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 Wean off Levophed keeping mean arterial pressure over 65. Altered mental status of unknown cause: A lot more alert. Secondary to cryptococcal meningitis. Cryptococcal antigen in blood and CSF positive. Consistent with disseminated cryptococcal infection: Continue with AmBisome and fluconazole at current dose. Day 4 of treatment today. As per ID will get induction treatment for 14 days. Overnight of 1 out of 4 bottles positive for Corynebacterium. Most likely contaminant. Repeat blood cultures prelim negative for now. DC vancomycin. Appreciate ID recommendations. CSF studies appreciated. Other CSF and serum studies pending. We will continue to follow. Check EKG, magnesium and phosphorus. While being on AmBisome keep potassium around 4 and magnesium around 3. ELIEZER: Most likely secondary to multiple antibiotics and antifungals going on. Normal diuretics. Gentle hydration at 50 cc/h while patient is not having good oral intake Albumin every 8 hourly. Will monitor for fluid overload. Echocardiogram done in December 2019 shows an EF 55% with grade 3 diastolic dysfunction, mild aortic valve stenosis. Continue to monitor intake and output strictly. Keep saturation over 92%. Patient is DNR/DNI. Precedex as needed for agitation. Continue with Simeon catheterization for strict input output charting. Stool studies appreciated. Speech and swallow eval today to advance diet. Physical therapy evaluation. HIV: HIV antigen positive but PCR negative. ? False positive antigen. Given disseminated cryptococcus patient is definitely immunosuppressed. CD4 count, genotype, infectious work-up still pending. For further evaluation we will follow ID recommendations. Hypertension: Goal blood pressure less than 140/90 mmHg with mean over 65. Hold off on antihypertensives for now. Type 2 diabetes mellitus: Once able to eat we will put sliding scale before meals and at bedtime. Grade 3 diastolic dysfunction: Monitor for fluid overload. Severely guarded prognosis. CODE STATUS: Discussed CODE STATUS with patient's twin sister who is at bedside Ms. Mehta. She states patient would never wanted to be on mechanical support or any heroic measures. CODE STATUS changed to DNR/DNI. We will start patient on heparin 5000 q. 8. Patient platelet count still low but more than 40,000. We will continue to monitor for bleeding. NPO. If patient continues to remain unresponsive most likely will do an NG tube and start on NG tube feeds within next 24 hours. Discussed with patient's sister at bedside regarding new developments with negative HIV PCR. We did discuss that given the disseminated cryptococcus patient is definitely immunocompromised but at this stage is not really sure if patient has HIV or not though given the immunocompromise status we will treat her as HIV. We also stated that patient requires further testing which will be sent out including HIV RNA type II. Patient sister is understandable. We also discussed even if she is HIV negative patient is critically sick because of Venkata cryptococcus and a severely guarded prognosis for now. We also discussed that for now we have AmBisome till the weekend and we are trying to arrange for more medications but if not possible then we will have to transfer patient to a higher center. Patient sister verbalized understanding. Continue with ICU care. If patient continues to do well can plan to transfer her to the floors in next 1 to 2 days. Discharge planning: Patient will need induction of treatment for 14 days overall. Day 4 today. We will plan for home health versus SNF near to discharge. Case management involved. Attestations Medical Necessity Statement*: Requires further hospitalization for management of altered mental status because of disseminated cryptococcus meningitis Critical Care Time: The high probability of a clinically significant, sudden or life threatening deterioration of the patient's [Renal] system(s) required my full and direct attention, intervention and personal management. The critical care time is as shown. 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
--- NOTE | 2020-09-01 11:03 | USCV_ITS ---
Cate Villavicencioela Age: 64 Gender: F : 1955 Exam Date: 09/01/2020 14:40 Ordering Phys: Carlos Valiente MD Technologist: Cate Pinto Exam Location: [facility] [place] Indication: PULM HTN AND DD BP: 137 / 100 HR: 96 Rhythm: Sinus Technical Quality: Adequate MEASUREMENTS (Male / Female) Normal Values 2D ECHO LV Diastolic Diameter PLAX 3.1 cm 4.2 - 5.9 / 3.9 - 5.3 cm LV Systolic Diameter PLAX 2.2 cm LV Chamber Size 3.6 cm IVS Diastolic Thickness 1.5 cm 0.6 - 1.0 / 0.6 - 0.9 cm IVS Systolic Thickness 1.9 cm LVPW Diastolic Thickness 2.4 cm 0.6 - 1.0 / 0.6 - 0.9 cm LVPW Systolic Thickness 2.2 cm RV Chamber Size 2.8 cm LVOT Diameter 2.1 cm LV Ejection Fraction 2D Teich 57.1 % LV Ejection Fraction MOD 2C 72.2 % LV Ejection Fraction 2C AL 72.7 % LA Diameter 4.7 cm LA Width 4.3 cm LA Height 6.7 cm RA Width 0.0 cm RA Height 5.3 cm Aorta at Sinotubular Diameter 3.4 cm M-MODE LV Diastolic Diameter MM 4.2 cm 4.2 - 5.9 / 3.9 - 5.3 cm LV Systolic Diameter MM 3.1 cm LV Ejection Fraction MM Teich 51.9 % IVS Diastolic Thickness MM 1.3 cm 0.6 - 1.0 / 0.6 - 0.9 cm IVS Systolic Thickness MM 1.6 cm LVPW Diastolic Thickness MM 1.3 cm 0.6 - 1.0 / 0.6 - 0.9 cm LVPW Systolic Thickness MM 1.7 cm RV Diastolic Diameter MM 2.2 cm Aortic Annulus Diameter 3.2 cm LA Ao Ratio MM 1.6 MV E Point Septal Separation 0.6 cm DOPPLER AV Peak Velocity 328.0 cm/s LVOT Peak Velocity 145.0 cm/s AV Area Cont Eq vti 1.7 cm squared AV Area Cont Eq pk 1.5 cm squared MV Area PHT 3.7 cm squared Mitral E to A Ratio 1.4 MV E' Velocity 93.0 cm/s Mitral E to MV E' Ratio 10.3 Mitral E to LV E' Lateral Ratio 8.8 Mitral E to LV E' Septal Ratio 12.4 TR Peak Velocity 322.5 cm/s TR Peak Gradient 41.6 mmHg TR Mean Velocity 252.4 cm/s TR Mean Gradient 32.2 mmHg TR Velocity Time Integral 93.8 cm TV Peak E Velocity 70.0 cm/s Right Atrial Pressure 15.0 mmHg Pulmonary Artery Systolic Pressu 56.6 mmHg PV Peak Velocity 80.0 cm/s RV Acceleration Time 0.1 s RV Ejection Time 0.4 s RV AcT/ET 0.3 FINDINGS Left Ventricle Normal left ventricular size. LV systolic function is normal with EF of 60-65%. No regional wall motion abnormalities. Diastolic function is abnormal Right Ventricle The right ventricle is normal in size and function. Right Atrium The right atrium is normal in size. Left Atrium The left atrium is normal in size. Mitral Valve Moderate mitral annular calcification without significant stenosis or prolapse. There is mild mitral regurgitation. Aortic Valve Structurally normal aortic valve. Moderate aortic stenosis is noted. By continuity equation, RYAN is 1.6cm2 and mean gradient across the valve is 22mmHg. There is no aortic regurgitation. Tricuspid Valve Structurally normal tricuspid valve without significant stenosis . Mild tricuspid regurgitation. RVSP around 60mmHg consistent with moderate to severe pulmonary hypertension Pulmonic Valve Structurally normal pulmonic valve without significant stenosis. There is no pulmonic regurgitation. Pericardium Normal pericardium without effusion. Aorta Normal ascending aorta dimension. CONCLUSIONS LV systolic function is normal with EF of 60-65% Diastolic function is abnormal Moderate aortic stenosis Moderate mitral annular calcification. Mild mitral regurgitation is noted Moderate to severe pulmonary hypertension Compared to prior echocardiogram from 12/27/2019, aortic stenosis has progressed to moderate stenosis and patient has moderate to severe pulmonary hypertension Kilo Little MD (Electronically Signed) Final Date: 01 Sep 2020 22:04 S
[2020-09-01] MEDS: lidocaine 1% 5 ML in potassium chloride premix 100 ML 25 ML IV (11:19)
[2020-09-01] MEDS: sodium chloride 0.9% 1,000 ML 50 ML IV (11:19)
--- NOTE | 2020-09-01 12:14 | PC.SOCIAL ---
IMM Update Attempted to update IMM with patient's sister over the phone but she did not answer. Also attempted to update patient in room. Patient altered, will need to reeducate. IMM left at bedside.
--- NOTE | 2020-09-01 13:12 | PM.PN ---
Subjective Subjective: Interval history: Mental status appears to be improving her again today. Patient is alert awake, tells me her correct name, can tell me her correct date of . Does not know place, ER or president. However able to have a sustained conversation, content varies between confused to accurate. Multiple VPCs noted on her EKG. 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 deficits Urinary Catheter Management^: Simeon: Cath Placed During This Visit: yes Reason for Continuing Indwelling Catheter: Accurate Measurement of Urinary Output in Critically Ill Patients Urinary Catheter Date of Insertion: 08/27/20 Urinary Catheter Time of Insertion: 16:04 Data : 09/01/20 04:15 09/01/20 04:15 Micro: Microbiology 08/27/20 01:19 Blood Culture - Preliminary Blood Corynebacterium species 08/31/20 14:53 Blood Culture - Preliminary Blood SPECIMEN COLLECTED 08/31/20 14:47 Blood Culture - Preliminary Blood SPECIMEN COLLECTED 08/29/20 11:00 Gram Stain - Final Cerebrospinal Fluid CSF Culture - Preliminary Yeast A&P Assessment and plan (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 Patient is clinically improving with initiation of antifungals over the last 48 hours. Started patient an ambisome 4mg/kg iv q24h + fluconazole 800mg iv qd (Flucytosine N/A) for induction therapy for at least the next two weeks which will be followed by consolidation and maintainenece. rpt LP at 2 weeks, sooner if signs of intracranial HTN Continue to monitor kidney function. Multiple PVCs noted on EKG today, check QTc interval, replete potassium to keep K at goal of 4. AmBisome may predispose her to hypokalemia and hypomagnesemia therefore electrolytes may need to be monitored carefully. d/c vancomycin 04/15+ blood cultures for GPR is likely to be a contaminant. 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 However this is less likely to be acute HIV given presence of an AIDS defining illness Confirmatory testing with HIV1 PCR returned negative. Possible explanation for this discordant test results could be: 1. False positive Alere HIV test. Sent out repeat on instrumented platform at [facility]. 2.Acute HIV , however this appears to be less likely as disseminated disease would typically be seen in later stages of the illness and would expect HIV-1 PCR to be positive 3.False negative PCR test... will obtain repeat testing on different assay and/or test for pro viral DNA if continue to obtain discordant results. 4. 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 Discussed above plan of testing with pathologist at [facility], Dr. Brandon. Appreciate assistance. Patient is more awake today and reports additional history of having a pet parakeet at home. States she is not involved in cleaning the birdcage however possible that it may be done in close proximity to her. Status: Acute Qualifiers: HIV symptom status: symptomatic Qualified Code(s): B20 - Human immunodeficiency virus [HIV] disease (5) Colitis: currently no diarrhea CMV quant DNA returned negative. unlikely CMV colitis enteric paratsite PCR panel negative Status: Acute (6) Liver cirrhosis: hepatitis screen negative Status: Acute Qualifiers: Hepatic cirrhosis type: unspecified hepatic cirrhosis Ascites presence: without ascites Qualified Code(s): K74.60 - Unspecified cirrhosis of liver Additional A&P Information All updates discused with patient's sister at bedside Attestations Medical Necessity Statement*: disseminated cryptococccus, will need iv antifungals at least ove rthe next 2 weeks, close monitoring of neuro status Critical Care Time: The high probability of a clinically significant, sudden or life threatening deterioration of the patient's [neuro, immune] system(s) required my full and direct attention, intervention and personal management. The critical care time is as shown. 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
[2020-09-01] MEDS: fluconazole premix 800 MG/400 ML PIGGYBACK 100 MG IV (14:27)
[2020-09-01 14:32] LABS: Glucose Point of Care 149 mg/dL (70-110)
[2020-09-01 20:52] LABS: Glucose Point of Care 149 mg/dL (70-110)
[2020-09-02] VITALS (48 sets, daily range): BP systolic 122–197; BP diastolic 74–126; PULSE 75–140; RESP 18–39; TEMP 36.4–36.7; O2SAT 86–96
[2020-09-02] MEDS: heparin 5,000 unit/mL INJ 1 mL 5000 UNIT SUBCUT ×3 (00:34→16:32)
[2020-09-02] MEDS: ipratropium-albuterol 3 mL Neb INHALATION ×4 (03:18→20:04)
[2020-09-02 04:03] LABS: Basophils # 0.1 10^3/uL (0.0-0.1); Basophils % 0.7 %; Eosinophils # 0.1 10^3/uL (0.0-0.8); Eosinophils % 0.6 %; Hematocrit 27.5 % (37.0-47.0); Hemoglobin 8.9 g/dL (11.5-15.3); Lymphocytes # 1.1 10^3/uL (0.8-4.8); Lymphocytes % 13.8 %; Mean Corpuscular HGB Conc 32.4 g/dL (30.0-36.0); Mean Corpuscular Hemoglobin 34.9 pg (28.0-34.0); Mean Corpuscular Volume 107.8 fL (81-99); Mean Platelet Volume 10.1 fL (7.4-10.4); Monocytes # 1.1 10^3/uL (0.2-0.9); Monocytes % 13.3 %; Neutrophils # 5.68 10^3/uL (1.8-7.7); Neutrophils % 69.6 %; Nucleated Red Blood Cells % 0.4 %; Platelet Count 117 10^3/cmm (130-400); Red Blood Count 2.55 10^6/uL (4.1-5.3); Red Cell Distribution Width 19.6 % (12.1-15.1); White Blood Count 8.2 10^3/uL (4.0-10.0)
[2020-09-02 04:30] LABS: Alanine Aminotransferase 18 U/L (0-33); Albumin Level 4.2 g/dL (3.5-5.2); Alkaline Phosphatase 52 IU/L (35-105); Aspartate Amino Transferase 35 U/L (0-32); Blood Urea Nitrogen 27 mg/dL (8-23); Calcium 9.2 mg/dL (8.5-10.5); Carbon Dioxide 20 mmol/L (22-29); Chloride 111 mmol/L (98-107); Globulin 2.5 g/dL (1.3-4.6); Glucose 145 mg/dL (65-115); Magnesium 2.1 mg/dL (1.7-2.3); Osmolality Calculated 310 mOsm/kg (285-295); Phosphorus 3.9 mg/dL (2.5-4.5); Sodium 146 mmol/L (136-145); Total Bilirubin 4.5 mg/dL (0.15-1.2); Total Protein 6.7 g/dL (6.6-8.7)
[2020-09-02 04:31] LABS: Anion Gap 19.2 (5-19); Potassium 4.2 mmol/L (3.5-5.1)
[2020-09-02] MEDS: famotidine 20 mg/2 mL INJ IVP ×2 (04:53→16:32)
--- NOTE | 2020-09-02 05:44 | PC.NURSE ---
Shift Summary Patient did not get any sleep at all in the last few days, she has been up all night confused and constantly removing her blood pressure cuff and oxygen. She is very restless and fidgety, does not keep her oxygen on for more than 30sec at a time. Patient pulled on her catheter during day shift and is now experiencing hematuria, patient had greater amount of urine early on in the shift but towards the end her urine out put dropped off some. Patient has had no more low temps and has not required the blanket warmer at all, patients labs look okay so far and patients rhythm seems nsr. Patient has been having a lot of ectopy when turned on her right side possibly due to the picc line being in too far, patient had a run of sinus tach that was resolved when patent bared down.
[2020-09-02 07:36] LABS: Glucose Point of Care 133 mg/dL (70-110)
[2020-09-02] MEDS: sodium chloride 0.9% 1,000 ML 50 ML IV (07:43)
[2020-09-02] MEDS: budesonide 0.5 mg/2 mL Neb INHALATION ×2 (08:54→20:05)
[2020-09-02] MEDS: metoprolol tartrate 25 mg Tablet PO ×2 (09:05→21:12)
[2020-09-02] MEDS: amlodipine 5 mg Tablet PO (09:05)
[2020-09-02] MEDS: ferrous gluconate 324 mg Tablet PO ×2 (09:05→17:52)
[2020-09-02] MEDS: nystatin powder 15 gm Btl 1 APPLIC TOPICAL ×2 (09:06→17:53)
[2020-09-02] MEDS: dextrose 5%-sod chloride 0.45% 1,000 ML 50 ML IV (10:59)
[2020-09-02] MEDS: fluconazole premix 800 MG/400 ML PIGGYBACK 100 MG IV (14:33)
--- NOTE | 2020-09-02 16:46 | PM.PN ---
Subjective Subjective: Interval history: No acute events overnight. Seen multiple times today. Sister at bedside. Patient is more awake but still having episodes of confusion. Not eating much. Has remained hemodynamically stable. Having episodes of tachycardia and hypertension now. Medications: Reviewed: Yes Vitals/I&O/Wt Last Vital Signs Temp 98.1 F 09/02/20 04:00 Pulse 77 09/02/20 14:07 Resp 20 H 09/02/20 13:59 BP 163/120 09/02/20 05:30 Pulse Ox 92 09/02/20 13:59 09/02/20 09/02/20 09/02/20 06:59 14:59 22:59 Intake Total 200 / 1827 1060 / 1060 Output Total 250 / 1425 Balance -50 / 402 1060 / 1060 Weight last 48 hrs Weight 123.831 kg Weight 122.969 kg Physical Exam Narrative: EXAM NARRATIVE: General: AOx3, no acute distress, occasional confusions HEENT: PERRLA, pupils bilaterally equal and reactive Chest: Normal vesicular breath sounds, no added sounds, equal good air entry bilaterally CVS: S1-S2 regular, no murmurs, tachycardia, no gallops, no rubs Abdomen: Soft, nontender, no organomegaly, bowel sounds present Neuro: No focal deficits, no facial deformity, Urinary Catheter Management^: Simeon: Cath Placed During This Visit: yes Reason for Continuing Indwelling Catheter: Accurate Measurement of Urinary Output in Critically Ill Patients Urinary Catheter Date of Insertion: 08/27/20 Urinary Catheter Time of Insertion: 16:04 Data : 09/02/20 03:39 09/02/20 03:39 Micro: Microbiology 08/29/20 11:00 Gram Stain - Final Cerebrospinal Fluid CSF Culture - Final Cryptococcus neoformans 08/27/20 01:00 Blood Culture - Final Blood NO GROWTH AFTER 5 DAYS 08/31/20 14:53 Blood Culture - Preliminary Blood NEGATIVE TO DATE 08/31/20 14:47 Blood Culture - Preliminary Blood NEGATIVE TO DATE 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 Status: Acute (2) HIV (human immunodeficiency virus infection): Status: Acute Qualifiers: HIV symptom status: symptomatic Qualified Code(s): B20 - Human immunodeficiency virus [HIV] disease (3) Disseminated cryptococcosis: + blood cryptococcal antigen at 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 Wean off Levophed keeping mean arterial pressure over 65. Altered mental status of unknown cause: A lot more alert. Secondary to cryptococcal meningitis. Cryptococcal antigen in blood and CSF positive. Consistent with disseminated cryptococcal infection: Continue with AmBisome and fluconazole at current dose. Day 5 of treatment today. As per ID will get induction treatment for 14 days. Overnight of 1 out of 4 bottles positive for Corynebacterium. Most likely contaminant. Repeat blood cultures prelim negative for now. DC vancomycin. Appreciate ID recommendations. CSF studies appreciated. Other CSF and serum studies pending. We will continue to follow. Check EKG, magnesium and phosphorus. While being on AmBisome keep potassium around 4 and magnesium around 3. Monitor liver function and renal functions. ELIEZER: Creatinine stable. Urine adequate. Most likely secondary to multiple antibiotics and antifungals going on. No more diuretics. Gentle hydration at 50 cc/h while patient is not having good oral intake.Switch fluids to D5NS. Recheck BMP at 6 PM. Albumin every 8 hourly. Will monitor for fluid overload. Echocardiogram done in December 2019 shows an EF 55% with grade 3 diastolic dysfunction, mild aortic valve stenosis. Continue to monitor intake and output strictly. Keep saturation over 92%. Patient is DNR/DNI. Precedex as needed for agitation. Continue with Simeon catheterization for strict input output charting. Stool studies appreciated. Speech and swallow eval today to advance diet. Physical therapy evaluation. HIV: HIV antigen positive but PCR negative. ? False positive antigen. Given disseminated cryptococcus patient is definitely immunosuppressed. CD4 count, genotype, infectious work-up still pending. For further evaluation we will follow ID recommendations. Hypernatremia: Change to fluids from normal saline to D5 half NS. Repeat BMP at 6 PM Hypertension: Goal blood pressure less than 140/90 mmHg with mean over 65. Blood pressure is elevated now. Add amlodipine 5 mg daily and metoprolol 25 mg twice daily for now. Will uptitrate medications as needed. Type 2 diabetes mellitus: Once able to eat we will put sliding scale before meals and at bedtime. Grade 3 diastolic dysfunction: Monitor for fluid overload. Severely guarded prognosis. CODE STATUS: Discussed CODE STATUS with patient's twin sister who is at bedside Ms. Mehta. She states patient would never wanted to be on mechanical support or any heroic measures. CODE STATUS changed to DNR/DNI. We will start patient on heparin 5000 q. 8. Patient platelet count still low but more than 40,000. We will continue to monitor for bleeding. NPO. If patient continues to remain unresponsive most likely will do an NG tube and start on NG tube feeds within next 24 hours. Discussed with patient's sister at bedside regarding new developments with negative HIV PCR. We did discuss that given the disseminated cryptococcus patient is definitely immunocompromised but at this stage is not really sure if patient has HIV or not though given the immunocompromise status we will treat her as HIV. We also stated that patient requires further testing which will be sent out including HIV RNA type II. Patient sister is understandable. We also discussed even if she is HIV negative patient is critically sick because of Venkata cryptococcus and a severely guarded prognosis for now. We also discussed that for now we have AmBisome till the weekend and we are trying to arrange for more medications but if not possible then we will have to transfer patient to a higher center. Patient sister verbalized understanding. Continue with ICU care. If patient continues to do well can plan to transfer her to the floors in next 1 to 2 days. Discharge planning: Patient will need induction of treatment for 14 days overall. Day 5 today. We will plan for home health versus SNF near to discharge. Case management involved. Attestations Medical Necessity Statement*: Requires further hospitalization for management of sepsis secondary to disseminated cryptococcal infection, monitoring of kidney and liver functions. Time Spent in Patient Care: Greater than 35 minutes (>than 50% of time spent in counselling and/or direct pt care on unit). 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
[2020-09-02 17:20] LABS: Glucose Point of Care 206 mg/dL (70-110)
[2020-09-02 18:41] LABS: Anion Gap 22.5 (5-19); Blood Urea Nitrogen 34 mg/dL (8-23); Carbon Dioxide 15 mmol/L (22-29); Chloride 108 mmol/L (98-107); Glomerular Filtration Rate 45.4 mL/min (90-130); Glucose 208 mg/dL (65-115); Osmolality Calculated 308 mOsm/kg (285-295); Potassium 3.5 mmol/L (3.5-5.1); Sodium 142 mmol/L (136-145)
--- NOTE | 2020-09-02 19:23 | PC.NURSE ---
Shift summary: Pt remains confused. She does answer to her name and follows simple commands. She thought she was in [place] today. Jaundiced sclera noted. Her eyes were rolled up most of the day. Sinus rhythm on monitor. Rectal temps above 97.4. Her PICC in right AC flushes and draws blood easily. NO changes in antibiotics today. Urine output low, hematuria noted. Bed bath provided, bloody discharge noted around urethra area. She has bruising all over. Under her breasts and groin excoriation noted. Brother and sister both in, at different times, for visiting.
--- NOTE | 2020-09-02 20:00 | PC.NURSE ---
SHIFT UPDATE This nurse asked patient where she was at and the patient did not reply. Then asked patient if she was in any pain and she shook her head no but gave no verbal response at any time.
[2020-09-02 21:23] LABS: Glucose Point of Care 238 mg/dL (70-110)
[2020-09-03] VITALS (32 sets, daily range): BP systolic 132–160; BP diastolic 74–117; PULSE 60–90; RESP 13–28; TEMP 36.1–36.4; O2SAT 91–100; BMI 41.2
[2020-09-03] MEDS: heparin 5,000 unit/mL INJ 1 mL 5000 UNIT SUBCUT ×3 (00:53→15:47)
[2020-09-03] MEDS: ipratropium-albuterol 3 mL Neb INHALATION ×4 (02:01→20:27)
[2020-09-03 04:36] LABS: Alanine Aminotransferase 16 U/L (0-33); Albumin Level 4.3 g/dL (3.5-5.2); Alkaline Phosphatase 53 IU/L (35-105); Blood Urea Nitrogen 38 mg/dL (8-23); Calcium 9.3 mg/dL (8.5-10.5); Carbon Dioxide 21 mmol/L (22-29); Chloride 111 mmol/L (98-107); Globulin 2.8 g/dL (1.3-4.6); Glomerular Filtration Rate 41.4 mL/min (90-130); Glucose 199 mg/dL (65-115); Magnesium 2.2 mg/dL (1.7-2.3); Osmolality Calculated 313 mOsm/kg (285-295); Phosphorus 3.7 mg/dL (2.5-4.5); Sodium 144 mmol/L (136-145); Total Bilirubin 6.1 mg/dL (0.15-1.2); Total Protein 7.1 g/dL (6.6-8.7)
[2020-09-03] MEDS: famotidine 20 mg/2 mL INJ IVP ×2 (04:37→15:47)
[2020-09-03 04:44] LABS: Anion Gap 17.3 (5-19); Aspartate Amino Transferase 38 U/L (0-32); Potassium 5.3 mmol/L (3.5-5.1)
--- NOTE | 2020-09-03 06:14 | PC.NURSE ---
SHIFT SUMMARY Patient was tranquil all night. Patient only said one word the whole evening and would only give head shakes yes or no to some questions asked. Most of the night the patient did not give any kind of response when asked a question. Patient denied pain all evening by shaking head side to side saying no. Patient currently has dextrose 5% in 0.45% sodium chloride infusing at 50 mLs/hr in her right PICC line. Patient had 150 mLs of bright red urine out all night, nightman notified about urine output.
[2020-09-03] MEDS: budesonide 0.5 mg/2 mL Neb INHALATION ×2 (08:03→20:27)
[2020-09-03 09:09] LABS: Basophils # 0.1 10^3/uL (0.0-0.1); Eosinophils # 0.1 10^3/uL (0.0-0.8); Hematocrit 26.6 % (37.0-47.0); Hemoglobin 8.6 g/dL (11.5-15.3); Lymphocytes # 1.1 10^3/uL (0.8-4.8); Lymphocytes % 17.3 %; Mean Corpuscular HGB Conc 32.3 g/dL (30.0-36.0); Mean Corpuscular Hemoglobin 34.8 pg (28.0-34.0); Mean Corpuscular Volume 107.7 fL (81-99); Mean Platelet Volume 10.1 fL (7.4-10.4); Monocytes # 0.6 10^3/uL (0.2-0.9); Monocytes % 9.5 %; Neutrophils # 4.34 10^3/uL (1.8-7.7); Neutrophils % 70.1 %; Nucleated Red Blood Cells % 0 %; Platelet Count 105 10^3/cmm (130-400); Red Blood Count 2.47 10^6/uL (4.1-5.3); Red Cell Distribution Width 19.5 % (12.1-15.1); White Blood Count 6.2 10^3/uL (4.0-10.0)
[2020-09-03] MEDS: metoprolol tartrate 25 mg Tablet PO ×2 (09:20→21:06)
[2020-09-03] MEDS: amlodipine 5 mg Tablet PO (09:20)
[2020-09-03] MEDS: ferrous gluconate 324 mg Tablet PO (09:20)
[2020-09-03] MEDS: nystatin powder 15 gm Btl 1 APPLIC TOPICAL ×2 (09:24→17:55)
[2020-09-03] MEDS: dextrose 5%-sod chloride 0.45% 1,000 ML 1 ML IV (09:24)
[2020-09-03 09:30] LABS: Total Bilirubin 5.9 mg/dL (0.15-1.2)
[2020-09-03 09:32] LABS: Lactate Dehydrogenase 215 U/L (135-214); Potassium 4.5 mmol/L (3.5-5.1)
--- NOTE | 2020-09-03 09:36 | PC.CHAP ---
Pastoral Care Encounter/Spiritual Assessment Type of Contact [] Declined music store manager visit [] Patient/Family/Request visit [] Outpatient visit [] Follow-up visit [] Physician referral [] Code/Alert [x] Routine visit [] Staff referral [] Actively dying [] Patient sleeping [x] Family support [] [] Out of room [] Palliative care [] [] Receiving care in room [] Pre-surgical visit [] Trauma [] Long length of stay [x] ICU visit [] Other: Relational/Emotional Strength [] Patient feels connected with others/family/visitors/staff [] Distress [] Loneliness/isolation [] Abandonment Spirituality of Patient [] Person of Xiomara [] Attends Anglican of their [place] [] Believes in Prayer [] Reads Bible or Judaism materials [] There are Spiritual issues to be addressed Landscape Engineer Interventions [x] Prayer [] Active listening [] Non-anxious presence [] Spiritual/emotional support [] Crisis/trauma care [] Spiritual counseling [] Bereavement support [] Provided bereavement packet [] Provided Bible/devotional materials [] Provided toy/stuffed animal, coloring book to patient or family member [] Provided Communion [] Anointing/[place] [] Salvation [x] Completed spiritual assessment [] Other: Impact on Illness or Injury [] Angry [] Fearful [] Anxious [] Often cries [] Exhaustion [] Unable to work [] Unable to attend cheondoism [] Unable to walk/stand [] Unable to read [] Unable to drive [] Unable to eat/drink [] Unable to sleep [] Unable to be with family [] Patient intubated [] Other: Summary twin sister present.. patients breathing labored.. breaths through mouth- but will not keep ask on... Time spent with patient 10 min
[2020-09-03 11:22] LABS: Glucose Point of Care 211 mg/dL (70-110)
--- NOTE | 2020-09-03 11:57 | XR_ITS ---
WS: [id number] Exam: XR chest 1V portable [id number] Date/Time of Exam: 09/03/2020 11:57 AM Reason For Exam: hypoxia Comparison 08/29/2020. The lung leger are generally clear. No consolidating infiltrates on today's exam. Mild cardiac enlar gement unchanged. Probable small left pleural effusion. No pneumothorax. A right-sided PICC line is i n place ending in the lower one third of the SVC. Monitoring leads superimpose the chest. Several sca ttered calcified granulomas. XR/XR chest 1V portable [id number] IMPRESSION: 1. No acute infiltrates noted on today's exam. 2. Small left-sided pleural effusion. 3. Cardiac enlargement unchanged.
--- NOTE | 2020-09-03 12:53 | PC.SOCIAL ---
IMM Update Attempted to update IMM with patient's sister over the phone but she did not answer. Attempted to update patient in room, but pt was altered. IMM left at bedside. Will update family if they call.
[2020-09-03 13:28] LABS: ABG PCO2 37.4 mmHg (35-45); ABG PH Result 7.36 (7.35-7.45); Arterial Blood Gas Hematocrit 27.1 % (37-47); Base Excess ABG -3.9 mmol/L (-2.0-2.0); Blood Gas Allen Test Pos; Blood Gas Sample Site Radial, right; Blood Gas Sample Type Arterial; HCO3 ABG 21.2 mmol/L (22-26); Oxygen Device NC; PO2 ABG 88.5 mmHg (80.0-100.0)
[2020-09-03] MEDS: fluconazole premix 800 MG/400 ML PIGGYBACK 100 MG IV (14:38)
--- NOTE | 2020-09-03 16:30 | PM.PN ---
Subjective Subjective: Interval history: Rather confused. This morning we, looking around the room, some nonpurposeful movements. However, does respond when spoken to, makes eye contact, holds hands, although does not otherwise follow commands well. Does not answer questions clearly. Vitals/I&O/Wt Last Vital Signs Temp 97.5 F L 09/03/20 12:00 Pulse 72 09/03/20 14:07 Resp 18 09/03/20 14:04 BP 151/98 09/03/20 12:00 Pulse Ox 100 09/03/20 14:04 09/03/20 09/03/20 09/03/20 06:59 14:59 22:59 Intake Total 100 / 2170 1100 / 1100 100 / 1200 Output Total 150 / 300 300 / 300 Balance -50 / 1870 800 / 800 100 / 900 Weight last 48 hrs Weight 122.952 kg Weight 123.831 kg Physical Exam Const: COMMON NORMALS: no acute distress; negative for patient oriented x3 NUTRITIONAL APPEARANCE: obese ORIENTATION/CONSCIOUSNESS: Yes confused HENMT: COMMON NORMALS: oropharynx normal Neck/C-Spine: COMMON NORMALS: no JVD Resp: COMMON NORMALS: normal respiratory effort and clear to auscultation bilaterally AUSCULTATION: clear to auscultation bilaterally Cardio: COMMON NORMALS: no JVD, regular rhythm, S1 normal heart sound present, S2 normal heart sound present and No murmurs present (Cardio) RHYTHM: regular rhythm HEART SOUNDS: S1 normal heart sound present and S2 normal heart sound present GI: COMMON NORMALS: Normal to inspection, nondistended, normoactive bowel sounds present, Soft to palpation and non-tender PALPATION: Yes Soft to palpation : OTHER: Mild hematuria, mild sediment noted Extremity: COMMON NORMALS: no joint enlargement and no pedal edema Neuro: COMMON NORMALS: moves all extremities; negative for patient oriented x3 Skin: COMMON NORMALS: no rashes or lesions noted GENERAL SKIN EXAM: no rashes or lesions noted Urinary Catheter Management^: Simeon: Cath Placed During This Visit: yes Reason for Continuing Indwelling Catheter: Accurate Measurement of Urinary Output in Critically Ill Patients Urinary Catheter Date of Insertion: 08/27/20 Urinary Catheter Time of Insertion: 16:04 Data : 09/03/20 08:56 09/03/20 08:56 Micro: Microbiology 08/29/20 11:00 Gram Stain - Final Cerebrospinal Fluid CSF Culture - Final Cryptococcus neoformans A&P Assessment and plan (1) Disseminated cryptococcosis: Continue AmBisome, fluconazole for total of 14 days. + blood cryptococcal antigen at 1:320 awaiting blood culture Status: Acute (2) Cryptococcal meningitis: Status: Acute (3) HIV (human immunodeficiency virus infection): Not clear that she has AIDS. HIV-1 negative. HIV 2 pending. Status: Acute Qualifiers: HIV symptom status: symptomatic Qualified Code(s): B20 - Human immunodeficiency virus [HIV] disease (4) Colitis: currently no diarrhea Status: Acute (5) Liver cirrhosis: hepatitis screen negative Ammonia on 08/27 was normal, minimal perihepatic ascites. Status: Acute Qualifiers: Hepatic cirrhosis type: unspecified hepatic cirrhosis Ascites presence: without ascites Qualified Code(s): K74.60 - Unspecified cirrhosis of liver Additional A&P Information Sepsis: Improved. Disseminated cryptococcal infection. Hyperkalemia: Change diet to low potassium. Recheck potassium level. With improvement on recheck. Monitor renal function with acute kidney injury. Altered mental status of unknown cause: A lot more alert. Secondary to cryptococcal meningitis. Confused, following some commands. Appears perhaps slightly worse today than yesterday. Cryptococcal antigen in blood and CSF positive. 1 out of 4 bottles positive for Corynebacterium. Most likely contaminant. Repeat blood cultures prelim negative for now. ELIEZER: Mild worsening, creatinine up to 1.3. DC'd IV fluids due to some tachypnea, slightly increased work of breathing this morning. Chest x-ray ordered, shows cardiomegaly. Will hold additional albumin for now. HIV antigen positive but PCR negative. Hypernatremia: Improved Hypertension: Goal blood pressure less than 140/90 mmHg with mean over 65. Increase amlodipine to 10 mg. Type 2 diabetes mellitus: sliding scale before meals and at bedtime. Grade 3 diastolic dysfunction: Monitor for fluid overload. Severely guarded prognosis. CODE STATUS: Discussed CODE STATUS with patient's twin sister who is at bedside Ms. Mehta. She states patient would never wanted to be on mechanical support or any heroic measures. CODE STATUS changed to DNR/DNI. Attestations Medical Necessity Statement*: Continue admission for assessment and management of disseminated cryptococcal infection, worsening renal function, hyperkalemia, follow-up on pending studies regarding HIV status. 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
[2020-09-03 17:12] LABS: E. Chaffeensis AB IGG <1:64; E. Chaffeensis AB IGM <1:20; RMSF IGG NOT DETECTED; RMSF IGM NOT DETECTED
[2020-09-03 17:16] LABS: Glucose Point of Care 189 mg/dL (70-110)
[2020-09-03 19:57] LABS: Quantiferon Mitogen 3.66 IU/mL; Quantiferon Nil 0.01 IU/mL; Quantiferon TB Gold NEGATIVE (NEGATIVE)
--- NOTE | 2020-09-03 20:00 | PC.NURSE ---
No Verbal Response Asked patient if she could state her name and . Patient did not give any verbal response. Asked the same question again and patient still did not give a verbal response. When asked if in pain patient shakes head no.
[2020-09-03 21:12] LABS: Glucose Point of Care 161 mg/dL (70-110)
--- NOTE | 2020-09-03 23:27 | P.PN_ITS ---
Subjective Subjective: Interval history: Seen at 8 pm on 09/03 Patient appearing to be more lethargic today. Per discussion with nurse at bedside she was not interactive today. followed some basic commands, did not partcipate in conversation Medications: Reviewed: Yes Vitals/I&O/Wt Last Vital Signs Temp 97.4 F L 09/03/20 20:00 Pulse 64 09/03/20 22:00 Resp 20 H 09/03/20 20:26 BP 155/74 09/03/20 20:00 Pulse Ox 99 09/03/20 20:26 09/03/20 09/03/20 09/04/20 14:59 22:59 06:59 Intake Total 1100 / 1100 750 / 1850 Output Total 300 / 300 125 / 425 Balance 800 / 800 625 / 1425 Weight last 48 hrs Weight 122.952 kg Weight 123.831 kg Physical Exam Narrative: EXAM NARRATIVE: GEN: Lethargic, asleep, difficult to awaken CVS: S1S2 N RS: CTA B/L Abd: Soft, nt/nd , bs+ ROLL FORM OPERATOR: unable to assess at this time Urinary Catheter Management^: Simeon: Cath Placed During This Visit: yes Reason for Continuing Indwelling Catheter: Accurate Measurement of Urinary Output in Critically Ill Patients Urinary Catheter Date of Insertion: 08/27/20 Urinary Catheter Time of Insertion: 16:04 Data : 09/05/20 04:31 09/05/20 04:31 A&P Assessment and plan (1) Cryptococcal meningitis: CSF analysis with low glu, high protein, elevated WBC suggestive of fungal meningoencephalitis Gram stain with buddidng yeast, ,cryptococcal ag + , culture showing yeast, pend ing final identification opening pressure N/A from LP, was technically difficult procedure No hydrocephaluss or mass lesions noted on CT currently. Patient is clinically improving with initiation of antifungals over the last 48 hours. Started patient an ambisome 4mg/kg iv q24h + fluconazole 800mg iv qd (Flucytosine N/A) for induction therapy for at least the next two weeks which will be followed by consolidation and maintainenece. rpt LP at 2 weeks, sooner if signs of intracranial HTN Continue to monitor kidney function. Multiple PVCs noted on EKG today, check QTc interval, replete potassium to keep K at goal of 4. AmBisome may predispose her to hypokalemia and hypomagnesemia therefore electrolytes may need to be monitored carefully. d/c vancomycin 1/4+ blood cultures for GPR is likely to be a contaminant. Status: Acute (2) Disseminated cryptococcosis: + blood cryptococcal antigen at 1:320 awaiting blood culture Status: Acute (3) Colitis: currently no diarrhea CMV quant DNA returned negative. unlikely CMV colitis enteric paratsite PCR panel negative Status: Acute (4) Liver cirrhosis: hepatitis screen negative Status: Acute Qualifiers: Ascites presence: without ascites Hepatic cirrhosis type: unspecified hepatic cirrhosis Qualified Code(s): K74.60 - Unspecified cirrhosis of liver (5) ELIEZER (acute kidney injury): REduce dose of Ambisome to 3mg/kg, rounded to 350mg daily Status: Acute Additional A&P Information HIV Diagnosis now is now excluded based on further testing: Patient initially was diagnosed with HIV/AIDS based on + HIV 1 Ag test on card test (antibodies remained negative), however further testing including HIV1/2 antibody and HIV Ag test (4th generation) on instrumented platform at [employer] has returned negative. Further HIV 1 PCR has returned negative from [facility]. Case was discussed with Dr. Huffman at [facility] and confirmatory testing has been performed twice, based on this patient has no laboratory evidence of HIV infection. HIV genotype had been sent to [email or web address] lab initially, awaiting results, expected to be negative. HIV 2 PCR additionally sent out to exclude this possibility, lower on the differential. It is likely that our lab test with [facility] determine kit was a false positive Ag test. Absolute CD4 count at 744. No overt reason for immunocompromise found Attestations Medical Necessity Statement*: Cryptococcal meningitis, needs ongoing iv antifungal treatment Coding Level of Care Code Acute Rotary Shear Operator for [facility] Fw Diagnoses Cryptococcal meningitis B45.1 Disseminated cryptococcosis B45.7 Colitis K52.9 Liver cirrhosis K74.60 Ascites presence: without ascites Hepatic cirrhosis type: unspecified hepatic cirrhosis ELIEZER (acute kidney injury) N17.9
[2020-09-04] VITALS (32 sets, daily range): BP systolic 123–166; BP diastolic 73–118; PULSE 54–72; RESP 7–26; TEMP 34.1–36.1; O2SAT 92–99; BMI 41.8
[2020-09-04] MEDS: heparin 5,000 unit/mL INJ 1 mL 5000 UNIT SUBCUT ×3 (00:16→15:37)
[2020-09-04] MEDS: dextrose 5%-sod chloride 0.45% 1,000 ML 50 ML IV ×2 (00:18→20:24)
[2020-09-04] MEDS: ipratropium-albuterol 3 mL Neb INHALATION ×4 (02:14→20:14)
[2020-09-04 03:08] LABS: Glucose-6-Phosphate Dehydrogen 16.7 U/g Hgb (7.0-20.5)
[2020-09-04] MEDS: famotidine 20 mg/2 mL INJ IVP ×2 (04:48→15:37)
[2020-09-04 05:40] LABS: Basophils # 0.1 10^3/uL (0.0-0.1); Eosinophils # 0.1 10^3/uL (0.0-0.8); Eosinophils % 1.6 %; Hemoglobin 8.9 g/dL (11.5-15.3); Lymphocytes % 13.8 %; Mean Corpuscular HGB Conc 31.8 g/dL (30.0-36.0); Mean Corpuscular Hemoglobin 35.7 pg (28.0-34.0); Mean Corpuscular Volume 112.4 fL (81-99); Mean Platelet Volume 10.7 fL (7.4-10.4); Monocytes # 0.5 10^3/uL (0.2-0.9); Monocytes % 6.4 %; Neutrophils % 75.6 %; Nucleated Red Blood Cells % 0.3 %; Platelet Count 84 10^3/cmm (130-400); Red Blood Count 2.49 10^6/uL (4.1-5.3); Red Cell Distribution Width 19.9 % (12.1-15.1)
[2020-09-04 06:09] LABS: Ammonia 87 umol/L (11-51)
--- NOTE | 2020-09-04 07:22 | PC.NURSE ---
Addendum entered by Lisa Bauer RN 09/04/20 07:52: Mohamud has D5 with 0.45% NS infusing at 50 mLs an hour in the right PICC line, not NS at 100 mLs an hour. Original Note: SHIFT SUMMARY Patient showed no signs of seizure activity all night. Gave a few verbal answers sporadically throughout the night. Patient currently has NS infusing in the right PICC line at 100 mLs/hr. Right PICC line flushes easily and has good blood return. Patient had 100 mLs of dark peter urine out for the night. Patient had no complaints of pain at any time throughout the night.
[2020-09-04 07:49] LABS: Glucose Point of Care 176 mg/dL (70-110)
[2020-09-04 07:56] LABS: Alanine Aminotransferase 16 U/L (0-33); Albumin Level 4.3 g/dL (3.5-5.2); Alkaline Phosphatase 53 IU/L (35-105); Blood Urea Nitrogen 45 mg/dL (8-23); Calcium 9.2 mg/dL (8.5-10.5); Carbon Dioxide 18 mmol/L (22-29); Chloride 111 mmol/L (98-107); Globulin 2.4 g/dL (1.3-4.6); Glomerular Filtration Rate 30.4 mL/min (90-130); Glucose 175 mg/dL (65-115); Magnesium 2.3 mg/dL (1.7-2.3); Osmolality Calculated 312 mOsm/kg (285-295); Phosphorus 4.7 mg/dL (2.5-4.5); Sodium 143 mmol/L (136-145); Total Bilirubin 5.7 mg/dL (0.15-1.2); Total Protein 6.7 g/dL (6.6-8.7)
[2020-09-04 08:09] LABS: Aspartate Amino Transferase 32 U/L (0-32)
--- NOTE | 2020-09-04 08:10 | PC.NURSE ---
Pt much more alert and aware than Wednesday. She is answering questions appropriately. She knows she is in the hospital. Rectal temp showing 93.4, pt stated she was chilly, taylaanish nails applied.
[2020-09-04] MEDS: budesonide 0.5 mg/2 mL Neb INHALATION ×2 (08:32→20:14)
[2020-09-04] MEDS: lactulose oral liq 20 gm/30 mL UDC PO ×3 (08:42→20:23)
[2020-09-04] MEDS: amlodipine 10 mg Tablet PO (08:42)
[2020-09-04] MEDS: ferrous gluconate 324 mg Tablet PO ×2 (08:42→18:03)
[2020-09-04] MEDS: nystatin powder 15 gm Btl 1 APPLIC TOPICAL ×2 (08:45→18:03)
--- NOTE | 2020-09-04 09:44 | PC.CHAP ---
Pastoral Care Encounter/Spiritual Assessment Type of Contact [] Declined atmospheric scientist visit [] Patient/Family/Request visit [] Outpatient visit [] Follow-up visit [] Physician referral [] Code/Alert [x] Routine visit [] Staff referral [] Actively dying [] Patient sleeping [] Family support [] [] Out of room [] Palliative care [] [] Receiving care in room [] Pre-surgical visit [] Trauma [] Long length of stay [x] ICU visit [] Other: Relational/Emotional Strength [] Patient feels connected with others/family/visitors/staff [] Distress [] Loneliness/isolation [] Abandonment Spirituality of Patient [] Person of [place] [] Attends Buddhist of their [place] [] Believes in Prayer [] Reads Bible or Hindu materials [] There are Spiritual issues to be addressed Vice President Interventions [x] Prayer [] Active listening [] Non-anxious presence [] Spiritual/emotional support [] Crisis/trauma care [] Spiritual counseling [] Bereavement support [] Provided bereavement packet [] Provided Bible/devotional materials [] Provided toy/stuffed animal, coloring book to patient or family member [] Provided Communion [] Anointing/[place] [] Salvation [x] Completed spiritual assessment [] Other: Impact on Illness or Injury [] Angry [] Fearful [] Anxious [] Often cries [] Exhaustion [] Unable to work [] Unable to attend methodist [] Unable to walk/stand [] Unable to read [] Unable to drive [] Unable to eat/drink [] Unable to sleep [] Unable to be with family [] Patient intubated [] Other: Summary patient breathing today with full face mask... resting better.... Time spent with patient 5 min
[2020-09-04 12:03] LABS: Glucose Point of Care 223 mg/dL (70-110)
--- NOTE | 2020-09-04 12:10 | PC.NURSE ---
TEmp now 97 rectally. Karen hugger removed, pt had started pulling it off. Pt more confused now, not wanting to eat any lunch. She had been resting with eyes closed.
[2020-09-04] MEDS: fluconazole premix 800 MG/400 ML PIGGYBACK 100 MG IV (13:32)
[2020-09-04 17:55] LABS: Glucose Point of Care 229 mg/dL (70-110)
--- NOTE | 2020-09-04 18:14 | P.PN_ITS ---
Subjective Subjective: Interval history: Today she is more alert. She states her appetite is not the best, and she is not enjoying the food at [facility]. But will be trying to eat some more. Denies any headache. No abdominal pain. No trouble breathing. Knows she is in the hospital. Knows the year is 2020. Vitals/I&O/Wt Last Vital Signs Temp 96.1 F L 09/04/20 15:00 Pulse 65 09/04/20 17:00 Resp 18 09/04/20 17:00 BP 138/76 09/04/20 17:00 Pulse Ox 97 09/04/20 17:00 09/04/20 09/04/20 09/04/20 06:59 14:59 22:59 Intake Total 14.9 / 1864.9 200 / 200 Output Total 100 / 525 75 / 75 Balance -85.1 / 1339.9 200 / 200 -75 / 125 Weight last 48 hrs Weight 124.88 kg Weight 122.952 kg Physical Exam Const: COMMON NORMALS: no acute distress, patient oriented x3 and alert GENERAL APPEARANCE: cooperative NUTRITIONAL APPEARANCE: obese ORIENTATION/CONSCIOUSNESS: Yes awake HENMT: COMMON NORMALS: oropharynx normal Neck/C-Spine: COMMON NORMALS: no JVD Resp: COMMON NORMALS: normal respiratory effort and clear to auscultation bilaterally AUSCULTATION: clear to auscultation bilaterally Cardio: COMMON NORMALS: no JVD, regular rhythm, S1 normal heart sound present, S2 normal heart sound present and No murmurs present (Cardio) RHYTHM: regular rhythm HEART SOUNDS: S1 normal heart sound present and S2 normal heart sound present GI: COMMON NORMALS: Normal to inspection, nondistended, normoactive bowel sounds present, Soft to palpation and non-tender PALPATION: Yes Soft to palpation : OTHER: Minimal hematuria, mild sediment noted Extremity: COMMON NORMALS: no joint enlargement and no pedal edema Neuro: COMMON NORMALS: patient oriented x3 and moves all extremities SENSORIUM/ORIENTATION: Yes alert Skin: COMMON NORMALS: no rashes or lesions noted GENERAL SKIN EXAM: no rashes or lesions noted Urinary Catheter Management^: Simeon: Cath Placed During This Visit: yes Reason for Continuing Indwelling Catheter: Accurate Measurement of Urinary Output in Critically Ill Patients Urinary Catheter Date of Insertion: 08/27/20 Urinary Catheter Time of Insertion: 16:04 Data : 09/04/20 04:53 09/04/20 07:15 Micro: Microbiology 08/27/20 01:19 Blood Culture - Final Blood Corynebacterium species A&P Assessment and plan (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 She is awake, alert, doing generally weak, but interacting, oriented to place and year. Decrease dose of amphotericin B to 300 mg bid continue fluconazole. Monitor renal function with acute kidney injury. Hold off on additional LP currently as mental status is better. Noted somewhat bradycardic, hypothermic. Check TSH. Beta-hector held. Rewarm. CSF analysis with low glu, high protein, elevated WBC suggestive of fungal meningoencephalitis Gram stain with buddidng yeast, ,cryptococcal ag + , culture showing yeast, pending final identification opening pressure N/A from LP, was technically difficult procedure No hydrocephaluss or mass lesions noted on CT currently. Patient is clinically improving with initiation of antifungals over the last 48 hours. Started patient an ambisome 4mg/kg iv q24h + fluconazole 800mg iv qd (Flucytosine N/A) for induction therapy for at least the next two weeks which will be followed by consolidation and maintainenece. rpt LP at 2 weeks, sooner if signs of intracranial HTN Continue to monitor kidney function. Multiple PVCs noted on EKG today, check QTc interval, replete potassium to keep K at goal of 4. AmBisome may predispose her to hypokalemia and hypomagnesemia therefore electrolytes may need to be monitored carefully. d/c vancomycin 1/4+ blood cultures for GPR is likely to be a contaminant. 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 Status: Acute (3) AIDS (acquired immune deficiency syndrome): Not likely AIDS HIV antigen + with disseminaated cryptocococcosis Status: Acute (4) HIV (human immunodeficiency virus infection): Newly diagnosed , this POSSIBLE diagnosis HIV 1 - antigen and PCR. Pending HIV 2, HTLV. HIV AG testing +, AB negative on 4th gen combo Ag/AB test repeated 3 times on Alere determine card test. However this is less likely to be acute HIV given presence of an AIDS defining illness Confirmatory testing with HIV1 PCR returned negative. Status: Acute Qualifiers: HIV symptom status: symptomatic Qualified Code(s): B20 - Human immunodeficiency virus [HIV] disease (5) Colitis: currently no diarrhea CMV quant DNA returned negative. unlikely CMV colitis enteric paratsite PCR panel negative Status: Acute (6) Liver cirrhosis: hepatitis screen negative Ammonia elevated. Start lactulose. Status: Acute Qualifiers: Ascites presence: without ascites Hepatic cirrhosis type: unspecified hepatic cirrhosis Qualified Code(s): K74.60 - Unspecified cirrhosis of liver Additional A&P Information Encephalopathy: Today she is much more alert. Hold off on repeat LP, which may be considered in case of further decline of mental status. However, also noted to have elevation of ammonia. Starting lactulose. Hyperbilirubinemia: Chronic in part related to cirrhosis, however, concern was for possible low degree hemolysis with minimal elevation LDH, mildly decreased haptoglobin. Anemia. Hemoglobin appears stable, however. Monitor. Keep bili decreasing. Recheck. Check SANTY. Requested direct and indirect antiglobulin test. Peripheral smear. Hypothermia: Check TSH. Rewarm. Attestations Medical Necessity Statement*: Continue admission for assessment management of encephalopathy, treatment of disseminated cryptococcosis, treatment of hepatic encephalopathy with underlying cirrhosis, adjustment of antifungal agents with ELIEZER. 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
--- NOTE | 2020-09-04 19:00 | PC.NURSE ---
Addendum entered by Meri Hansen RN 09/04/20 19:19: Pt yawned frequently throughout shift. It was noted by this nurse the yawning has increased from Wednesday. She will leave her mouth stretched wide open for several minutes at a time. Original Note: Shift summary: Pt rested in bed throughout shift. She was much more alert in am than rest of the day. She answered questions appropriately. Drowsiness this afternoon made it difficult for PT and OT to work with pt. She remains on pureed diet with thin liquids. She needs encouragement to remember to complete swallowing otherwise she starts coughing. Rectal temps ranged from 93.4 to 97. This am metoprolol held due to bradycardia, Dr Mace aware. PICC in right arm patent with good blood return. Simeon draining dark urine output very little at 75ml. Pt still receiving Flucanazole and Amphotericin IV. She also has fluids running at 50ml/hr, D5/0.45NS.
--- NOTE | 2020-09-04 19:30 | PC.NURSE ---
Report given to ADARSH Gonzalez.
[2020-09-04] MEDS: metoprolol tartrate 25 mg Tablet PO (20:23)
--- NOTE | 2020-09-04 21:10 | PC.NURSE ---
SWALLOWING DIFFICULTY Patient resting in bed and sitting straight up upon entering the room. This nurse came in to administer the evening dose of oral Lactulose, patient was able to swallow 20 mLs before starting to cough and turn bright red in the face. This nurse put nasal cannula back on patient at 3L. Patient is coughing and audible crackles heard when patient breathes. This nurse discarded the other 10 mls of lactulose to be given.
[2020-09-04 22:32] LABS: St. Louis Enceph.Virus IGG CSF <1:1; St. Louis Enceph.Virus IGM CSF <1:1
[2020-09-05] VITALS (29 sets, daily range): BP systolic 98–136; BP diastolic 54–90; PULSE 54–84; RESP 16–25; TEMP 34.9–35.7; O2SAT 90–95; BMI 42.0
[2020-09-05 00:25] LABS: Glucose Point of Care 236 mg/dL (70-110)
[2020-09-05] MEDS: ipratropium-albuterol 3 mL Neb INHALATION ×4 (03:13→20:11)
[2020-09-05 05:34] LABS: Basophils # 0.1 10^3/uL (0.0-0.1); Eosinophils # 0.1 10^3/uL (0.0-0.8); Eosinophils % 1.4 %; Hematocrit 27.9 % (37.0-47.0); Hemoglobin 8.7 g/dL (11.5-15.3); Lymphocytes % 11.4 %; Mean Corpuscular HGB Conc 31.2 g/dL (30.0-36.0); Mean Corpuscular Hemoglobin 34.4 pg (28.0-34.0); Mean Corpuscular Volume 110.3 fL (81-99); Mean Platelet Volume 11.2 fL (7.4-10.4); Monocytes # 0.6 10^3/uL (0.2-0.9); Monocytes % 6.2 %; Neutrophils # 7.14 10^3/uL (1.8-7.7); Neutrophils % 78.6 %; Nucleated Red Blood Cells % 0.4 %; Platelet Count 80 10^3/cmm (130-400); Red Blood Count 2.53 10^6/uL (4.1-5.3); Red Cell Distribution Width 20.2 % (12.1-15.1); White Blood Count 9.1 10^3/uL (4.0-10.0)
[2020-09-05 05:52] LABS: Alanine Aminotransferase 18 U/L (0-33); Albumin Level 3.9 g/dL (3.5-5.2); Alkaline Phosphatase 60 IU/L (35-105); Blood Urea Nitrogen 51 mg/dL (8-23); Calcium 9.6 mg/dL (8.5-10.5); Carbon Dioxide 18 mmol/L (22-29); Chloride 109 mmol/L (98-107); Globulin 2.9 g/dL (1.3-4.6); Glomerular Filtration Rate 22.5 mL/min (90-130); Glucose 203 mg/dL (65-115); Osmolality Calculated 315 mOsm/kg (285-295); Sodium 143 mmol/L (136-145); Total Protein 6.8 g/dL (6.6-8.7)
[2020-09-05 05:58] LABS: Aspartate Amino Transferase 40 U/L (0-32)
[2020-09-05] MEDS: famotidine 20 mg/2 mL INJ IVP ×2 (06:05→17:54)
--- NOTE | 2020-09-05 06:31 | PC.NURSE ---
Patient Discontinued PICC Line This nurse went in to check on the patient at 0530 and noticed that the PICC line in the right arm had been pulled out by the patient. Turned off IV fluids that were previously infusing and held pressure over the former right arm PICC line site. Charge nurse came in and started a new peripheral 20 gauge IV in the right forearm. New right forearm IV site flushes easily and has blood return.
--- NOTE | 2020-09-05 07:14 | PC.NURSE ---
New PICC Line Orders Called Dr. Mace to inform him that the patient pulled her right PICC line at 0530 this morning. He gave verbal orders to have a new PICC line placed.
--- NOTE | 2020-09-05 07:23 | PC.NURSE ---
Shift Summary Patient had 50 mLs of dark yellow urine out all night and had one large liquid bowel movement. Patient pulled out right PICC line, charge nurse inserted a 20 gauge peripheral IV in the right forearm and D5 with 0.45% NS is infusing in new right forearm IV. No complaints of any pain all evening. Patient was more responsive to questions last night than previous although she is still confused. When asked the day and year the patient states, I don't know . Patient received bed bath and linen change.
[2020-09-05 07:46] LABS: Glucose Point of Care 222 mg/dL (70-110)
[2020-09-05] MEDS: amlodipine 10 mg Tablet PO (08:33)
[2020-09-05] MEDS: ferrous gluconate 324 mg Tablet PO ×2 (08:33→17:55)
[2020-09-05] MEDS: lactulose oral liq 20 gm/30 mL UDC PO ×3 (08:33→21:15)
[2020-09-05] MEDS: nystatin powder 15 gm Btl 1 APPLIC TOPICAL ×2 (08:33→17:57)
[2020-09-05] MEDS: budesonide 0.5 mg/2 mL Neb INHALATION ×2 (08:35→20:11)
[2020-09-05] MEDS: metoprolol tartrate 25 mg Tablet PO (08:35)
--- NOTE | 2020-09-05 09:20 | PC.CHAP ---
Pastoral Care Encounter/Spiritual Assessment Type of Contact [] Declined airplane refueler visit [] Patient/Family/Request visit [] Outpatient visit [] Follow-up visit [] Physician referral [] Code/Alert [x] Routine visit [] Staff referral [] Actively dying [] Patient sleeping [] Family support [] [] Out of room [] Palliative care [] [] Receiving care in room [] Pre-surgical visit [] Trauma [] Long length of stay [x] ICU visit [x] Other: off oxygen, breathing on her own Relational/Emotional Strength [] Patient feels connected with others/family/visitors/staff [] Distress [] Loneliness/isolation [] Abandonment Spirituality of Patient [] Person of [place] [] Attends Restorationist of their [place] [] Believes in Prayer [] Reads Bible or Islam materials [] There are Spiritual issues to be addressed Laborer Syrup Machine Interventions [x] Prayer [] Active listening [] Non-anxious presence [] Spiritual/emotional support [] Crisis/trauma care [] Spiritual counseling [] Bereavement support [] Provided bereavement packet [] Provided Bible/devotional materials [] Provided toy/stuffed animal, coloring book to patient or family member [] Provided Communion [] Anointing/[place] [] Salvation [x] Completed spiritual assessment [] Other: Impact on Illness or Injury [] Angry [] Fearful [] Anxious [] Often cries [] Exhaustion [] Unable to work [] Unable to attend mandaen [] Unable to walk/stand [] Unable to read [] Unable to drive [] Unable to eat/drink [] Unable to sleep [] Unable to be with family [] Patient intubated [] Other: Summary Time spent with patient
--- NOTE | 2020-09-05 10:17 | PC.NURSE ---
PICC ATTEMPT TO OBTAIN CONSENT FOR PICC PLACEMENT, NO ANSWER OR VOICEMAIL SET UP. SPOKE WITH DEBBI, HE STATES HE WOULD LIKE ALL DECISIONS TO BE MADE BY SISTER WHO SHOULD BE AT FACILITY LATER TODAY.
--- NOTE | 2020-09-05 11:00 | PC.NURSE ---
Difficulties in obtaining B/P this morning. Pt keeps removing BP cuff during inflation. Changed out BP cuffs also.
[2020-09-05 12:11] LABS: Glucose Point of Care 225 mg/dL (70-110)
--- NOTE | 2020-09-05 12:26 | PC.SOCIAL ---
IMM Updated Updated pt's brother, Heri, on Pg 2 IMM. No questions voiced. Provided Heri a copy. Initialed, dated, & timed copy in chart.
[2020-09-05 14:03] LABS: Anti-Nuclear Antibody Screen NEGATIVE (NEGATIVE)
[2020-09-05] MEDS: fluconazole premix 800 MG/400 ML PIGGYBACK 100 MG IV (14:34)
--- NOTE | 2020-09-05 15:04 | ECG_ITS ---
[facility] Test Date: 2020-09-05 Pat Name: Susie Villavicencio Department: Room: ICU10 Gender: Female Sliver Former: : 1955 Requested By: Brock Mace Order Number: [id number] Reading MD: Yen Adan M.D. Measurements Intervals [place] Rate: 60 P: 77 NC: 148 QRS: 15 QRSD: 103 T: -60 QT: 436 QTc: 436 Interpretive Statements SINUS RHYTHM WITH OCCASIONAL SUPRAVENTRICULAR PREMATURE COMPLEXES LOW QRS VOLTAGE IN PRECORDIAL LEADS [QRS DEFLECTION < 1.0 mV IN CHEST LEADS] ABNORMAL QRS-T ANGLE [QRS-T AXIS DIFFERENCE > 60] Compared to ECG 09/01/2020 10:35:50 Ventricular premature complex(es) no longer present ST (T wave) deviation no longer present Electronically Signed On 09-05-2020 18:32:32 CDT by eYn Adan M.D. [email or web address]
--- NOTE | 2020-09-05 17:03 | P.PN_ITS ---
Subjective Subjective: Interval history: Mental status appears to be improving her again today. Patient is alert awake, tells me her correct name, can tell me her correct date of . Does not know place, ER or president. However able to have a sustained conversation, content varies between confused to accurate. Multiple VPCs noted on her EKG. Medications: Reviewed: Yes Vitals/I&O/Wt Last Vital Signs Temp 96.2 F L 09/05/20 04:00 Pulse 58 L 09/05/20 14:29 Resp 16 09/05/20 14:26 BP 134/76 09/05/20 01:00 Pulse Ox 92 09/05/20 14:26 09/05/20 09/05/20 09/05/20 06:59 14:59 22:59 Output Total 50 / 125 Balance -50 / 1847 Weight last 48 hrs Weight 125.22 kg Weight 124.88 kg Physical Exam Narrative: EXAM NARRATIVE: GEN: Awake, alert and oriented, no acute distress CVS: S1S2 N RS: CTA B/L Abd: Soft, nt/nd , bs+ BOX TRUCK WASHER: no focal neuro deficits Urinary Catheter Management^: Simeon: Cath Placed During This Visit: yes Reason for Continuing Indwelling Catheter: Accurate Measurement of Urinary Output in Critically Ill Patients Urinary Catheter Date of Insertion: 08/27/20 Urinary Catheter Time of Insertion: 16:04 Data : 09/05/20 04:31 09/05/20 04:31 Micro: Microbiology 08/31/20 14:53 Blood Culture - Final Blood NO GROWTH AFTER 5 DAYS 08/31/20 14:47 Blood Culture - Final Blood NO GROWTH AFTER 5 DAYS A&P Assessment and plan (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 Patient is clinically improving with initiation of antifungals over the last 48 hours. Started patient an ambisome 4mg/kg iv q24h + fluconazole 800mg iv qd (Flucyto sine N/A) for induction therapy for at least the next two weeks which will be followed by consolidation and maintainenece. rpt LP at 2 weeks, sooner if signs of intracranial HTN Continue to monitor kidney function. Multiple PVCs noted on EKG today, check QTc interval, replete potassium to keep K at goal of 4. AmBisome may predispose her to hypokalemia and hypomagnesemia therefore electrolytes may need to be monitored carefully. d/c vancomycin 1/+ blood cultures for GPR is likely to be a contaminant. 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 However this is less likely to be acute HIV given presence of an AIDS defining illness Confirmatory testing with HIV1 PCR returned negative. Possible explanation for this discordant test results could be: 1. False positive Alere HIV test. Sent out repeat on instrumented platform at [facility]. 2.Acute HIV , however this appears to be less likely as disseminated disease would typically be seen in later stages of the illness and would expect HIV-1 PCR to be positive 3.False negative PCR test... will obtain repeat testing on different assay and/or test for pro viral DNA if continue to obtain discordant results. 4. 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 Discussed above plan of testing with pathologist at [facility], Dr. Brandon. Appreciate assistance. Patient is more awake today and reports additional history of having a pet parakeet at home. States she is not involved in cleaning the birdcage however possible that it may be done in close proximity to her. Status: Acute Qualifiers: HIV symptom status: symptomatic Qualified Code(s): B20 - Human immunodeficiency virus [HIV] disease (5) Colitis: currently no diarrhea CMV quant DNA returned negative. 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
[2020-09-05] MEDS: dextrose 5%-sod chloride 0.45% 1,000 ML 50 ML IV (17:54)
--- NOTE | 2020-09-05 18:23 | PM.PN ---
Subjective Subjective: Interval history: She does still answer questions, vocalize, but with some delay compared to yesterday. Awake and alert. Denies pain. Vitals/I&O/Wt Last Vital Signs Temp 96.2 F L 09/05/20 04:00 Pulse 58 L 09/05/20 14:29 Resp 16 09/05/20 14:26 BP 134/76 09/05/20 01:00 Pulse Ox 92 09/05/20 14:26 09/05/20 09/05/20 09/05/20 06:59 14:59 22:59 Intake Total 100 / 100 1000 / 1100 Output Total 50 / 125 Balance -50 / 1847 100 / 100 1000 / 1100 Weight last 48 hrs Weight 125.22 kg Weight 124.88 kg Physical Exam Const: COMMON NORMALS: no acute distress and alert GENERAL APPEARANCE: cooperative NUTRITIONAL APPEARANCE: obese ORIENTATION/CONSCIOUSNESS: Yes awake HENMT: COMMON NORMALS: oropharynx normal Neck/C-Spine: COMMON NORMALS: no JVD Resp: COMMON NORMALS: normal respiratory effort and clear to auscultation bilaterally AUSCULTATION: clear to auscultation bilaterally Cardio: COMMON NORMALS: no JVD, regular rhythm, S1 normal heart sound present, S2 normal heart sound present and No murmurs present (Cardio) RHYTHM: regular rhythm HEART SOUNDS: S1 normal heart sound present and S2 normal heart sound present GI: COMMON NORMALS: Normal to inspection, nondistended, normoactive bowel sounds present, Soft to palpation and non-tender PALPATION: Yes Soft to palpation : OTHER: Minimal hematuria, mild sediment noted Extremity: COMMON NORMALS: no joint enlargement and no pedal edema Neuro: COMMON NORMALS: moves all extremities SENSORIUM/ORIENTATION: Yes alert Skin: COMMON NORMALS: no rashes or lesions noted GENERAL SKIN EXAM: no rashes or lesions noted and ecchymosis Urinary Catheter Management^: Simeon: Cath Placed During This Visit: yes Reason for Continuing Indwelling Catheter: Accurate Measurement of Urinary Output in Critically Ill Patients Urinary Catheter Date of Insertion: 08/27/20 Urinary Catheter Time of Insertion: 16:04 Data : 09/05/20 04:31 09/05/20 04:31 Micro: Microbiology 08/31/20 14:53 Blood Culture - Final Blood NO GROWTH AFTER 5 DAYS 08/31/20 14:47 Blood Culture - Final Blood NO GROWTH AFTER 5 DAYS A&P Assessment and plan (1) Cryptococcal meningitis: With noted worsening renal function, creatinine up to 2.2. Bilirubin gradually decreasing, today down to 5. AST, ALT stable. Alk phos normal. Discussed with infectious disease as well as with family, at this time we will hold additional after syncope, given worsening renal function. Reassess lumbar puncture, and if CSF cleared of infection, proceed with consolidation therapy. If not cleared, discussed additionally consideration may be given to continuation of fluconazole alone, although her sister understands that this is not the recommended treatment, and may be higher chance failure, alternatively continuation of amphotericin B despite worsening renal function, and proceeding to hemodialysis if necessary. Considering alternatives, sister is agreeable with this plan. Request will be for tomorrow. Requested to also my measure pressure if possible. We will repeat CT tonight given some fluctuation of mental status. CSF analysis with low glu, high protein, elevated WBC suggestive of fungal meningoencephalitis Gram stain with buddidng yeast, ,cryptococcal ag + , culture showing yeast, pending final identification opening pressure N/A from LP, was technically difficult procedure Continue to monitor kidney function. 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 Pending HIV to testing. Status: Acute (4) HIV (human immunodeficiency virus infection): HIV AG testing +, AB negative on 4th gen combo Ag/AB test repeated 3 times on Alere determine card test. However this is less likely to be acute HIV given presence of an AIDS defining illness Confirmatory testing with HIV1 PCR returned negative. HIV 1 antigen, HIV 1/2 antibodies negative. Status: Acute Qualifiers: HIV symptom status: symptomatic Qualified Code(s): B20 - Human immunodeficiency virus [HIV] disease (5) Colitis: currently no diarrhea CMV quant DNA returned negative. unlikely CMV colitis enteric paratsite PCR panel negative Status: Acute (6) Liver cirrhosis: hepatitis screen negative Status: Acute Qualifiers: Hepatic cirrhosis type: unspecified hepatic cirrhosis Ascites presence: without ascites Qualified Code(s): K74.60 - Unspecified cirrhosis of liver Attestations Medical Necessity Statement*: Continue admission for assessment management of cryptococcal meningitis, with worsening renal function, poor tolerance of amphotericin B, reassessment of CSF. 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
--- NOTE | 2020-09-05 18:24 | CTR_ITS ---
PROCEDURE INFORMATION: Exam: CT Head Without Contrast Exam date and time: 09/05/2020 6:27 PM Age: 64 years old Clinical indication: Altered mental status/memory loss and weakness, facial; Confusion or disorientation; Additional info: Fluctuating mentation, bradycardia TECHNIQUE: Imaging protocol: Computed tomography of the head without contrast. Radiation optimization: All CT scans at this facility use at least one of these dose optimization techniques: automated exposure control; mA and/or kV adjustment per patient size (includes targeted exams where dose is matched to clinical indication); or iterative reconstruction. Other technique: STROKE PROTOCOL was implemented. COMPARISON: CT head wo con* [id number] 08/27/2020 3:38 PM RADIATION DOSE METRICS: Total DLP (mGy-cm): 3279.16 FINDINGS: Brain: There is no evidence of infarct, soto-white matter differentiation is preserved. There is no hemorrhage or extra-axial collection. There is no mass. Cerebral ventricles: There is no hydrocephalus. Paranasal sinuses: Visualized sinuses are unremarkable. No fluid levels. Mastoid air cells: Visualized mastoid air cells are well aerated. Bones/joints: Unremarkable. No acute fracture. Soft tissues: Unremarkable. Other findings: There is motion artifact. CT/CT head wo con* [id number] IMPRESSION: No intracranial lesion or injury. No change from prior scan. ASSESSMENT: ASPECTS ([place] Stroke Program Early CT Score) is 10. Radiation Dose CTDIVOL = (mGy): DLP = 3279.16 (mGy-cm)
--- NOTE | 2020-09-05 19:20 | PC.NURSE ---
Report given to ADARSH Fry
--- NOTE | 2020-09-05 20:04 | PC.NURSE ---
Shift summary: Pt rested in bed, very drowsy today. She does answer some questions appropriately. She recognized her brother, Heri, and sister, Janine She is bruised all over. Lung sounds clear to diminished. She yawns frequently and leaves her mouth open for extended periods of time. She received Lactulose twice this shift of which she refused most of it. She barely eats any of her pureed diet. She needs encouragement to swallow, gracy. with liquids or she will cough. Urine output greatly diminished, only 50 ml out this shift too. it is dark peter in color. Pt pulled her PICC shortly before day shift, she now has a peripheral IV to right forearm. Orders for new PICC received today, PICC not placed yet. Amphotericin held due to poor kidney function. Albumin restarted today. She has had two liquid BM this shift.
[2020-09-05 20:34] LABS: Urine Creatinine 127 mg/dL (28-217); Urine Random Sodium 63 mmol/L
[2020-09-05 21:56] LABS: Glucose Point of Care 221 mg/dL (70-110)
[2020-09-06] VITALS (45 sets, daily range): BP systolic 89–122; BP diastolic 45–77; PULSE 55–71; RESP 15–31; TEMP 34.7–35.9; O2SAT 90–96
[2020-09-06] MEDS: ipratropium-albuterol 3 mL Neb INHALATION ×3 (03:27→20:30)
[2020-09-06] MEDS: famotidine 20 mg/2 mL INJ IVP ×2 (03:39→17:29)
[2020-09-06 05:29] LABS: Basophils # 0.1 10^3/uL (0.0-0.1); Basophils % 0.8 %; Eosinophils # 0.1 10^3/uL (0.0-0.8); Eosinophils % 1.3 %; Hemoglobin 8.3 g/dL (11.5-15.3); Lymphocytes # 0.8 10^3/uL (0.8-4.8); Lymphocytes % 8.5 %; Mean Corpuscular HGB Conc 33.2 g/dL (30.0-36.0); Mean Corpuscular Hemoglobin 35.3 pg (28.0-34.0); Mean Corpuscular Volume 106.4 fL (81-99); Mean Platelet Volume 11.5 fL (7.4-10.4); Monocytes # 0.7 10^3/uL (0.2-0.9); Monocytes % 7.8 %; Neutrophils # 7.31 10^3/uL (1.8-7.7); Neutrophils % 80.7 %; Nucleated Red Blood Cells # 0.1 /100WBC; Nucleated Red Blood Cells % 0.7 %; Platelet Count 75 10^3/cmm (130-400); Red Blood Count 2.35 10^6/uL (4.1-5.3); Red Cell Distribution Width 20.5 % (12.1-15.1); White Blood Count 9.1 10^3/uL (4.0-10.0)
[2020-09-06 06:00] LABS: Alanine Aminotransferase 18 U/L (0-33); Albumin Level 4.1 g/dL (3.5-5.2); Alkaline Phosphatase 65 IU/L (35-105); Anion Gap 20.3 (5-19); Aspartate Amino Transferase 36 U/L (0-32); Blood Urea Nitrogen 56 mg/dL (8-23); Calcium 9.6 mg/dL (8.5-10.5); Carbon Dioxide 18 mmol/L (22-29); Chloride 108 mmol/L (98-107); Globulin 2.4 g/dL (1.3-4.6); Glomerular Filtration Rate 15.2 mL/min (90-130); Glucose 214 mg/dL (65-115); Osmolality Calculated 318 mOsm/kg (285-295); Potassium 3.3 mmol/L (3.5-5.1); Sodium 143 mmol/L (136-145); Total Bilirubin 5.1 mg/dL (0.15-1.2); Total Protein 6.5 g/dL (6.6-8.7)
--- NOTE | 2020-09-06 08:00 | FL_ITS ---
WS: [id number] LUMBAR PUNCTURE UNDER FLUOROSCOPY: OBTAIN CSF FOR ANALYSIS HISTORY: assess for clearance of cryptococcal meningitis COMPARISON: None available. FLUOROSCOPY TIME: 0.6 minutes. Procedure, complications, and risk and benefits explained to the patient. Consent was obtained. Recen t laboratory work and medication are reviewed prior to procedure. Skin over the lumbar is cleansed with ChloraPrep and anesthetized with 1% buffered lidocaine. Access into the thecal sac is achieved. CSF is removed in a sterile manner and placed in the sterile tubes. Approximately 10 ml is removed without difficulty. Patient was very agitated during this examination. No complications are encountered. CSF this into the laboratory for analysis as requested. FL/FL guided lumbarpunc dx* [id number] IMPRESSION: Uncomplicated lumbar puncture for CSF. Opening pressure 17 mmHg.
[2020-09-06 08:07] LABS: Glucose Point of Care 244 mg/dL (70-110)
[2020-09-06] MEDS: ferrous gluconate 324 mg Tablet PO (08:14)
[2020-09-06] MEDS: amlodipine 10 mg Tablet PO (08:14)
[2020-09-06] MEDS: nystatin powder 15 gm Btl 1 APPLIC TOPICAL ×2 (08:15→17:29)
--- NOTE | 2020-09-06 09:20 | PC.NURSE ---
This AM patient is alert and oriented to self, place, and year. Voice is very weak and difficult to understand. Patient was able to raise arms when asked. This nurse sat patient up in fowlers position to take a drink of water and patient had an episode of coughing after drink. AM medications crushed and given with applesauce. Patient had to reminded multiple times to swallow. Lactulose was refused after one sip. Breakfast was refused.
--- NOTE | 2020-09-06 09:36 | XR_ITS ---
WS: [id number] Exam: XR chest 1V portable [id number] Date/Time of Exam: 09/06/2020 9:43 AM Reason For Exam: picc placement Comparison 09/03/2020. A left-sided PICC line is been placed and appears to end at the cavoatrial junction. There are patchy infiltrates noted throughout the right lung and also the visualized upper left lung. Parts of the le ft chest are out of the [id number]. Monitoring leads superimpose the chest. XR/XR chest 1V portable [id number] IMPRESSION: 1. Left-sided PICC line in satisfactory position ending at the expected region of the cavoatrial junction. 2. There are patchy infiltrates visualized in both lungs. Limited exam.
--- NOTE | 2020-09-06 12:00 | PC.NURSE ---
Patient was taken to radiology to have lumbar puncture done. Patient was proned on table and put in trendelenburg position. She began waving arms off the bed and attempting to get out of the position. Staff decided we were unable to continue. Patient was brought back to ICU
[2020-09-06 13:12] LABS: Glucose Point of Care 208 mg/dL (70-110)
[2020-09-06] MEDS: fluconazole premix 800 MG/400 ML PIGGYBACK 100 MG IV (13:13)
[2020-09-06] MEDS: dextrose 5%-sod chloride 0.45% 1,000 ML 50 ML IV (13:17)
[2020-09-06] MEDS: LORazepam 2 mg/mL INJ 1 mL 0.5 MG IVP (16:11)
--- NOTE | 2020-09-06 16:11 | PC.NURSE ---
Patient was taken to radiology for lumbar puncture. CS was collected. PRN ativan was given per orders. All vitals WNL
[2020-09-06 16:30] LABS: CSF Mononuclear # 1.373 10^3/uL (50-90); Mononuclear WBC CSF % 100 % (50-90); Polynuclear Cells ,CSF # 0.004 10^3/uL (0-10); Polynuclear WBC CSF % 0 % (0-10); Red Blood Cell CSF 0 10^3/uL (0-0); White Blood Cell CSF 1377 /uL (0-5)
[2020-09-06 16:38] LABS: Glucose CSF 54 mg/dL (40-70)
--- NOTE | 2020-09-06 16:44 | PC.NURSE ---
Karen nails applied for low temperature of 94.5
[2020-09-06 17:22] LABS: Total Protein CSF 90 mg/dL (15-45)
[2020-09-06 17:27] LABS: Glucose Point of Care 259 mg/dL (70-110)
[2020-09-06 17:47] LABS: Appearance CSF CLOUDY (CLEAR)
[2020-09-06 17:48] LABS: Color CSF OTHER (COLORLESS); Pathology Referral Yes
[2020-09-06] MEDS: lidocaine 1% 5 ML in potassium chloride premix 100 ML 50 ML IV (18:29)
--- NOTE | 2020-09-06 18:38 | PC.NURSE ---
Patient has been more difficult to arouse this evening. This nurse attempted to give patient a pill crushed in pudding and patient closed her mouth and turned her head away. Dinner was offered and patient did not respond. Dr. Mace in room and attempted to wake patient and she did not respond to verbal command. Withdrawn from sternal rub only.
[2020-09-06 19:02] LABS: Ammonia 103 umol/L (11-51)
[2020-09-06 19:04] LABS: INR 2.48 (0.8-1.2)
[2020-09-06 19:06] LABS: Partial Thromboplastin Time 53.7 SECONDS (23.9-36.7)
[2020-09-06 19:22] LABS: D Dimer 19.22 ug/mIFEU (0-0.59)
[2020-09-06 19:49] LABS: Fibrinogen 57 mg/dL (174-498)
[2020-09-06] MEDS: budesonide 0.5 mg/2 mL Neb INHALATION (20:30)
[2020-09-06] MEDS: piperacillin-tazobactam 3.375 GM in sodium chloride 0.9% (plus) 50 ML IV (20:31)
[2020-09-06 21:06] LABS: Glucose Point of Care 244 mg/dL (70-110)
--- NOTE | 2020-09-06 21:07 | PM.TDS ---
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 (3) Colitis: Status: Acute (4) Liver cirrhosis: Status: Acute Qualifiers: Hepatic cirrhosis type: unspecified hepatic cirrhosis Ascites presence: without ascites Qualified Code(s): K74.60 - Unspecified cirrhosis of liver (5) ELIEZER (acute kidney injury): Status: Acute Reason for Visit Reason for Visit: CONFUSED/ BLOOD IN URINE Hospital Course Hospital Course 64-year-old lady being treated for disseminated cryptococcal infection and cryptococcal meningitis, complicated by a number of metabolic abnormalities, with past history of DM2, HTN, HLD, grade 3 diastolic dysfunction, morbid obesity, was brought in by family due to found with altered mental status, in a pool of feces, normally living with a friend, but with noted poor living conditions, with mouse feces around the house. Her siblings, twin sister (eldest) and brother notified [facility]. On presentation initially very agitated, requiring multiple doses of Ativan, Haldol, started on Precedex drip, on presentation noted in sepsis, initially started empirically on vancomycin, Zosyn, initial evaluation CT abdomen pelvis showing possible colitis with ascending colonic thickening, inflammatory stranding extending into proximal transverse colon, also noted incidentally new cirrhotic liver with small amount of paraparetic ascites, splenomegaly. Incidentally also noted diffuse endometrial thickening measuring 12 mm, abnormal in postmenopausal patient suspicious for hyperplasia versus neoplasia, which will need additional evaluation once she is more stable. Mild abdominal and pelvic ascites. Sigmoid diverticulosis. No diverticulitis. Fat-containing umbilical hernia. Chest x-ray on presentation unremarkable. CT head with mild small vessel changes, moderate parenchymal volume loss. Urine drug screen on admission negative. Echocardiogram during hospitalization (09/01) with also incidentally noted moderate aortic stenosis, as well as moderate to severe pulmonary hypertension suspected. Among initial studies HIV antigen initially noted positive. PCR, however, was negative. She was seen by infectious disease. LP obtained, transiently antibiotic switch to ceftriaxone, vancomycin, ampicillin, with addition of acyclovir. Blood cryptococcal antigen found positive. CSF with 1193 cells, 40% mononuclear, 60% polynuclear. Glucose low at 10, total protein high at over 700. CSF culture growing cryptococcus neoformans. Other CSF studies include VDRL, Lyme serology, Advance encephalitis serology negative. Mycobacterial smear. Acyclovir, ampicillin discontinued, she was started on AmBisome 400 mg and fluconazole 800 mg induction on 08/29. G6PD within normal limits. Subsequently after 4 days total with improving mental status vancomycin, Rocephin were stopped. Transiently required pressor support initially which was then weaned off. PICC line was placed on 08/29, although subsequently pulled out by pt inadvertently, and replaced on 09/06. Initial blood culture +1/4 bottles for corynebacterium species from 08/27. Repeat blood culture 08/31 negative. Additional studies included MRSA PCR which was negative. Urine bacterial antigens and Legionella antigen negative. Chlamydia, Neisseria gonorrhea JESSICA negative. HSV 1 and 2 DNA negative. Lyme serology from blood and CSF pending. CMV PCR negative. Ehrlichia serology negative. Rickettsia serology negative. Influenza antigen a and B negative. Acute viral hepatitis panel negative. QuantiFERON gold negative. SANTY negative. CRP elevated to 55.7. Stool studies include enteric bacterial and parasite panels which were negative. C. difficile negative. Stool lactoferrin negative. Occult blood positive. With regards to discordant HIV testing, testing was repeated, with noted negative HIV 1 antigen and HIV 1/HIV-2 antibodies. With AmBisome initiation noted improvement in mental status, some improvement in hyperbilirubinemia innitially, but progressively worsening renal function. Creatinine initially normal, steadily rising up to 3.1 today. Also noted increase in bilirubin, somewhat elevated on presentation, 4.8 - 3.7 - 4 - 2.3 - 2.7, thought to be secondary to newly found cirrhosis, then up to as high as 6.1 on 09/03 with some gradual decrease down to 5.1 today. Fractionated bilirubin revealed elevation of both direct and indirect fractions without abdominal pain. Other liver parameters remained normal. LDH found minutely elevated at 215 U/L on 09/03, haptoglobin minimally decreased from normal at 26 mg/L (low normal 30). Marybel negative. She is worsening and platelets came down to 75 from initial 159 and gradual decline in hemoglobin, today 8.3, 12.2 on presentation. No schistocytes noted on automated differential. Plasmic score low for TTP. AmBisome held on 09/05. Fluconazole was continued in today renally adjusted. She has been receiving albumin infusions which were restarted on 09/05, so far without response and renal function. Renal function decline felt to be temporally related to AmBisome therapy. In case continues without response hepatorenal syndrome may be considered as well. She underwent repeat lumbar puncture on 09/06 with so far noted possibly partial response, WBC 1377, 100% mononuclear, total protein with improvement down to 90, glucose with improvement to 54. No organisms seen on Gram stain. Cryptococcal antigen noted negative. Culture requested. With poor tolerance of AmBisome, since she would benefit from additional consideration of induction therapy, with consideration of flucytosine plus fluconazole as per prior discussion with infectious disease which is not available here, we discussed with family consideration of transfer to higher level care facility. They understand that she is very ill, with both underlying comorbidities and acute disseminated cryptococcal infection both contributing to very high risk of mortality or otherwise poor outcome due to the severity of her illness. They are agreeable to attempt transfer to higher level facility, with preference to either [place] or [place] if possible. Discussing with [facility], they went on ICU divert, speaking with [facility] are unable to provide appropriate level of care in terms of medication availability. Of note since 09/04, also transiently noted to have mild hypothermia, responding to bear hugger, today temperature is low at 94.5. With rewarming improving to 96.1. No rise noted in WBC level. No tachycardia, or other bradycardic even off Precedex, heart rates in the mid to high 50s. On chest x-ray obtained today appears possible patchy infiltrates in both lungs. With altered mental status, hypothermia, with consideration of possible aspiration pneumonitis or pneumonia, possible sepsis, is restarted on antibiotic coverage with Zosyn. Blood cultures are repeated. Concern also regarding decompensation of liver cirrhosis, with rise in ammonia, INR. Ammonia initially normal, on 09/04 ammonia 87, she was started on lactulose. Despite this today ammonia 103. INR on 08/28 noted 1.58. Today 2.48. Due to possibility also hepatorenal syndrome with poor response and renal function to albumin infusions, will add lower rate vasopressor, norepinephrine at 0.5 mg/h. Monitor response, reassess renal function. Coagulation studies repeated tonight. DIC possible with PT 27.3, INR 2.48, fibrinogen 0.57 g/L, positive fibrin degradation products, more than 40, D-dimer 19.22. As noted above no schistocytes noted on automated differential. Plasmic score low for TTP. Transfuse FFP. Monitor platelets, DIC parameters. As neither [facility] nor [facility] can accept at this time, we are providing requested information by [facility] for consideration of acceptance for transfer to [place] as per family wishes. Physical Exam Const: COMMON NORMALS: no acute distress and alert GENERAL APPEARANCE: cooperative NUTRITIONAL APPEARANCE: obese ORIENTATION/CONSCIOUSNESS: Yes awake HENMT: COMMON NORMALS: oropharynx normal Neck/C-Spine: COMMON NORMALS: no JVD Resp: COMMON NORMALS: normal respiratory effort and clear to auscultation bilaterally AUSCULTATION: clear to auscultation bilaterally Cardio: COMMON NORMALS: no JVD, regular rhythm, S1 normal heart sound present, S2 normal heart sound present and No murmurs present (Cardio) RHYTHM: regular rhythm HEART SOUNDS: S1 normal heart sound present and S2 normal heart sound present GI: COMMON NORMALS: Normal to inspection, nondistended, normoactive bowel sounds present, Soft to palpation and non-tender PALPATION: Yes Soft to palpation : OTHER: Minimal hematuria, mild sediment noted Extremity: COMMON NORMALS: no joint enlargement and no pedal edema Neuro: COMMON NORMALS: moves all extremities SENSORIUM/ORIENTATION: Yes alert Skin: COMMON NORMALS: no rashes or lesions noted GENERAL SKIN EXAM: no rashes or lesions noted and ecchymosis Urinary Catheter Management^: Simeon: Cath Placed During This Visit: yes Reason for Continuing Indwelling Catheter: Accurate Measurement of Urinary Output in Critically Ill Patients Urinary Catheter Date of Insertion: 08/27/20 Urinary Catheter Time of Insertion: 16:04 TS Data Data Completed and Pending: Completed Studies During Hospitalization Category Date Time Status CT abdomen pelvis w con* [id number] Stat Cat Scan 08/27/20 14:[address] head wo con* [id number] Routine Cat Scan 09/05/20 18:[address] head wo con* 7 0450 Stat Cat Scan 08/27/20 11:28 Completed CXRP [XR chest 1V portable [id number]] S tat Exams 09/06/20 09:36 Completed FL guided lumbarp unc dx* [id number] Rout ine Exams 08/29/20 15:38 Completed FL guided lumbarp unc dx* [id number] Rout ine Exams 09/06/20 08:00 Completed XR chest 1V dia ble [id number] Routine Exams 09/03/20 11:57 Completed XR chest 1V dia ble [id number] Stat Exams 08/27/20 11:28 Completed XR chest 1V dia ble [id number] Stat Exams 08/29/20 13:42 Completed CV echo complete* [id number] Routine Ultrasound 09/01/20 11:03 Completed Pending at discharge Category Date Time Status ABO/Rh Type Routi ne Lab 09/06/20 20:38 Ordered SANTY Screen w/ Ref jamie Routine Lab 09/03/20 19:58 Results Blood Culture Sta t Lab 09/06/20 20:34 Ordered CSF Culture & Gra m Stain Routine Lab 09/06/20 15:48 Results Complete Crossmat ch Routine Lab 09/06/20 20:38 Ordered Comprehensive Met abolic Panel AM LA BS Lab 09/07/20 04:00 Ordered DIC Profile AM LA BS Lab 09/07/20 04:00 Ordered Frozen Plasma FZ <24 1st Cont Routi ne Lab 09/06/20 20:38 Ordered Lymes Disease Ant ibodies CSF Routin e Lab 08/28/20 14:55 Received Miscellaneous Una t Routine Lab 08/28/20 14:54 Received Miscellaneous Una t Routine Lab 08/28/20 18:16 Received Miscellaneous Una t Routine Lab 08/29/20 11:00 Received Miscellaneous Una t Routine Lab 08/30/20 04:15 Received Mycobacteria, Cul ture w/Fluor Routi ne Lab 08/29/20 11:00 Results Labs from last 24 hours 09/06/20 09/06/20 09/06/20 19:27 18:28 18:28 WBC RBC Hgb Hct MCV MCH MCHC RDW Plt Count MPV Neut % (Auto) Lymph % (Auto) [place] % (Auto) Eos % (Auto) Baso % (Auto) Neut # (Auto) Lymph # (Auto) [place] # (Auto) Eos # (Auto) Baso # (Auto) Nucleated RBC % (a uto) Nucleated RBCs # PT 27.30 H INR 2.48 H APTT 53.7 H Fibrinogen 57 L Fibrin Degrad Prod ucts Pos, >=40 H D-Dimer 19.22 H Sodium Potassium Chloride Carbon Dioxide Anion Gap BUN Creatinine GFR Calculation Glucose POC Glucose 244 H Calculated Osmolal ity Calcium Total Bilirubin AST ALT Alkaline Phosphata se Ammonia 103 H Total Protein Albumin Globulin CSF Appearance CSF Color CSF WBC CSF RBC CSF Mononuclear # Auto CSF Mononuclear WB Cs % CSF Polynuclear WB Cs # CSF Polynuclear WB Cs % CSF Diff Comment CSF Glucose CSF Total Protein 09/06/20 09/06/20 09/06/20 17:24 15:48 15:48 WBC RBC Hgb Hct MCV MCH MCHC RDW Plt Count MPV Neut % (Auto) Lymph % (Auto) [place] % (Auto) Eos % (Auto) Baso % (Auto) Neut # (Auto) Lymph # (Auto) [place] # (Auto) Eos # (Auto) Baso # (Auto) Nucleated RBC % (a uto) Nucleated RBCs # PT INR APTT Fibrinogen Fibrin Degrad Prod ucts D-Dimer Sodium Potassium Chloride Carbon Dioxide Anion Gap BUN Creatinine GFR Calculation Glucose POC Glucose 259 H Calculated Osmolal ity Calcium Total Bilirubin AST ALT Alkaline Phosphata se Ammonia Total Protein Albumin Globulin CSF Appearance Cloudy CSF Color Other CSF WBC 1377 H CSF RBC 0 CSF Mononuclear # Auto 1.373 L CSF Mononuclear WB Cs % 100 H CSF Polynuclear WB Cs # 0.004 CSF Polynuclear WB Cs % 0 CSF Diff Comment Yes CSF Glucose 54 CSF Total Protein 90 H 09/06/20 09/06/20 09/06/20 13:04 08:03 04:28 WBC RBC Hgb Hct MCV MCH MCHC RDW Plt Count MPV Neut % (Auto) Lymph % (Auto) [place] % (Auto) Eos % (Auto) Baso % (Auto) Neut # (Auto) Lymph # (Auto) [place] # (Auto) Eos # (Auto) Baso # (Auto) Nucleated RBC % (a uto) Nucleated RBCs # PT INR APTT Fibrinogen Fibrin Degrad Prod ucts D-Dimer Sodium 143 Potassium 3.3 L Chloride 108 H Carbon Dioxide 18 L Anion Gap 20.3 H BUN 56 H Creatinine 3.1 H GFR Calculation 15.2 L Glucose 214 H POC Glucose 208 H 244 H Calculated Osmolal ity 318 H Calcium 9.6 Total Bilirubin 5.1 H AST 36 H ALT 18 Alkaline Phosphata se 65 Ammonia Total Protein 6.5 L Albumin 4.1 Globulin 2.4 CSF Appearance CSF Color CSF WBC CSF RBC CSF Mononuclear # Auto CSF Mononuclear WB Cs % CSF Polynuclear WB Cs # CSF Polynuclear WB Cs % CSF Diff Comment CSF Glucose CSF Total Protein 09/06/20 09/05/20 04:28 21:18 WBC 9.1 RBC 2.35 L Hgb 8.3 L Hct 25.0 L MCV 106.4 H MCH 35.3 H MCHC 33.2 D RDW 20.5 H Plt Count 75 L MPV 11.5 H Neut % (Auto) 80.7 Lymph % (Auto) 8.5 [place] % (Auto) 7.8 Eos % (Auto) 1.3 Baso % (Auto) 0.8 Neut # (Auto) 7.31 Lymph # (Auto) 0.8 [place] # (Auto) 0.7 Eos # (Auto) 0.1 Baso # (Auto) 0.1 Nucleated RBC % (a uto) 0.7 Nucleated RBCs # 0.1 PT INR APTT Fibrinogen Fibrin Degrad Prod ucts D-Dimer Sodium Potassium Chloride Carbon Dioxide Anion Gap BUN Creatinine GFR Calculation Glucose POC Glucose 221 H Calculated Osmolal ity Calcium Total Bilirubin AST ALT Alkaline Phosphata se Ammonia Total Protein Albumin Globulin CSF Appearance CSF Color CSF WBC CSF RBC CSF Mononuclear # Auto CSF Mononuclear WB Cs % CSF Polynuclear WB Cs # CSF Polynuclear WB Cs % CSF Diff Comment CSF Glucose CSF Total Protein Vitals: Last Vital Signs Temp 96.1 F L 09/06/20 20:00 Pulse 63 09/06/20 20:38 Resp 20 H 09/06/20 20:31 BP 122/76 09/06/20 20:00 Pulse Ox 91 09/06/20 20:31 TS Medications Medications Home Medications albuterol sulfate 2 puff INHALATION Q6H PRN 08/27/20 [History Confirmed 08/27/20] amlodipine 10 mg PO DAILY 08/27/20 [History Confirmed 08/27/20] dulaglutide [Trulicity] 0.75 mg SUBCUT Q7D 08/27/20 [History Confirmed 08/27/20] gabapentin 100 mg PO TID 08/27/20 [History Confirmed 08/27/20] glipizide 5 mg PO DAILY 08/27/20 [History Confirmed 08/27/20] hydrochlorothiazide 25 mg PO DAILY 08/27/20 [History Confirmed 08/27/20] lovastatin 20 mg PO DAILY 08/27/20 [History Confirmed 08/27/20] metformin 1,000 mg PO BID 08/27/20 [History Confirmed 08/27/20] omeprazole 20 mg PO DAILY 08/27/20 [History Confirmed 08/27/20] sertraline 100 mg PO DAILY 08/27/20 [History Confirmed 08/27/20] tizanidine 4 mg PO TID PRN 08/27/20 [History Confirmed 08/27/20] tramadol 50 mg PO BID PRN 08/27/20 [History Confirmed 08/27/20] Active Medications Albuterol/Ipratropium (Ipratropium-Albuterol 3 Ml Neb) 3 ml INHALATION Q6H.RESPIRATORY SKY Last Admin: 09/06/20 20:30 Dose: 3 ml Documented by: Amlodipine Besylate (Amlodipine 10 Mg Tablet) 10 mg PO DAILY SKY Last Admin: 09/06/20 08:14 Dose: 10 mg Documented by: Bisacodyl (Bisacodyl 5 Mg Tablet) 10 mg PO DAILY PRN; Protocol PRN Reason: Constipation (see protocol) Budesonide (Budesonide 0.5 Mg/2 Ml Neb) 0.5 mg INHALATION BID.RESPIRATORY SKY Last Admin: 09/06/20 20:30 Dose: 0.5 mg Documented by: Dextrose (Dextrose 50% Syringe 50 Ml) 25 ml IVP ONCE PRN; Protocol PRN Reason: hypoglycemia protocol Dextrose (Dextrose 50% Syringe 50 Ml) 50 ml IVP PRN PRN; Protocol PRN Reason: hypoglycemia protocol Famotidine (Famotidine 20 Mg/2 Ml Inj) 20 mg IVP Q12H SKY Last Admin: 09/06/20 17:29 Dose: 20 mg Documented by: Glucagon (Glucagon 1 Mg/Ml Inj 1 Ml) 1 mg IM ONCE PRN; Protocol PRN Reason: Adult Acute Hypoglycemia Prot. Haloperidol Lactate (Haloperidol Inj 5 Mg/Ml Inj 1 Ml) 0.5 mg IVP Q4H PRN PRN Reason: AGITATION Dextrose (D5w) 500 mls @ 100 mls/hr IV ONCE PRN; Protocol PRN Reason: Adult Acute Hypoglycemia Prot Dexmedetomidine HCl 400 mcg/ (Sodium Chloride) 104 mls @ 0 mls/hr IV .Q0M SKY; Protocol Last Titration: 08/30/20 15:41 Dose: 0 mcg/kg/hr, 0 mls/hr Documented by: Norepinephrine Bitartrate 4 mg (/ Dextrose) 254 mls @ 0 mls/hr IV .Q0M SKY; Protocol Last Titration: 08/29/20 13:15 Dose: 0 mcg/min, 0 mls/hr Documented by: Albumin Human (Albumin) 25 gm in 100 mls @ 60 mls/hr IV Q8H SKY Last Admin: 09/06/20 20:30 Dose: 60 mls/hr Documented by: Dextrose/Sodium Chloride (Dextrose 5%-Sod Chloride 0.45%) 1,000 mls @ 50 mls/hr IV .Q20H SKY Last Admin: 09/06/20 13:17 Dose: 50 mls/hr Documented by: Amphotericin B 300 mg/ (Dextrose) 322 mls @ 125 mls/hr IV Q24H SKY Last Admin: 09/05/20 17:51 Dose: Not Given Documented by: Fluconazole (Diflucan Premix) 400 mg in 200 mls @ 200 mls/hr IV Q24H SKY Piperacillin Sod/Tazobactam (Sod 3.375 gm/ Sodium Chloride) 50 mls @ 12.5 mls/hr IV Q12H SKY; Protocol Last Admin: 09/06/20 20:31 Dose: 12.5 mls/hr Documented by: Insulin Aspart (Insulin Aspart 100 Unit/1 Ml) 0 unit SUBCUT WM&BEDTIME SKY; Protocol Last Admin: 09/06/20 20:26 Dose: 6 unit Documented by: Lactulose (Lactulose Oral Liq 20 Gm/30 Ml Udc) 20 gm PO Q6H SKY Last Admin: 09/06/20 16:15 Dose: Not Given Documented by: Lanolin (Lanolin Oint 7 Gm) 1 applic TOPICAL PRN PRN PRN Reason: DRYNESS Last Admin: 08/28/20 11:09 Dose: 1 applic Documented by: Lorazepam (Lorazepam 2 Mg/Ml Inj 1 Ml) 0.5 mg IVP ONCE PRN PRN Reason: ANXIETY Last Admin: 09/06/20 16:11 Dose: 0.5 mg Documented by: Metoprolol Tartrate (Metoprolol Tartrate 25 Mg Tablet) 25 mg PO BID@0900,2100 [facility] Last Admin: 09/06/20 08:28 Dose: Not Given Documented by: Nystatin (Nystatin Powder 15 Gm Btl) 1 applic TOPICAL BID [facility] Last Admin: 09/06/20 17:29 Dose: 1 applic Documented by: Ondansetron HCl (Ondansetron 2 Mg/Ml Sdv 2 Ml) 4 mg IVP Q8H PRN PRN Reason: vomiting, or N/V if npo Last Admin: 09/01/20 02:19 Dose: 4 mg Documented by: Discharge Plan Discharge Patient Disposition: Xfer Short-Term Hosp Condition: Stable Prescriptions: No Action tizanidine 4 mg tablet 4 mg PO TID PRN (Reason: Muscle Pain) RF: 0 sertraline 100 mg tablet 100 mg PO DAILY RF: 0 tramadol 50 mg tablet 50 mg PO BID PRN (Reason: Pain) RF: 0 amlodipine 10 mg tablet 10 mg PO DAILY RF: 0 metformin 1,000 mg tablet 1,000 mg PO BID RF: 0 omeprazole 20 mg capsule,delayed release(DR/EC) 20 mg PO DAILY RF: 0 hydrochlorothiazide 25 mg tablet 25 mg PO DAILY RF: 0 gabapentin 100 mg capsule 100 mg PO TID RF: 0 lovastatin 20 mg tablet 20 mg PO DAILY RF: 0 albuterol sulfate 90 mcg/actuation HFA aerosol inhaler 2 puff INHALATION Q6H PRN (Reason: Shortness Of Breath) RF: 0 glipizide 5 mg tablet 5 mg PO DAILY RF: 0 Trulicity 0.75 mg/0.5 mL pen injector 0.75 mg SUBCUT Q7D RF: 0 Patient Instructions: Opioid Safety Transfer Attestations Time Spent in Transfer Care*: greater than 30 min Quality Metrics Clinical Quality Measures: During this hospital stay, did patient experience: None Coding Level of Care Code Acute [employer] Department Supervisor for [facility] Fwd Diagnoses Cryptococcal meningitis B45.1 Disseminated cryptococcosis B45.7 Colitis K52.9 Liver cirrhosis K74.60 Hepatic cirrhosis type: unspecified hepatic cirrhosis Ascites presence: without ascites ELIEZER (acute kidney injury) N17.9
[2020-09-06 21:43] LABS: IGG Bands Present 41kD; Lyme Disease AB (IGG),IBL BAND(S) PRESENT; Lyme Disease AB (IGM), IBL NO BANDS DETECTED
[2020-09-06] MEDS: sodium chloride 0.9% 250 ML 10 ML IV (22:38)
[2020-09-07] VITALS (86 sets, daily range): BP systolic 84–128; BP diastolic 38–73; PULSE 59–92; RESP 14–37; TEMP 35.7–36.3; O2SAT 88–97
[2020-09-07] MEDS: ipratropium-albuterol 3 mL Neb INHALATION ×2 (02:55→08:11)
[2020-09-07 04:58] LABS: Basophils # 0.1 10^3/uL (0.0-0.1); Basophils % 0.8 %; Eosinophils # 0.1 10^3/uL (0.0-0.8); Hematocrit 23.4 % (37.0-47.0); Hemoglobin 7.5 g/dL (11.5-15.3); Lymphocytes # 0.8 10^3/uL (0.8-4.8); Lymphocytes % 7.6 %; Mean Corpuscular HGB Conc 32.1 g/dL (30.0-36.0); Mean Corpuscular Hemoglobin 35.7 pg (28.0-34.0); Mean Corpuscular Volume 111.4 fL (81-99); Mean Platelet Volume 11.4 fL (7.4-10.4); Monocytes # 0.7 10^3/uL (0.2-0.9); Monocytes % 7.4 %; Neutrophils # 8.09 10^3/uL (1.8-7.7); Neutrophils % 81.9 %; Nucleated Red Blood Cells # 0.1 /100WBC; Nucleated Red Blood Cells % 0.8 %; Platelet Count 65 10^3/cmm (130-400); Red Cell Distribution Width 21.1 % (12.1-15.1); White Blood Count 9.9 10^3/uL (4.0-10.0)
[2020-09-07] MEDS: famotidine 20 mg/2 mL INJ IVP ×2 (05:12→15:46)
[2020-09-07 05:13] LABS: INR 2.01 (0.8-1.2)
[2020-09-07 05:14] LABS: Partial Thromboplastin Time 47.4 SECONDS (23.9-36.7)
[2020-09-07 05:31] LABS: D Dimer 19.13 ug/mIFEU (0-0.59)
[2020-09-07 05:51] LABS: Fibrinogen 82 mg/dL (174-498)
[2020-09-07] MEDS: piperacillin-tazobactam 3.375 GM in sodium chloride 0.9% (plus) 50 ML IV (07:37)
[2020-09-07] MEDS: budesonide 0.5 mg/2 mL Neb INHALATION (08:11)
[2020-09-07 09:19] LABS: Alanine Aminotransferase 19 U/L (0-33); Albumin Level 4.7 g/dL (3.5-5.2); Alkaline Phosphatase 67 IU/L (35-105); Aspartate Amino Transferase 35 U/L (0-32); Blood Urea Nitrogen 65 mg/dL (8-23); Calcium 9.7 mg/dL (8.5-10.5); Carbon Dioxide 20 mmol/L (22-29); Chloride 108 mmol/L (98-107); Globulin 2.4 g/dL (1.3-4.6); Glucose 238 mg/dL (65-115); Osmolality Calculated 324 mOsm/kg (285-295); Sodium 144 mmol/L (136-145); Total Bilirubin 4.9 mg/dL (0.15-1.2); Total Protein 7.1 g/dL (6.6-8.7)
[2020-09-07 10:03] LABS: Anion Gap 20.2 (5-19); Potassium 4.2 mmol/L (3.5-5.1)
[2020-09-07] MEDS: lactulose oral liq 20 gm/30 mL UDC PO (10:43)
[2020-09-07] MEDS: nystatin powder 15 gm Btl 1 APPLIC TOPICAL (11:08)
--- NOTE | 2020-09-07 11:17 | PC.NURSE ---
11:15 lactulose given per rectum per dr. cid verbal order, using a herrera catheter and 60cc catheter tip syringe, followed by 10cc water to flush meds from catheter.
[2020-09-07 11:18] LABS: Glucose Point of Care 252 mg/dL (70-110)
[2020-09-07] MEDS: metoprolol tartrate 25 mg Tablet PO (11:37)
--- NOTE | 2020-09-07 11:38 | PC.NURSE ---
10:00 unable to swallow 10 am meds
[2020-09-07] MEDS: dextrose 5%-sod chloride 0.45% 1,000 ML 50 ML IV (11:55)
--- NOTE | 2020-09-07 12:00 | PC.NURSE ---
1100 during skin care this am note reddness to lateral abd. area
--- NOTE | 2020-09-07 12:15 | PC.NURSE ---
during ani care not what appears to be vaginal bleeding.
--- NOTE | 2020-09-07 14:07 | DCPLANNER ---
Pg 2 of IM updated and explained to pt's Sister who is @ bedside. Copy provided.
[2020-09-07 14:56] LABS: SARS Covid-2 Antigen Negative (Negative)
--- NOTE | 2020-09-07 15:59 | PC.NURSE ---
preparing for transfer to [facility]
--- NOTE | 2020-09-07 16:46 | PC.NURSE ---
transported to flight pad. belongings went with sister earlier.
--- NOTE | 2020-09-07 17:05 | PM.PN ---
Subjective Subjective: Interval history: Please refer to transfer summary from 09/06. Did not end up transferring to [facility] last night. Today she has been rather lethargic. Speaking loudly, and with sternal rub did not that she could hear me, however, did not answer questions or otherwise follow commands. Earlier reportedly did suck on a sponge swab. Does not appear in distress. Vitals/I&O/Wt Last Vital Signs Temp 97.3 F L 09/07/20 14:40 Pulse 65 09/07/20 16:15 Resp 28 H 09/07/20 16:15 BP 106/57 09/07/20 16:30 Pulse Ox 93 09/07/20 16:15 09/07/20 09/07/20 09/07/20 06:59 14:59 22:59 Intake Total 777 / 2451.167 1150 / 1150 Output Total 0 / 35 Balance 777 / 2416.167 1150 / 1150 Weight last 48 hrs Weight 130.499 kg Weight 128.956 kg Physical Exam Const: COMMON NORMALS: no acute distress GENERAL APPEARANCE: lethargic NUTRITIONAL APPEARANCE: obese ORIENTATION/CONSCIOUSNESS: Yes lethargic HENMT: COMMON NORMALS: oropharynx normal Neck/C-Spine: COMMON NORMALS: no JVD Resp: COMMON NORMALS: normal respiratory effort and clear to auscultation bilaterally AUSCULTATION: clear to auscultation bilaterally Cardio: COMMON NORMALS: no JVD, regular rhythm, S1 normal heart sound present, S2 normal heart sound present and No murmurs present (Cardio) RHYTHM: regular rhythm HEART SOUNDS: S1 normal heart sound present and S2 normal heart sound present GI: COMMON NORMALS: Normal to inspection, nondistended, normoactive bowel sounds present, Soft to palpation and non-tender PALPATION: Yes Soft to palpation OTHER: Some noted hematochezia. : OTHER: Minimal hematuria, mild sediment noted Extremity: COMMON NORMALS: no joint enlargement and no pedal edema Neuro: COMMON NORMALS: moves all extremities SENSORIUM/ORIENTATION: Yes lethargic Skin: COMMON NORMALS: no rashes or lesions noted GENERAL SKIN EXAM: no rashes or lesions noted and ecchymosis Urinary Catheter Management^: Simeon: Cath Placed During This Visit: yes Reason for Continuing Indwelling Catheter: Accurate Measurement of Urinary Output in Critically Ill Patients Urinary Catheter Date of Insertion: 08/27/20 Urinary Catheter Time of Insertion: 16:04 Data : 09/07/20 04:18 09/07/20 08:45 Micro: Microbiology 09/06/20 21:25 Blood Culture - Preliminary Blood SPECIMEN COLLECTED 09/06/20 21:31 Blood Culture - Preliminary Blood SPECIMEN COLLECTED 09/06/20 15:48 Gram Stain - Final Cerebrospinal Fluid 09/06/20 15:48 Cryptococcal Antigen - Final Cerebrospinal Fluid A&P Assessment and plan (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 Cryptococcal antigen negative. Noted with DIC. Worsening anemia. Noted some hematuria, hematochezia. Worsening mental status. Some decompensation of cirrhosis, with worsening ammonia. Recurrence of hypothermia. Persistently worsening renal function. Discussed with twin sister and a brother at bedside. We were not successful trying to get her transfer to the hospitals of choice. As per discussion [facility] considered and currently accepted for transfer for additional care where she will be transferring today to attempt alternative methods of induction possibly with flucytosine and additional ICU support. Additionally empirically covered with Zosyn due to hypothermia, DIC, tachypnea, some patchy infiltrates, possibility of aspiration, consideration possible contributing to DIC. Status: Acute (2) DIC (disseminated intravascular coagulation): Received 2 units FFP last night. INR with improvement to 2.01. Fibrinogen with improvement to 82. Persistent positive fibrillation products. D-dimer 19.13. So far we have not noted sign of clotting. For now not on anticoagulation due to bleeding without noted clotting. Additional 2 units FFP requested today. Continue treatment of underlying conditions as above. Monitor DIC parameters. 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 Status: Acute (4) Colitis: Enteric bacterial, parasite panel negative. C. difficile negative. Lactoferrin negative. Positive Hemoccult. Some hematochezia noted currently, but with DIC. Status: Acute (5) Liver cirrhosis: hepatitis screen negative SANTY negative. AMA pending. Unknown duration of cirrhosis. Appears with decompensation. Mild ascites noted on presentation on CT. On lactulose. Worsening ammonia level. Worsening of INR, thrombocytopenia, although in the setting of DIC. Will need additional work-up, follow-up once her acute condition. Discussed with [facility] also consideration of possibility of hepatorenal syndrome given lack of response to albumin infusions. Status: Acute Qualifiers: Ascites presence: without ascites Hepatic cirrhosis type: unspecified hepatic cirrhosis Qualified Code(s): K74.60 - Unspecified cirrhosis of liver (6) ELIEZER (acute kidney injury): Prerenal by urine studies. Continued on albumin infusion. Possibility of hepatorenal syndrome as above discussed with [facility]. Status: Acute (7) Hypothermia: Improving w rewarming. CT head without change. Additionally empirically added Zosyn as above. Status: Acute Additional A&P Information HIV excluded based on further testing Attestations Medical Necessity Statement*: Transferred to [facility] for additional assessment and treatment. 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
--- NOTE | 2020-09-07 17:08 | PC.NURSE ---
sister jack took clothing and belongings home with her.
[2020-09-25 07:15] LABS: Miscellaneous Test See Scanned Lab Rpt
== END 2020-09-07 17:00 | DRG 871 ==
LOC: ER 12:17 → ICU 15:57
PROVIDERS: Internal Medicine; Student in an Organized Health Care Education/Training Program; Admitting Provider Student in an Organized Health Care Education/Training Program; Emergency Provider Family Medicine; PCP Nurse Practitioner Family; Visit Provider Internal Medicine
DX: A41.9 Sepsis, unspecified organism (principal); G93.41 Metabolic encephalopathy; B45.1 Cerebral cryptococcosis; J69.0 Pneumonitis due to inhalation of food and vomit; I50.32 Chronic diastolic (congestive) heart failure; E87.3 Alkalosis; R18.8 Other ascites; B45.7 Disseminated cryptococcosis; E87.0 Hyperosmolality and hypernatremia; N17.9 Acute kidney failure, unspecified; Z68.41 Body mass index [BMI] 40.0-44.9, adult; E11.9 Type 2 diabetes mellitus without complications; I11.0 Hypertensive heart disease with heart failure; E78.5 Hyperlipidemia, unspecified; Z87.891 Personal history of nicotine dependence; K52.9 Noninfective gastroenteritis and colitis, unspecified; I35.0 Nonrheumatic aortic (valve) stenosis; K74.60 Unspecified cirrhosis of liver; I95.9 Hypotension, unspecified; Z66 Do not resuscitate; E87.5 Hyperkalemia; E66.01 Morbid (severe) obesity due to excess calories; Z79.4 Long term (current) use of insulin; I27.20 Pulmonary hypertension, unspecified; K42.9 Umbilical hernia without obstruction or gangrene; K57.30 Diverticulosis of large intestine without perforation or abscess without bleeding; Z78.0 Asymptomatic menopausal state; R68.0 Hypothermia, not associated with low environmental temperature
CPT/HCPCS: 36415; 36416; 36430; 36569; 36592; 36600; 51702; 62328; 70450; 71045; 74177; 80048; 80051; 80053; 80202; 80306; 80307; 80320; 80500; 81001; 82009; 82140; 82247; 82248; 82274; 82330; 82436; 82550; 82570; 82607; 82728; 82746; 82803; 82805; 82945; 82955; 82962; 83010; 83036; 83540; 83550; 83605; 83615; 83630; 83690; 83735; 83880; 84100; 84132; 84133; 84145; 84157; 84300; 84443; 85025; 85045; 85362; 85378; 85384; 85610; 85730; 86038; 86140; 86360; 86403; 86480; 86592; 86617; 86618; 86653; 86658; 86666; 86689; 86695; 86696; 86705; 86706; 86709; 86710; 86735; 86757; 86765; 86777; 86778; 86788; 86789; 86803; 86850; 86880; 86900; 86927; 87015; 87040; 87070; 87075; 87077; 87116; 87205; 87206; 87327; 87340; 87389; 87426; 87449; 87491; 87493; 87496; 87506; 87530; 87536; 87591; 87641; 87798; 87801; 87804; 87806; 88184; 88185; 89050; 92526; 92610; 93005; 93306; 94640; 94664; 96372; 96374; 96375; 96376; 97110; 97161; 99285; 99291; 99292; J0133; J0289; J0290; J0696; J1200; J1450; J1630; J1644; J1650; J1815; J1940; J2060; J2405; J2543; J2765; J3370; J3475; J3480; J3486; J3490; J7030; J7040; J7050; J7626; J7799; P9017; P9047; Q9967